=== PATIENT | female | born 1965 | race Caucasian/White ===

== ENCOUNTER → 2016-08-19 | Outpatient (CLI) | payer OTHER ==
[~2016-08-19] MED LIST: /CARB20TAB OR; /CARBXR20T OR; /RANI15TA PO; ALDA25TA2 OR; CALC500T49 OR; CALCITROL OR; CARI350T; CARV6.25 OR; CELE40TA PO; CLON-412 PO; COL; COLA100C2 OR; CRES5TAB; CYCL10TA PO; DYAZ37.5; FURO80TA2 OR; GABA600T3; LEVO200T OR; LEVO200T4 PO; LISI10TA4 OR; MERIDIA; MIRA3350 PO; MIRALEX PO; MORP15TA PO; MORP30TASA PO; NUCY100T15 PO; NUCYNTA PO; OMEP20TA7 OR; OXYC10TA12 OR; OXYC15TA76 PO; OXYC1TAB16 PO; OXYC5CAP2 PO; PERC5TAB8 OR; PERC7.5T8 OR; PRAV10TA2 OR; PRAV10TA4 OR; SKEL-29 PO; SKEL800T5; SKEL800T5 OR; SOMA350T; SPIR25TA2 OR; SPIR25TA2 PO; TIZA4TAB OR; TUMS500C OR; VICODINES TAB; ZOLO50TA PO; [UNRECOGNIZED DRUG - OTHER] PO; nucynta PO
--- NOTE | 2016-09-09 23:38 | ECWPNPC ---
PATIENT NAME: JUNIOR CURTIS : 1965 GENDER: FEMALE VISIT DATE: 08/19/2016 DISCHARGE DATE: 08/19/16 1221 VISIT LOCKED DATE TIME: PHYSICIAN: SHANNAN LOPEZ RESOURCE: SHANNAN LOPEZ REASON FOR APPOINTMENT 1. ARM HISTORY OF PRESENT ILLNESS HISTORY OF PRESENT ILLNESS: PAIN THE PATIENT DESCRIBES THE PAIN... FALL RISK SCREENING: SCREENING :NO FALLS IN THE PAST YEAR TODAY'S VISIT: NOTES: RETURNS TODAY FOR FIRST VISIT SINCE WINTERING IN [place]. WC FOLLOWUP FOR RIGHT ARM PAIN/RIGHT HAND/ELBOW. RATES PAIN TODAY 7/10. HAS IMPROVED MOTION IN THUMB, BUT CAN BARELY MOVE FINGERS. [place] MOVEMENT OF LEFT HAND CAUSES SHARP SHOOTING PAIN UP LEFT HAND AND ARM. . CURRENT MEDICATIONS TAKING KEFLEX 500 MG CAPSULE 1 CAPSULE ORALLY FOUR TIMES DAILY TAKING DIFLUCAN 150 MG TABLET 1 TABLET DIRECTED 1 TODAY AND REPEAT X 1 IN 10 DAYS TAKING CELEXA 40 MG TABLET 1 TABLET ORALLY ONCE A DAY TAKING OMEPRAZOLE 20 MG CAPSULE DELAYED RELEASE 1 CAPSULE ORALLY ONES A DAY TAKING LEVOTHROID 112 MCG TABLET 2 TABLET ORALLY DAILY, NOTES: DR. JIM PONCE TAKING CARVEDILOL 6.25MG - DR DAVIDSON TABLET 1 TABLET WITH FOOD ORALLY TWICE A DAY (DR. DAVIDSON) TAKING FUROSEMIDE 80MG - DR DAVIDSON TABLET 2 TABLETS P.O. TWICE A DAY (DR. DAVIDSON) TAKING VITAMIN D3 4000 CAPSULE 1 CAPSULE ORALLY ONCE A DAY TAKING RANITIDINE HCL 150 MG CAPSULE 1 CAPSULE ORALLY ONCE A DAY, NOTES: ZANTAC TAKING SPIRONOLACTONE 25 MG TABLET 1 TABLET TWICE A DAY (DR. DAVIDSON) ORALLY 30 DAYS TAKING LISINOPRIL 10 MG TABLET 1 TABLET ORALLY ONCE A DAY (DR. DAVIDSON) TAKING PRAVASTATIN SODIUM 40 MG TABLET 1 TABLET ORALLY DAILY TAKING MIRALAX . POWDER DIRECTED ORALLY DAILY -17 GRAMS IN 8 OZ FLUID PRN CONSTIPATION - LARGE JAR TAKING METAXALONE 800 MG TABLET 1 TABLET ORALLY THREE TIMES A DAY (PAIN CLINIC), NOTES: SKELAXIN TAKING CARBAMAZEPINE ER 200 MG CAPSULE EXTENDED RELEASE 12 HOUR 2 CAPSULE ORALLY TWICE A DAY, NOTES: TEGRETOL TAKING MORPHINE SULFATE 30 MG TABLET 1 TABLET NEEDED ORALLY EVERY 4 -6 HRS PRN PAIN MDD=4 CHRONIC PAIN TAKING NUCYNTA ER 100 MG TABLET EXTENDED RELEASE 12 HOUR 1 TABLET ORALLY Q 6 HRS MDD=4 DISCONTINUED CARBAMAZEPINE ER 400 MG TABLET EXTENDED RELEASE 12 HOUR 2 CAPSULE ORALLY TWICE A DAY, NOTES: TEGRETOL DISCONTINUED RANITIDINE HCL 150 MG TABLET TAKE 1 TABLET BY MOUTH ONCE DAILY MEDICATION LIST REVIEWED AND RECONCILED WITH THE PATIENT PAST MEDICAL HISTORY DIASTOLIC CHF, ECHOCARDIOGRAM 6-14. LVEF 75%. [facility] WITH [facility]HD PAPILLARY THYROID CANCER FOLLICULAR VARIANT S/P THYROIDECTOMY AND RADIATION WITH RECURRENT LARYNGEAL NERVE INJURY- DR PONCE 10/30/10 FELI, REFUSES CPAP. TOBACCO ABUSE MORBID OBESITY REFLEX SYMPATHETIC DYSTROPHY OF LEFT ARM, 1988, ARM CAUGHT IN A MIXER WHILE AT WORK, OVER THE YEARS PAIN THE PERSISTEDLY GOT WORSE SCOLIOSIS HERNIATED DISC GERD BONE DENSITY 2013 =NORMAL=5 YEAR FOLLOW UP ALLERGIES NSAIDS: ALLERGY REVIEW OF SYSTEMS CONSTITUTIONAL: ANY CHANGE IN YOUR MEDICAL CONDITION? NO . CHILLS NO . FEVER NO . INFECTION: DO YOU HAVE NEW INFECTIONS? NO . DO YOU HAVE HISTORY OF MRSA? NO . MUSCULOSKELETAL: ANY NEW PATTERNS OF PAIN OR NUMBNESS? NO . GASTROENTEROLOGY: ANY NEW CHANGE IN BOWEL CONTROL? NO . GENITOURINARY: ANY NEW CHANGE IN BLADDER CONTROL? NO . IS THERE A CHANCE YOU COULD BE ? NO . HEMATOLOGY/LYMPH: DO YOU TAKE ANY BLOOD THINNERS? (FOR EXAMPLE- COUMADIN, PLAVIX, AGGRENOX, PLATEL, PRADAXA, OR XARELTO) NO . WHEN WAS YOUR LAST DOSE? DATE: TIME: . NEUROLOGY: HAVE YOU FALLEN IN THE PAST 6 MONTHS? NO . ANY NEW EXTREMITY NUMBNESS OR WEAKNESS? NO . CARDIOLOGY: DO YOU HAVE A PACEMAKER OR DEFIBRILLATOR? NO . CHEST PAIN PATIENT DENIES . LEG EDEMA DENIES . RESPIRATORY: HAVE YOU BEEN SICK IN THE PAST WEEK? NO . FEVER NO . FLU LIKE SYMPTOMS? NO . COUGH NO . INTEGUMENTARY: DO YOU HAVE ANY RASHES OR OPEN SORES? NO . ALLERGIC/IMMUNO: ARE YOU ALLERGIC TO SHELLFISH OR IV DYE? NO . ANY NEW ALLERGIES? NO . PSYCHIATRIC: DO YOU HAVE THOUGHTS OF HURTING YOURSELF OR SOMEONE ELSE? NO . ARE YOU ABUSED, NEGLECTED, OR IN AN UNSAFE ENVIRONMENT? NO . ENDOCRINOLOGY: THYROID DISEASE HX OF THYROID CANCER, FOLLOWED CLOSELY BY JMI PONCE MD . ARE YOU DIABETIC? NO . OTHER: DO YOU NEED ANY PRESCRIPTIONS? NO . IF YES, PLEASE LIST: ____ . ANY NEW PROBLEMS WITH YOUR MEDICATIONS? NO . WHEN DID YOU LAST EAT? ____ . WHEN DID YOU LAST DRINK? ____ . WHAT DID YOU LAST DRINK? ____ . NAME OF PERSON DRIVING YOU HOME? ____ . DO YOU HAVE ANY OTHER QUESTIONS OR CONCERNS NO . HEENT: GENERAL SEEING ENT SPECIALIST FOR POSSIBLE SALIVARY/PAROTID STONES AND IS TO HAVE SCAN OF FACE DONE. . REVIEWED BY: PROVIDER: SHANNAN MEDRANO . VITAL SIGNS WT 296.8 LBS, HT 65 IN, BMI 49.38 INDEX, BP 146/83 MM HG, HR 84 /MIN, RR 20 /MIN, TEMP 99.0 F, OXYGEN SAT % 94%, NA INITIALS SC 11:28, REVIEWED BY: CM. EXAMINATION GENERAL EXAMINATION: GENERAL APPEARANCE:OBESE. HEENT:OICE BREATHY, RASPY. TENDER OVER LEFT ANTERIOR CERVICAL LYMPH CHAIN.. FACE:EDEMA AND TENDERNESS OVER LEFT CHEEK, JAW AND SOFT TISSUES OF THROAT.. LUNGS:CLEAR TO AUSCULTATION BILATERALLY, NO WHEEZES, RALES. OR RHONCHI. HEART:HEART RATE REGULAR, NORMAL S1S2, NO MURMURS, CLICK OR RUBS. MUSCULOSKELETAL:ALLODYNIA TO ANY TOUCH OVER LEFT HAND, FORARM, ELBOW, DETOID. VERY POOR FLEXION/EXTENSION OF FINGERS LEFT HAND. NO OBSERVED SPONTANEOUS MOVEMENT OF LEFT FINGERS OR HAND. TRIGGER POINTS AND TIGHT FIBROUS BANDS NOTED OVER LEFT DELTOID, ANTERIOR CHEST WALL AND OVER LEFT SCAPULA. ASSESSMENTS NEURALGIA - M79.2 (PRIMARY) MYALGIA - M79.1 CHRONIC PRESCRIPTION OPIATE USE - Z79.891 TREATMENT NEURALGIA REFILL CARBAMAZEPINE ER CAPSULE EXTENDED RELEASE 12 HOUR, 200 MG, 2 CAPSULE, ORALLY, TWICE A DAY, 30 DAY(S), 120, REFILLS 3 LAB: CARBAMAZEPINE (TEGRETOL) LEVEL CARBAMAZEPINE 9.3 (4.0-10.0 - UG/ML) NOTES: UTOX TODAY. CLINICAL NOTES: ISTOP REGISTRY REVIEWED AND DEMNOSTRATES COMPLLIANCE. BRINGS IN MEDICATIONS WHICH IS APPROPRIATE FOR WHAT WAS DISPENSED. RECENT URINE TOXICOLOGY REVIEWED. NO UNAUTHORIZED MEDICATIONS. NO ILLICIT SUBSTANCES AND PRESCRIBED MEDICATIONS WERE PRESENT. PROCEDURES PN WORKMANS' COMP OPINION IN YOUR OPINION, WAS THE INCIDENT THAT THE PATIENT DESCRIBED THE COMPETENT MEDICAL CAUSE OF THIS INJURY/ILLNESS? YES ARE THE PATIENT'S COMPLAINTS CONSISTENT WITH HIS/HER HISTORY OF THE INJURY/ILLNESS? YES IS THE PATIENT'S HISTORY OF THE INJURY/ILLNESS CONSISTENT WITH YOUR OBJECTIVE FINDING? YES WHAT IS THE PERCENTAGE OF TEMPORARY IMPAIRMENT? TOTAL = 100% IS THE PATIENT WORKING? NO DOCTOR ON SITE: EVERTON SAPP MD PROCEDURE CODES FA211 ESTABILISHED PATIENT [facility] CHARGE DISPOSITION & COMMUNICATION FOLLOW UP [address] SNOW - (REASON: WC LEFT ARM PAIN) ELECTRONICALLY SIGNED BY GONZALO REID ON 09/09/2016 AT 05:23 PM EDT DISCLAIMER : THIS IS A VISIT SUMMARY EXTRACTED FROM THE [employer] CHART. IT IS NOT A COPY OF THE [employer] PROGRESS NOTE. JUAN PABLO
== END ==
LOC: M PAIN 11:00
PROVIDERS: ATTEND Nurse Practitioner Family
DX: G89.29 Other chronic pain (principal); M79.2 Neuralgia and neuritis, unspecified; M79.1 Myalgia; I10 Essential (primary) hypertension; K21.9 Gastro-esophageal reflux disease without esophagitis; G47.33 Obstructive sleep apnea (adult) (pediatric); C73 Malignant neoplasm of thyroid gland; E55.9 Vitamin D deficiency, unspecified; Z72.0 Tobacco use; E66.9 Obesity, unspecified; Z68.42 Body mass index [BMI] 45.0-49.9, adult; Z88.6 Allergy status to analgesic agent; Z79.891 Long term (current) use of opiate analgesic; Z79.899 Other long term (current) drug therapy

== ENCOUNTER → 2016-08-23 | Outpatient (REF) | payer MEDICARE, OTHER ==
[~2016-08-23] MED LIST changes: +NUCY100T11 PO; -NUCY100T15 PO; -SKEL-29 PO; +SKEL800T97 PO
[2016-08-23 13:28] LABS: FREE T4 1.24 NG/DL (0.76-1.46)
== END ==
LOC: M LABDRAW1 12:36
PROVIDERS: ATTEND Internal Medicine Endocrinology, Diabetes & Metabolism
DX: C73 Malignant neoplasm of thyroid gland (principal)

== ENCOUNTER → 2016-08-23 | Outpatient (REF) | payer MEDICARE, OTHER ==
[2016-08-23 13:24] LABS: ALBUMIN 3.9 GM/DL (3.2-5.2); ANION GAP 10 MEQ/L (8-16); BLOOD UREA NITROGEN 17 MG/DL (7-18); CALCIUM LEVEL 8.6 MG/DL (8.5-10.1); CARBON DIOXIDE LEVEL 28 MEQ/L (21-32); CHLORIDE LEVEL 102 MEQ/L (98-107); CHOLESTEROL LEVEL 224 MG/DL (<200); CREATININE FOR GFR 0.89 MG/DL (0.55-1.02); GLOMERULAR FILTRATION RATE > 60.0 (>51); GLUCOSE, FASTING 104 MG/DL (70-105); PHOSPHORUS LEVEL 3.7 MG/DL (2.5-4.9); POTASSIUM SERUM 4.3 MEQ/L (3.5-5.1); SODIUM LEVEL 140 MEQ/L (136-145); TRIGLYCERIDES LEVEL 204 MG/DL (<150)
== END ==
LOC: M LABDRAW1 12:37
PROVIDERS: ATTEND Nurse Practitioner Family
DX: I11.0 Hypertensive heart disease with heart failure (principal); E78.5 Hyperlipidemia, unspecified

== ENCOUNTER → 2016-08-23 | Outpatient (REF) | payer OTHER ==
[~2016-08-23] MED LIST changes: -LEVO200T4 PO; -MIRA3350 PO; +MIRALEX OR; -MIRALEX PO; -MORP30TASA PO; -NUCY100T11 PO; -SKEL800T97 PO; -SPIR25TA2 PO
== END ==
LOC: M LABDRAW1 12:38
PROVIDERS: ATTEND Nurse Practitioner Family
DX: M79.2 Neuralgia and neuritis, unspecified (principal)

== ENCOUNTER → 2016-08-29 | Outpatient (REF) | payer MEDICARE ==
[~2016-08-29] MED LIST changes: +LEVO200T4 PO; +MIRA3350 PO; -MIRALEX OR; +MIRALEX PO; +MORP30TASA PO; +NUCY100T15 PO; +SKEL-29 PO; +SPIR25TA2 PO
[2016-08-29 16:11] LABS: BASO # 0.1 K/mm3 (0.0-0.2); BASO % 0.6 % (0.0-1.0); EOS # 0.3 K/mm3 (0.0-0.50); EOS % 2.2 % (0.0-3.0); LARGE UNSTAINED CELL # 0.3 K/mm3 (0.0-0.4); LYMPH # 2.6 K/mm3 (1.5-4.5); LYMPH % 18.1 % (24.0-44.0); MEAN CORPUSCULAR HEMOGLOBIN 29.7 pg (27.0-33.0); MEAN CORPUSCULAR HGB CONC 33.1 g/dl (32.0-36.5); MEAN CORPUSCULAR VOLUME 89.7 fl (80.0-96.0); MONO # 0.8 K/mm3 (0.0-0.8); MONO % 6.6 % (0.0-5.0); NEUTROPHILS # 8.9 K/mm3 (1.8-7.7); NEUTROPHILS % 70.4 % (36.0-66.0); PLATELET COUNT, AUTOMATED 301 k/mm3 (150-450); RED CELL DISTRIBUTION WIDTH 14.1 % (11.5-14.5); WHITE BLOOD COUNT 12.7 K/mm3 (4.0-10.0)
[2016-08-29 16:43] LABS: ALBUMIN 3.9 GM/DL (3.2-5.2); ALBUMIN/GLOBULIN RATIO 1.03 (1.00-1.93); ALKALINE PHOSPHATASE 83 U/L (45-117); ALT/SGPT 24 U/L (12-78); ANION GAP 7 MEQ/L (8-16); AST/SGOT 13 U/L (15-37); BILIRUBIN,TOTAL 0.3 MG/DL (0.2-1.0); BLOOD UREA NITROGEN 15 MG/DL (7-18); CALCIUM LEVEL 8.3 MG/DL (8.5-10.1); CARBON DIOXIDE LEVEL 33 MEQ/L (21-32); CHLORIDE LEVEL 100 MEQ/L (98-107); CREATININE FOR GFR 0.88 MG/DL (0.55-1.02); GLOMERULAR FILTRATION RATE > 60.0 (>51); GLUCOSE, FASTING 66 MG/DL (70-105); POTASSIUM SERUM 3.9 MEQ/L (3.5-5.1); SODIUM LEVEL 140 MEQ/L (136-145); TOTAL PROTEIN 7.7 GM/DL (6.4-8.2)
== END ==
LOC: M SFHCPLAZ 14:05
PROVIDERS: ATTEND Physician Assistant
DX: Z01.818 Encounter for other preprocedural examination (principal); C73 Malignant neoplasm of thyroid gland; M25.774 Osteophyte, right foot; G47.33 Obstructive sleep apnea (adult) (pediatric); I11.0 Hypertensive heart disease with heart failure; I50.30 Unspecified diastolic (congestive) heart failure; K21.9 Gastro-esophageal reflux disease without esophagitis; G90.519 Complex regional pain syndrome I of unspecified upper limb; Z72.0 Tobacco use
CPT/HCPCS: 36415; 80053; 85025; G0463

== ENCOUNTER → 2016-09-04 | Day surgery (SDC) | payer MEDICARE ==
[~2016-09-04] VITALS: Ht 165.1 cm; Wt 133.8 kg
[~2016-09-04] MED LIST changes: +BACITRACIN PWD 50,000 UNITS VIAL As Ordered ONE; +BUPIVACAINE HCL 0.5% 30 ML VIAL As Ordered ONE; +KETAMINE HCL 200 MG/20 ML VIAL As Ordered ONE; +LIDOCAINE 2% INJ 100 MG/5 ML SDV (FOR ANES.) As Ordered ONE; +LIDOCAINE 2% MDV 20 ML VIAL As Ordered ONE; +LR 1,000 ML IV ONE; +MIDAZOLAM INJ 2 MG/2 ML VIAL (J2250) As Ordered ONE; +NEOSPORIN GU IRRIG 20 ML VIAL As Ordered ONE; +PROPOFOL 200 MG/20 ML VIAL As Ordered ONE; +dexameTHASONE 4 MG/ML 1ML VIAL (J1100) As Ordered ONE; +fentaNYL 100 MCG/2 ML INJECTION (J3010) As Ordered ONE
[2016-09-04 15:45] VITALS: BP 132/74
--- NOTE | 2016-09-05 09:37 | RO ---
DATE OF PROCEDURE: 09/04/2016 PREPROCEDURE DIAGNOSIS: Subungual exostosis right foot. POSTPROCEDURE DIAGNOSIS: Subungual exostosis right foot. PROCEDURE: Excision of subungual exostosis right foot. Total nail plate avulsion right hallux. SURGEON: Roberto Mcdonough DPM SHORER: None. ANESTHESIA: Local, monitored anesthesia care (MAC). IRRIGATION: Dilute bacitracin, neomycin and polymyxin B solution. DESCRIPTION OF PROCEDURE: On 09/04/2016, this 51-year-old white female was taken from her hospital room to the operating room and placed on the operating room table in a supine position. Following the induction of IV sedation, local and regional anesthesia, the right lower extremity was prepped and draped in the usual aseptic manner. Attention was directed to the patient' s right foot and the following procedure was performed. NAIL PLATE AVULSION RIGHT HALLUX: Attention was directed to the patient's right foot and the hallux nail plate was avulsed utilizing a periosteal elevator and hemostat. The following procedure was then performed: EXCISION OF SUBUNGUAL EXOSTOSIS RIGHT DISTAL PHALANX OF THE HALLUX: Attention was directed to the patient's right hallux where an incision was made along the space between the nail bed and the skin on the hallux making a crescent shaped incision. Dissection was then carried down to the distal phalanx. Utilizing a periosteal elevator, a flap was created dorsally exposing the subungual exostosis. Utilizing a [place] bone splitting forceps, the exostosis was osteotomized. Any remaining spicules were then rongeured, followed by utilizing a hand held rasp. Intraoperative C-arm image revealed resection of the exostosis. The wound was flushed with copious amounts of dilute bacitracin, neomycin and polymyxin B solution. Bone wax was then placed over the distal phalanx, followed by Gelfoam. The incision was closed with #4-0 Prolene in a simple interrupted fashion. A dressing was applied consisting of Adaptic, 4 x 4's, Marky and Kerlix. The ankle tourniquet was rapidly deflated and instantaneous capillary filling time was noted in the patients right foot. The patient having apparently tolerated the surgical procedure well was taken from the operating room (OR) to the recovery room with vital signs stable and the patient afebrile for further monitoring by the anesthesia department. All surgical specimens removed during the operative procedure were sent to pathology for gross and microscopic examination. Postoperative instructions will be given upon discharge. edited: 09/12/2016 1525 tkf JUAN PABLO
== END | disposition home or self-care (01) ==
LOC: M SDC 11:20
PROVIDERS: ATTEND Podiatrist
DX: M25.774 Osteophyte, right foot (principal); I50.9 Heart failure, unspecified; I10 Essential (primary) hypertension; K21.9 Gastro-esophageal reflux disease without esophagitis; E78.5 Hyperlipidemia, unspecified; E04.1 Nontoxic single thyroid nodule; Z79.899 Other long term (current) drug therapy; Z88.8 Allergy status to other drugs, medicaments and biological substances; F17.210 Nicotine dependence, cigarettes, uncomplicated; Z92.3 Personal history of irradiation; Z85.850 Personal history of malignant neoplasm of thyroid; F32.9 Major depressive disorder, single episode, unspecified
CPT/HCPCS: 28124; 88300; J0690; J2250; J3010

== ENCOUNTER → 2016-10-17 | Outpatient (CLI) | payer OTHER, MEDICARE ==
[~2016-10-17] MED LIST changes: -BACITRACIN PWD 50,000 UNITS VIAL As Ordered ONE; -BUPIVACAINE HCL 0.5% 30 ML VIAL As Ordered ONE; -KETAMINE HCL 200 MG/20 ML VIAL As Ordered ONE; -LIDOCAINE 2% INJ 100 MG/5 ML SDV (FOR ANES.) As Ordered ONE; -LIDOCAINE 2% MDV 20 ML VIAL As Ordered ONE; -LR 1,000 ML IV ONE; -MIDAZOLAM INJ 2 MG/2 ML VIAL (J2250) As Ordered ONE; -NEOSPORIN GU IRRIG 20 ML VIAL As Ordered ONE; +NUCY100T11 PO; -NUCY100T15 PO; -PROPOFOL 200 MG/20 ML VIAL As Ordered ONE; -SKEL-29 PO; +SKEL800T97 PO; -dexameTHASONE 4 MG/ML 1ML VIAL (J1100) As Ordered ONE; -fentaNYL 100 MCG/2 ML INJECTION (J3010) As Ordered ONE
--- NOTE | 2016-10-29 01:32 | ECWPNPC ---
PATIENT NAME: JUNIOR CURTIS : 1965 GENDER: FEMALE VISIT DATE: 10/17/2016 DISCHARGE DATE: 10/17/16 1500 VISIT LOCKED DATE TIME: PHYSICIAN: EVERTON SNOW RESOURCE: EVERTON SNOW REASON FOR APPOINTMENT 1. WC RIGHT ARM HISTORY OF PRESENT ILLNESS HISTORY OF PRESENT ILLNESS: PAIN THE PATIENT DESCRIBES THE PAIN... 51 YEAR OLD FEMALE PATIENT WITH HISTORY OF CHRONIC RIGHT ARM PAIN. PATIENT DESCRIBES THE PAIN BURNING, SORE, AND SHOOTING WITH THE PAIN COMING AND GOING WITH A CURRENT PAIN SCORE OF 7/10. PATIENT WAS HURT WHILE WORKING AT [employer] IN 1988 A [place]. PATIENT STATES THAT SHE HAS NOT RECEIVED ANY SURGERY ON THE ARM AND THAT PHYSICAL THERAPY DID NOT AID IN PAIN RELIEF. PATIENT IS CURRENTLY USING SKELAXIN, NUCYNTA, MORPHINE, AND CARBAMAZEPINE ER AND REPORTS THAT THE MEDICATION KEEPS HER MOBILE AND FUNCTIONAL. PATIENT DENIES UNEXPLAINABLE WEIGHT LOSS, FEVER, CHILLS, NEW CHANGES ON HER URINARY OR BOWEL CONTROL. FALL RISK SCREENING: SCREENING :NO FALLS IN THE PAST YEAR CURRENT MEDICATIONS TAKING CELEXA 40 MG TABLET 1 TABLET ORALLY ONCE A DAY TAKING OMEPRAZOLE 20 MG CAPSULE DELAYED RELEASE 1 CAPSULE ORALLY ONES A DAY TAKING CARVEDILOL 6.25MG - DR DAVIDSON TABLET 1 TABLET WITH FOOD ORALLY TWICE A DAY (DR. DAVIDSON) TAKING FUROSEMIDE 80MG - DR DAVIDSON TABLET 2 TABLETS P.O. TWICE A DAY (DR. DAVIDSON) TAKING VITAMIN D3 4000 CAPSULE 1 CAPSULE ORALLY ONCE A DAY TAKING RANITIDINE HCL 150 MG CAPSULE 1 CAPSULE ORALLY ONCE A DAY, NOTES: ZANTAC TAKING SPIRONOLACTONE 25 MG TABLET 1 TABLET TWICE A DAY (DR. DAVIDSON) ORALLY 30 DAYS TAKING LISINOPRIL 10 MG TABLET 1 TABLET ORALLY ONCE A DAY (DR. DAVIDSON) TAKING PRAVASTATIN SODIUM 40 MG TABLET 1 TABLET ORALLY DAILY TAKING MIRALAX . POWDER DIRECTED ORALLY DAILY -17 GRAMS IN 8 OZ FLUID PRN CONSTIPATION - LARGE JAR TAKING METAXALONE 800 MG TABLET 1 TABLET ORALLY THREE TIMES A DAY (PAIN CLINIC), NOTES: SKELAXIN TAKING CARBAMAZEPINE ER 200 MG CAPSULE EXTENDED RELEASE 12 HOUR 2 CAPSULE ORALLY TWICE A DAY TAKING SYNTHROID 200 MCG TABLET 1 TABLET ON AN EMPTY STOMACH IN THE MORNING ORALLY ONCE A DAY TAKING NUCYNTA ER 100 MG TABLET EXTENDED RELEASE 12 HOUR 1 TABLET ORALLY Q 6 HRS MDD=4 TAKING MORPHINE SULFATE 15 MG TABLET 1 TABLET NEEDED ORALLY EVERY 6 HRS PRN PAIN MDD=4 NOT-TAKING KEFLEX 500 MG CAPSULE 1 CAPSULE ORALLY FOUR TIMES DAILY NOT-TAKING DIFLUCAN 150 MG TABLET 1 TABLET DIRECTED 1 TODAY AND REPEAT X 1 IN 10 DAYS NOT-TAKING LEVOTHROID 112 MCG TABLET 2 TABLET ORALLY DAILY, NOTES: DR. JIM PONCE MEDICATION LIST REVIEWED AND RECONCILED WITH THE PATIENT PAST MEDICAL HISTORY DIASTOLIC CHF, ECHOCARDIOGRAM 6-14. LVEF 75%. [facility] HTN WITH HHD PAPILLARY THYROID CANCER FOLLICULAR VARIANT S/P THYROIDECTOMY AND RADIATION WITH RECURRENT LARYNGEAL NERVE INJURY- DR PONCE 10/30/10 FELI, REFUSES CPAP. TOBACCO ABUSE MORBID OBESITY REFLEX SYMPATHETIC DYSTROPHY OF LEFT ARM, 1988, ARM CAUGHT IN A MIXER WHILE AT WORK, OVER THE YEARS PAIN THE PERSISTEDLY GOT WORSE SCOLIOSIS HERNIATED DISC GERD BONE DENSITY 2013 =NORMAL=5 YEAR FOLLOW UP ALLERGIES NSAIDS: ALLERGY REVIEW OF SYSTEMS REVIEWED BY: PROVIDER: EVERTON SNOW MD . CONSTITUTIONAL: ANY CHANGE IN YOUR MEDICAL CONDITION? NO . CHILLS NO . FEVER NO . INFECTION: DO YOU HAVE NEW INFECTIONS? NO . DO YOU HAVE HISTORY OF MRSA? NO . MUSCULOSKELETAL: ANY NEW PATTERNS OF PAIN OR NUMBNESS? NO . GASTROENTEROLOGY: ANY NEW CHANGE IN BOWEL CONTROL? NO . GENITOURINARY: ANY NEW CHANGE IN BLADDER CONTROL? NO . IS THERE A CHANCE YOU COULD BE ? NO . HEMATOLOGY/LYMPH: DO YOU TAKE ANY BLOOD THINNERS? (FOR EXAMPLE- COUMADIN, PLAVIX, AGGRENOX, PLATEL, PRADAXA, OR XARELTO) NO . WHEN WAS YOUR LAST DOSE? DATE: TIME: . NEUROLOGY: HAVE YOU FALLEN IN THE PAST 6 MONTHS? NO . ANY NEW EXTREMITY NUMBNESS OR WEAKNESS? NO . CARDIOLOGY: DO YOU HAVE A PACEMAKER OR DEFIBRILLATOR? NO . RESPIRATORY: HAVE YOU BEEN SICK IN THE PAST WEEK? NO . FEVER NO . FLU LIKE SYMPTOMS? NO . COUGH NO . INTEGUMENTARY: DO YOU HAVE ANY RASHES OR OPEN SORES? NO . ALLERGIC/IMMUNO: ARE YOU ALLERGIC TO SHELLFISH OR IV DYE? NO . ANY NEW ALLERGIES? NO . PSYCHIATRIC: DO YOU HAVE THOUGHTS OF HURTING YOURSELF OR SOMEONE ELSE? NO . ARE YOU ABUSED, NEGLECTED, OR IN AN UNSAFE ENVIRONMENT? NO . ENDOCRINOLOGY: ARE YOU DIABETIC? NO . OTHER: DO YOU NEED ANY PRESCRIPTIONS? NO . IF YES, PLEASE LIST: ____ . ANY NEW PROBLEMS WITH YOUR MEDICATIONS? NO . WHEN DID YOU LAST EAT? ____ . WHEN DID YOU LAST DRINK? ____ . WHAT DID YOU LAST DRINK? ____ . NAME OF PERSON DRIVING YOU HOME? ____ . DO YOU HAVE ANY OTHER QUESTIONS OR CONCERNS NO . VITAL SIGNS WT 294.4 LBS, HT 65 IN, BMI 48.99 INDEX, BP 127/73 MM HG, HR 89 /MIN, RR 18 /MIN, TEMP 96.0 F, OXYGEN SAT % 96%, NA INITIALS TL 1352, REVIEWED BY: CM. EXAMINATION : PATIENT IS ALERT O X 3 AND COOPERATIVE. HYPERPATHIA OVER RIGHT SHOULDER AREA. ALLODYNIA OVER ARM, AND UNABLE TO TOUCH THE HAND. PATIENT REPORTS COLOR AND TEMPERATURE CHANGES OF THE HAND WELL SWELLING. ASSESSMENTS NEURALGIA - M79.2 (PRIMARY) NEURALGIA RIGHT UPPER EXTREMITY. TREATMENT NEURALGIA REFILL CARBAMAZEPINE ER CAPSULE EXTENDED RELEASE 12 HOUR, 200 MG, 2 CAPSULE, ORALLY, TWICE A DAY, 30 DAY(S), 120, REFILLS 3 NOTES: WE DISCUSSED SEVERAL ISSUES WITH MR. HUNTER' PAIN MANAGEMENT CASE. AT THIS TIME THE PATIENT WILL CONTINUE WITH THE SAME MEDICATION REGIME BEFORE. PATIENT IS USING THE SKELAXIN FOR MUSCLE SPASMS, NUCYNTA AND MORPHINE FOR THE SOMATIC PAIN, AND CARBAMAZEPINE FOR THE NEUROPATHIC PAIN. PATIENT REPORTS TRYING TO DECREASE HER MORPHINE AND THE PAIN INCREASED SO SEVERELY SHE WAS NOT ABLE TO FUNCTION. URINE TOXICOLOGY REPORT DONE ON 08/19/16 SHOWS CONSISTENT RESULTS WITH THE PATIENT'S MEDICATION LIST. PATIENT WAS REMINDED TO BRING MEDS TO EACH VISIT. AT THIS TIME THE PATIENT DOES NOT WANT TO MOVE FORWARD WITH INJECTIONS. PATIENT WILL RETURN TO THE CLINIC IN 3 WEEKS TO FURTHER DISCUSS HER CASE. INSTRUCTIONS WERE GIVEN, QUESTIONS WERE ANSWERED, PATIENT REPORTS UNDERSTANDING AND AGREES WITH THE PLAN. I, VIET DEWEY, DOCUMENTED THE ABOVE INFORMATION ACTING A SCRIBE FOR DR. SNOW. I HAVE REVIEWED THE ABOVE DOCUMENT, WRITTEN BY VIET NASCIMENTO AND I VERIFY THAT IT IS ACCURATE. OTHERS REFILL NUCYNTA ER TABLET EXTENDED RELEASE 12 HOUR, 100 MG, 1 TABLET, ORALLY, Q 6 HRS MDD=4, 30 DAY(S), 120, REFILLS 0 REFILL METAXALONE TABLET, 800 MG, 1 TABLET, ORALLY, THREE TIMES A DAY NEEDED FOR SPASMS AND PAIN MDD3, 30 DAY(S), 90, REFILLS 0, NOTES: SKELAXIN REFILL MORPHINE SULFATE TABLET, 15 MG, 1 TABLET NEEDED, ORALLY, EVERY 6 HRS PRN PAIN MDD=4, 30 DAY(S), 120, REFILLS 0 PROCEDURES PN WORKMANS' COMP OPINION IN YOUR OPINION, WAS THE INCIDENT THAT THE PATIENT DESCRIBED THE COMPETENT MEDICAL CAUSE OF THIS INJURY/ILLNESS? YES ARE THE PATIENT'S COMPLAINTS CONSISTENT WITH HIS/HER HISTORY OF THE INJURY/ILLNESS? YES IS THE PATIENT'S HISTORY OF THE INJURY/ILLNESS CONSISTENT WITH YOUR OBJECTIVE FINDING? YES WHAT IS THE PERCENTAGE OF TEMPORARY IMPAIRMENT? TOTAL = 100% IS THE PATIENT WORKING? NO DOCTOR ON SITE: EVERTON SAPP MD PROCEDURE CODES FA211 ESTABILISHED PATIENT [facility] CHARGE G8427 DOC MEDS VERIFIED W/PT OR RE G8730 PAIN ASSESS POS TOOL F/U PLAN DOC DISPOSITION & COMMUNICATION FOLLOW UP 3 WEEKS ELECTRONICALLY SIGNED BY EVERTON SNOW MD ON 10/28/2016 AT 08:51 PM EDT DISCLAIMER : THIS IS A VISIT SUMMARY EXTRACTED FROM THE [employer] CHART. IT IS NOT A COPY OF THE [employer] PROGRESS NOTE. JUAN PABLO
== END ==
LOC: M PAIN 13:00
PROVIDERS: ATTEND Anesthesiology
DX: G89.29 Other chronic pain (principal); M79.601 Pain in right arm; M79.2 Neuralgia and neuritis, unspecified; I11.0 Hypertensive heart disease with heart failure; K21.9 Gastro-esophageal reflux disease without esophagitis; G47.33 Obstructive sleep apnea (adult) (pediatric); I50.30 Unspecified diastolic (congestive) heart failure; E55.9 Vitamin D deficiency, unspecified; Z72.0 Tobacco use; Z88.6 Allergy status to analgesic agent; Z79.899 Other long term (current) drug therapy

== ENCOUNTER → 2016-11-07 | Outpatient (CLI) | payer OTHER, MEDICARE ==
--- NOTE | 2016-11-26 01:18 | ECWPNPC ---
PATIENT NAME: JUNIOR CURTIS : 1965 GENDER: FEMALE VISIT DATE: 11/07/2016 DISCHARGE DATE: 11/07/16 1445 VISIT LOCKED DATE TIME: PHYSICIAN: EVERTON SNOW RESOURCE: EVERTON SNOW REASON FOR APPOINTMENT 1. LEFT ARM PAIN W/C HISTORY OF PRESENT ILLNESS HISTORY OF PRESENT ILLNESS: PAIN THE PATIENT DESCRIBES THE PAIN... 51 YEAR OLD FEMALE PATIENT WITH HISTORY OF CHRONIC LEFT ARM PAIN. PATIENT DESCRIBES THE PAIN BURNING, SORE, AND SHOOTING WITH THE PAIN COMING AND GOING WITH A CURRENT PAIN SCORE OF 7/10. PATIENT WAS HURT WHILE WORKING AT [employer] IN 1988 A [place]. PATIENT STATES THAT SHE HAS NOT RECEIVED ANY SURGERY ON THE ARM AND THAT PHYSICAL THERAPY DID NOT AID IN PAIN RELIEF. PATIENT IS CURRENTLY USING SKELAXIN, NUCYNTA, MORPHINE, AND CARBAMAZEPINE ER AND REPORTS THAT THE MEDICATION KEEPS HER MOBILE AND FUNCTIONAL .MRS. CURTIS STATES THAT SHE HAS INTENSE PAIN IF SOMETHING TOUCHES HER ARM. PATIENT DENIES UNEXPLAINABLE WEIGHT LOSS, FEVER, CHILLS, NEW CHANGES ON HER URINARY OR BOWEL CONTROL. FALL RISK SCREENING: SCREENING :NO FALLS IN THE PAST YEAR CURRENT MEDICATIONS TAKING CELEXA 40 MG TABLET 1 TABLET ORALLY ONCE A DAY TAKING OMEPRAZOLE 20 MG CAPSULE DELAYED RELEASE 1 CAPSULE ORALLY ONES A DAY TAKING CARVEDILOL 6.25MG - DR DAVIDSON TABLET 1 TABLET WITH FOOD ORALLY TWICE A DAY (DR. DAVIDSON) TAKING FUROSEMIDE 80MG - DR DAVIDSON TABLET 2 TABLETS P.O. TWICE A DAY (DR. DAVIDSON) TAKING VITAMIN D3 4000 CAPSULE 1 CAPSULE ORALLY ONCE A DAY TAKING RANITIDINE HCL 150 MG CAPSULE 1 CAPSULE ORALLY ONCE A DAY, NOTES: ZANTAC TAKING SPIRONOLACTONE 25 MG TABLET 1 TABLET TWICE A DAY (DR. DAVIDSON) ORALLY 30 DAYS TAKING LISINOPRIL 10 MG TABLET 1 TABLET ORALLY ONCE A DAY (DR. DAVIDSON) TAKING PRAVASTATIN SODIUM 40 MG TABLET 1 TABLET ORALLY DAILY TAKING MIRALAX . POWDER DIRECTED ORALLY DAILY -17 GRAMS IN 8 OZ FLUID PRN CONSTIPATION - LARGE JAR TAKING SYNTHROID 200 MCG TABLET 1 TABLET ON AN EMPTY STOMACH IN THE MORNING ORALLY ONCE A DAY TAKING CARBAMAZEPINE ER 200 MG CAPSULE EXTENDED RELEASE 12 HOUR 2 CAPSULE ORALLY TWICE A DAY TAKING NUCYNTA ER 100 MG TABLET EXTENDED RELEASE 12 HOUR 1 TABLET ORALLY Q 6 HRS MDD=4 TAKING METAXALONE 800 MG TABLET 1 TABLET ORALLY THREE TIMES A DAY NEEDED FOR SPASMS AND PAIN MDD3, NOTES: SKELAXIN TAKING MORPHINE SULFATE 30 MG TABLET 1 TABLET NEEDED ORALLY EVERY 6 HRS PRN PAIN MDD=4 NOT-TAKING KEFLEX 500 MG CAPSULE 1 CAPSULE ORALLY FOUR TIMES DAILY NOT-TAKING DIFLUCAN 150 MG TABLET 1 TABLET DIRECTED 1 TODAY AND REPEAT X 1 IN 10 DAYS NOT-TAKING LEVOTHROID 112 MCG TABLET 2 TABLET ORALLY DAILY, NOTES: DR. JIM PONCE MEDICATION LIST REVIEWED AND RECONCILED WITH THE PATIENT PAST MEDICAL HISTORY DIASTOLIC CHF, ECHOCARDIOGRAM 6-. LVEF 75%. [facility] HTN WITH HHD PAPILLARY THYROID CANCER FOLLICULAR VARIANT S/P THYROIDECTOMY AND RADIATION WITH RECURRENT LARYNGEAL NERVE INJURY- DR OPNCE 10/30/10 FELI, REFUSES CPAP. TOBACCO ABUSE MORBID OBESITY REFLEX SYMPATHETIC DYSTROPHY OF LEFT ARM, 1988, ARM CAUGHT IN A MIXER WHILE AT WORK, OVER THE YEARS PAIN THE PERSISTEDLY GOT WORSE SCOLIOSIS HERNIATED DISC GERD BONE DENSITY 2013 =NORMAL=5 YEAR FOLLOW UP ALLERGIES NSAIDS: ALLERGY REVIEW OF SYSTEMS REVIEWED BY: PROVIDER: EVERTON SNOW MD . CONSTITUTIONAL: ANY CHANGE IN YOUR MEDICAL CONDITION? NO . CHILLS NO . FEVER NO . INFECTION: DO YOU HAVE NEW INFECTIONS? NO . DO YOU HAVE HISTORY OF MRSA? NO . MUSCULOSKELETAL: ANY NEW PATTERNS OF PAIN OR NUMBNESS? NO . GASTROENTEROLOGY: ANY NEW CHANGE IN BOWEL CONTROL? NO . GENITOURINARY: ANY NEW CHANGE IN BLADDER CONTROL? NO . IS THERE A CHANCE YOU COULD BE ? NO . HEMATOLOGY/LYMPH: DO YOU TAKE ANY BLOOD THINNERS? (FOR EXAMPLE- COUMADIN, PLAVIX, AGGRENOX, PLATEL, PRADAXA, OR XARELTO) NO . WHEN WAS YOUR LAST DOSE? DATE: TIME: . NEUROLOGY: HAVE YOU FALLEN IN THE PAST 6 MONTHS? NO . ANY NEW EXTREMITY NUMBNESS OR WEAKNESS? NO . CARDIOLOGY: DO YOU HAVE A PACEMAKER OR DEFIBRILLATOR? NO . RESPIRATORY: HAVE YOU BEEN SICK IN THE PAST WEEK? NO . FEVER NO . FLU LIKE SYMPTOMS? NO . COUGH NO . INTEGUMENTARY: DO YOU HAVE ANY RASHES OR OPEN SORES? YES, 2 &QUOT;BOILS&QUOT; ON LEFT UPPER THIGH, PT PLANS TO SEE HER PRIMARY ABOUT THIS . ALLERGIC/IMMUNO: ARE YOU ALLERGIC TO SHELLFISH OR IV DYE? NO . ANY NEW ALLERGIES? NO . PSYCHIATRIC: DO YOU HAVE THOUGHTS OF HURTING YOURSELF OR SOMEONE ELSE? NO . ARE YOU ABUSED, NEGLECTED, OR IN AN UNSAFE ENVIRONMENT? NO . ENDOCRINOLOGY: ARE YOU DIABETIC? NO . OTHER: DO YOU NEED ANY PRESCRIPTIONS? NO . IF YES, PLEASE LIST: ____ . ANY NEW PROBLEMS WITH YOUR MEDICATIONS? NO . WHEN DID YOU LAST EAT? ____ . WHEN DID YOU LAST DRINK? ____ . WHAT DID YOU LAST DRINK? ____ . NAME OF PERSON DRIVING YOU HOME? ____ . DO YOU HAVE ANY OTHER QUESTIONS OR CONCERNS NO . VITAL SIGNS WT 292.8 LBS, HT 65 IN, BMI 48.72 INDEX, BP 123/95 MM HG, HR 92 /MIN, RR 18 /MIN, TEMP 96.7 F, OXYGEN SAT % 97%, SAFE IN ENV? (Y/N) YES, NA INITIALS SC13:51, REVIEWED BY: DAREN. EXAMINATION : PATIENT IS ALERT O X 3 AND COOPERATIVE. HYPERPATHIA OVER LEFT SHOULDER AREA. ALLODYNIA OVER ARM, AND UNABLE TO TOUCH THE HAND. PATIENT REPORTS COLOR AND TEMPERATURE CHANGES OF THE HAND WELL SWELLING. BLUE COLOR OVER PALM. DIFFICULTIES OPENING AND CLOSING HAND. UNABLE TO FOREST EXAMINER WITH LEFT HAND. ASSESSMENTS NEURALGIA - M79.2 (PRIMARY) NEURALGIA UPPER LEFT EXTREMITY. TREATMENT NEURALGIA REFILL CARBAMAZEPINE ER CAPSULE EXTENDED RELEASE 12 HOUR, 200 MG, 2 CAPSULE, ORALLY, TWICE A DAY, 30 DAY(S), 120, REFILLS 2 NOTES: WE DISCUSSED SEVERAL ISSUES WITH MR. HUNTER' PAIN MANAGEMENT CASE. AT THIS TIME THE PATIENT WILL CONTINUE WITH THE SAME MEDICATION REGIME BEFORE. PATIENT IS USING THE SKELAXIN FOR MUSCLE SPASMS, NUCYNTA AND MORPHINE FOR THE SOMATIC PAIN, AND CARBAMAZEPINE FOR THE NEUROPATHIC PAIN. PATIENT REPORTS TRYING TO DECREASE HER MORPHINE AND THE PAIN INCREASED SO SEVERELY SHE WAS NOT ABLE TO FUNCTION. PATIENT REPORTS METAXALONE KEEPS HER MOBILE, PATIENT IS ABLE TO SHOWER AND WASH HER HANDS WHILE USING THIS MEDICATION. URINE TOXICOLOGY REPORT DONE ON 08/19/16 SHOWS CONSISTENT RESULTS WITH THE PATIENT'S MEDICATION LIST. PATIENT BROUGHT HER MEDICATION TO TODAY'S VISIT IN THEIR ORIGINAL BOTTLES. PATIENT ALSO REPORTS SHE WILL BE USING HER CPAP EVERY NIGHT DUE TO SLEEP APNEA. AT THIS TIME THE PATIENT DOES NOT WANT TO MOVE FORWARD WITH INJECTIONS. PATIENT WILL RETURN TO THE CLINIC IN 3 WEEKS TO FURTHER DISCUSS HER CASE. INSTRUCTIONS WERE GIVEN, QUESTIONS WERE ANSWERED, PATIENT REPORTS UNDERSTANDING AND AGREES WITH THE PLAN. I, VIET DEWEY, DOCUMENTED THE ABOVE INFORMATION ACTING A SCRIBE FOR DR. SNOW. I HAVE REVIEWED THE ABOVE DOCUMENT, WRITTEN BY VIET NASCIMENTO AND I VERIFY THAT IT IS ACCURATE. OTHERS REFILL NUCYNTA ER TABLET EXTENDED RELEASE 12 HOUR, 100 MG, 1 TABLET, ORALLY, Q 6 HRS MDD=4, 30 DAY(S), 120, REFILLS 0 REFILL MORPHINE SULFATE TABLET, 30 MG, 1 TABLET NEEDED, ORALLY, EVERY 6 HRS PRN PAIN MDD=4, 30 DAY(S), 115, REFILLS 0 REFILL METAXALONE TABLET, 800 MG, 1 TABLET, ORALLY, THREE TIMES A DAY NEEDED FOR SPASMS AND PAIN MDD3, 30 DAY(S), 90, REFILLS 2, NOTES: SKELAXIN PROCEDURES PN WORKMANS' COMP OPINION IN YOUR OPINION, WAS THE INCIDENT THAT THE PATIENT DESCRIBED THE COMPETENT MEDICAL CAUSE OF THIS INJURY/ILLNESS? YES ARE THE PATIENT'S COMPLAINTS CONSISTENT WITH HIS/HER HISTORY OF THE INJURY/ILLNESS? YES IS THE PATIENT'S HISTORY OF THE INJURY/ILLNESS CONSISTENT WITH YOUR OBJECTIVE FINDING? YES WHAT IS THE PERCENTAGE OF TEMPORARY IMPAIRMENT? TOTAL = 100% IS THE PATIENT WORKING? NO DOCTOR ON SITE: EVERTON SAPP MD PROCEDURE CODES FA211 ESTABILISHED PATIENT [facility] FACILITY CHARGE G8427 DOC MEDS VERIFIED W/PT OR RE G8730 PAIN ASSESS POS TOOL F/U PLAN DOC DISPOSITION & COMMUNICATION FOLLOW UP 3 WEEKS ELECTRONICALLY SIGNED BY EVERTON SNOW MD ON 11/25/2016 AT 08:11 PM EDT DISCLAIMER : THIS IS A VISIT SUMMARY EXTRACTED FROM THE [employer] CHART. IT IS NOT A COPY OF THE [employer] PROGRESS NOTE. JUAN PABLO
== END ==
LOC: M PAIN 13:40
PROVIDERS: ATTEND Anesthesiology
DX: G89.29 Other chronic pain (principal); M79.602 Pain in left arm; M79.2 Neuralgia and neuritis, unspecified; I10 Essential (primary) hypertension; G47.33 Obstructive sleep apnea (adult) (pediatric); Z72.0 Tobacco use; E66.9 Obesity, unspecified; Z68.42 Body mass index [BMI] 45.0-49.9, adult; K21.9 Gastro-esophageal reflux disease without esophagitis; Z88.6 Allergy status to analgesic agent; Z79.899 Other long term (current) drug therapy

== ENCOUNTER → 2016-12-12 | Outpatient (REF) | payer MEDICARE, OTHER ==
[2016-12-12 18:29] LABS: ALBUMIN/GLOBULIN RATIO 0.98 (1.00-1.93); ALKALINE PHOSPHATASE 95 U/L (45-117); ALT/SGPT 30 U/L (12-78); ANION GAP 6 MEQ/L (8-16); AST/SGOT 14 U/L (15-37); BILIRUBIN,TOTAL 0.2 MG/DL (0.2-1.0); BLOOD UREA NITROGEN 13 MG/DL (7-18); CALCIUM LEVEL 8.4 MG/DL (8.5-10.1); CARBON DIOXIDE LEVEL 34 MEQ/L (21-32); CHLORIDE LEVEL 100 MEQ/L (98-107); CHOLESTEROL LEVEL 246 MG/DL (<200); CREATININE FOR GFR 0.85 MG/DL (0.55-1.02); GLOMERULAR FILTRATION RATE > 60.0 (>51); GLUCOSE, FASTING 74 MG/DL (70-105); POTASSIUM SERUM 4.3 MEQ/L (3.5-5.1); SODIUM LEVEL 140 MEQ/L (136-145); TOTAL PROTEIN 8.1 GM/DL (6.4-8.2); TRIGLYCERIDES LEVEL 213 MG/DL (<150)
[2016-12-12 19:01] LABS: MEAN CORPUSCULAR HEMOGLOBIN 30.2 pg (27.0-33.0); MEAN CORPUSCULAR HGB CONC 33.4 g/dl (32.0-36.5); MEAN CORPUSCULAR VOLUME 90.3 fl (80.0-96.0); RED CELL DISTRIBUTION WIDTH 13.7 % (11.5-14.5)
== END ==
LOC: M SFHCPLAZ 14:23
PROVIDERS: ATTEND Nurse Practitioner Adult Health
DX: Z00.00 Encounter for general adult medical examination without abnormal findings (principal); E78.2 Mixed hyperlipidemia
CPT/HCPCS: 36415; 80053; 80061; 85027; 90732; G0009

== ENCOUNTER → 2016-12-27 | Outpatient (CLI) | payer OTHER, MEDICARE ==
--- NOTE | 2017-01-25 01:31 | ECWPNPC ---
PATIENT NAME: JUNIOR CURTIS : 1965 GENDER: FEMALE VISIT DATE: 12/27/2016 DISCHARGE DATE: 12/27/16 1432 VISIT LOCKED DATE TIME: PHYSICIAN: SHANNAN LOPEZ RESOURCE: SHANNAN LOPEZ REASON FOR APPOINTMENT 1. W/C LEFT ARM HISTORY OF PRESENT ILLNESS FALL RISK SCREENING: SCREENING :NO FALLS IN THE PAST YEAR PAIN SCREENING: PATIENT HAS A COMPLAINT OF ACUTE OR CHRONIC PAIN :YES TODAY'S VISIT: NOTES: WC FOLLOWUP FOR LEFT ARM PAIN. RATES PAIN LEVEL TODAY 7/10. DESCRIBES THE PAIN CONSTANT, ACHING, BURNING, TENDER AND SORE WITH INTERMITTANT INCREASES WHEN SHE ATTEMPTS TO MOVE OR USE THE LEFT ARM. ARM. REPORTS THAT THE PAIN MEDS, PARTICULARLY THE MORPHINE ALLOWS HER TO FUNCTION ABOUT HER HOME. . CURRENT MEDICATIONS TAKING CARBAMAZEPINE ER 200 MG CAPSULE EXTENDED RELEASE 12 HOUR 2 CAPSULE ORALLY TWICE A DAY TAKING METAXALONE 800 MG TABLET 1 TABLET ORALLY THREE TIMES A DAY NEEDED FOR SPASMS AND PAIN MDD3, NOTES: SKELAXIN TAKING CARVEDILOL 6.25MG - DR DAVIDSON TABLET 1 TABLET WITH FOOD ORALLY TWICE A DAY (DR. DAVIDSON) TAKING FUROSEMIDE 80MG - DR DAVIDSON TABLET 2 TABLETS P.O. TWICE A DAY (DR. DAVIDSON) TAKING VITAMIN D3 4000 CAPSULE 1 CAPSULE ORALLY ONCE A DAY TAKING SPIRONOLACTONE 25 MG TABLET 1 TABLET TWICE A DAY (DR. DAVIDSON) ORALLY 30 DAYS TAKING LISINOPRIL 10 MG TABLET 1 TABLET ORALLY ONCE A DAY (DR. DAVIDSON) TAKING MIRALAX . POWDER DIRECTED ORALLY DAILY -17 GRAMS IN 8 OZ FLUID PRN CONSTIPATION - LARGE JAR TAKING SYNTHROID 200 MCG TABLET 1 TABLET ON AN EMPTY STOMACH IN THE MORNING ORALLY ONCE A DAY TAKING CELEXA 40 MG TAB 1 TABLET ONCE A DAY ORALLY 30 TAKING PRAVASTATIN SODIUM 40 MG TABLET 1 TABLET DAILY ORALLY 90 DAY(S) TAKING OMEPRAZOLE 40 MG CAPSULE DELAYED RELEASE 1 CAPSULE ORALLY ONCE A DAY TAKING NUCYNTA ER 100 MG TABLET EXTENDED RELEASE 12 HOUR 1 TABLET ORALLY Q 6 HRS MDD=4 TAKING MORPHINE SULFATE 30 MG TABLET 1 TABLET NEEDED ORALLY EVERY 6 HRS PRN PAIN MDD=4 MEDICATION LIST REVIEWED AND RECONCILED WITH THE PATIENT PAST MEDICAL HISTORY DIASTOLIC CHF, ECHOCARDIOGRAM 6-14. LVEF 75%. [facility] NUCLEAR STRESS TEST 2008 STOPPED WITH SHORTNESS OF BREATH AND FATIGUE. NO CHEST PAIN AND NO EKG CHANGE. NORMAL LV SIZE, MOTION, AND MYOCARDIAL PERFUSION. 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 TOBACCO ABUSE MORBID OBESITY REFLEX SYMPATHETIC DYSTROPHY OF LEFT ARM, 1988, ARM CAUGHT IN A MIXER WHILE AT WORK, AT [employer] OVER THE YEARS PAIN THE PERSISTEDLY GOT WORSE SCOLIOSIS HERNIATED DISC GERD BONE DENSITY 2013 =NORMAL=5 YEAR FOLLOW UP FAMILY HISTORY OF AIRCRA[employer] CANCER UTERINE, MOTHER AND SISTER ALLERGIES NSAIDS: ALLERGY SOCIAL HISTORY GENERAL: TOBACCO USE ARE YOU A:CURRENT SMOKER HOW MANY CIGARETTES A DAY DO YOU SMOKE?6-10 HOW SOON AFTER YOU WAKE UP DO YOU SMOKE YOUR FIRST CIGARETTE?WITHIN 5 MIN HOW OFTEN DO YOU SMOKE CIGARETTES?EVERY DAY PATIENT COUNSELED ON THE DANGERS OF TOBACCO USE AND URGED TO QUIT:12/12/2016 ARE YOU INTERESTED IN QUITTING?NOT READY TO QUIT COUNSELED THE PATIENT ON SMOKING EFFECTS, EDUCATION [id number]/31/2017 LUNG CANCER SCREENING SMOKING STATUS:CURRENT SMOKER BMI CARE GOAL FOLLOW-UP ABOVE NORMAL BMI FOLLOW-UPLIFESTYLE EDUCATION REGARDING DIET ALCOHOL SCREENING DID YOU HAVE A DRINK CONTAINING ALCOHOL IN THE PAST YEAR?NO POINTS0 INTERPRETATIONNEGATIVE RECREATIONAL DRUG USE DENIES. CAFFEINE 1-2/DAY. SEXUAL HX HAD SEX IN THE LAST 12 MONTHS (VAGINAL, ORAL, OR ANAL)?: YES, WITH: MEN ONLY, USE PROTECTION?: NO, HAVE YOU EVER HAD AN STD?: NO, LMP:: 02/26/2010. HIV / HEP-C SCREENING HIV TEST OFFERED TO PATIENT:YES DATE OFFERED:12/12/2016 TEST ACCEPTED:NO REASON:PATIENT DECLINED HEP-C TEST OFFERED TO PATIENT:NO OCCUPATION: DISABLED FROM [employer] 1988. DIET: REGULAR. EXERCISE: NONE. MARITAL STATUS: FOR 38 YRS. PETS: 4 CATS, 2 DOGS, 2 TURTLES, FISH. PENTECOSTAL TAOIST. LANGUAGE KAZAKH. EDUCATION LEVEL OF EDUCATION:HIGH SCHOOL LEARNING BARRIERS / SPECIAL NEEDS CHANGE FROM LAST VISIT?NO BARRIERS TO LEARNING?NO HEARING IMPAIRED?NO VISION IMPAIRED?YES :CORRECTIVE LENSES COGNITIVELY IMPAIRED?NO READINESS TO LEARN?YES LEARNING PREFERENCES?NO LEARNING CAPABILITIES PRESENT?YES EMOTIONAL BARRIERS?NO PAIN CLINIC PFS, CLERGY, PUBLIC HEALTH REFERRALS WAS THE PROVIDER NOTIFIED OF ANY PERTINENT INFO?YES HAS THE PATIENT BEEN EDUCATED REGARDING HIS/HER PLAN OF CARE?YES HAS THE PATIENT BEEN EDUCATED REGARDING PAIN, THE RISK FOR PAIN, THE IMPORTANCE OF EFFECTIVE PAIN MANAGEMENT, AND THE PAIN ASSESSMENT PROCESS?YES PLEASE DOCUMENT ANY ADDTIONAL DETAILS. REVIEW OF DCS VIDEO REVIEWED BY: KELLY. TRAVEL OUTSIDE US: NO. HOUSING: OWNS HOME LIVES WITH . DOMESTIC VIOLENCE NONE. REVIEW OF SYSTEMS REVIEWED BY: PROVIDER: SHANNAN MEDRANO . CONSTITUTIONAL: ANY CHANGE IN YOUR MEDICAL CONDITION? NO . CHILLS NO . FEVER NO . INFECTION: DO YOU HAVE NEW INFECTIONS? NO . DO YOU HAVE HISTORY OF MRSA? NO . MUSCULOSKELETAL: ANY NEW PATTERNS OF PAIN OR NUMBNESS? NO . SYTEMIC LUPUS NO . GASTROENTEROLOGY: ANY NEW CHANGE IN BOWEL CONTROL? NO . BARRETTS ESOPHAGUS NO . CIRRHOSIS NO . HEPATITIS NO . LIVER FAILURE NO . ACID REFLUX NO . UNEXPLAINED WEIGHT LOSS NO . GENITOURINARY: ANY NEW CHANGE IN BLADDER CONTROL? NO . IS THERE A CHANCE YOU COULD BE ? NO . HEMATOLOGY/LYMPH: DO YOU TAKE ANY BLOOD THINNERS? (FOR EXAMPLE- COUMADIN, PLAVIX, AGGRENOX, PLATEL, PRADAXA, OR XARELTO) NO . WHEN WAS YOUR LAST DOSE? DATE: TIME: . LOW PLATELET COUNT NO . SICKLE CELL DISEASE NO . VON WILLIEBRANDS NO . FACTOR V LEIDEN NO . THALLASEMIA NO . ANEMIA NO . EASY BRUISING NO . NEUROLOGY: HAVE YOU FALLEN IN THE PAST 6 MONTHS? NO . ANY NEW EXTREMITY NUMBNESS OR WEAKNESS? NO . HEAD INJURY NO . DEMENTIA NO . CEREBRAL PALSY NO . MULTIPLE SCLEROSIS NO . DIZZINESS NO . HEADACHE NO . STROKES NO . VERTIGO NO . CARDIOLOGY: DO YOU HAVE A PACEMAKER OR DEFIBRILLATOR? NO . ANGINA NO . HEART ATTACK NO . HEART SURGERY NO . CONGESTIVE HEART FAILURE/FLUID OVERLOAD NO . CHEST PAIN NO . HIGH BLOOD PRESSURE NO . IRREGULAR HEART BEAT NO . RESPIRATORY: HAVE YOU BEEN SICK IN THE PAST WEEK? NO . FEVER NO . FLU LIKE SYMPTOMS? NO . CPAP NO . BYPAP NO . ASTHMA NO . EMPHYSEMA NO . CHRONIC LUNG DISEASES NO . SHORTNESS OF BREATH ON EXERTION NO . COUGH NO . SNORING NO . INTEGUMENTARY: DO YOU HAVE ANY RASHES OR OPEN SORES? NO . ALLERGIC/IMMUNO: ARE YOU ALLERGIC TO SHELLFISH OR IV DYE? NO . ANY NEW ALLERGIES? NO . PSYCHIATRIC: DO YOU HAVE THOUGHTS OF HURTING YOURSELF OR SOMEONE ELSE? NO . ARE YOU ABUSED, NEGLECTED, OR IN AN UNSAFE ENVIRONMENT? NO . ENDOCRINOLOGY: ARE YOU DIABETIC? NO . THYROID DISORDER NO . OTHER: DO YOU NEED ANY PRESCRIPTIONS? NO . IF YES, PLEASE LIST: ____ . ANY NEW PROBLEMS WITH YOUR MEDICATIONS? NO . WHEN DID YOU LAST EAT? ____ . WHEN DID YOU LAST DRINK? ____ . WHAT DID YOU LAST DRINK? ____ . NAME OF PERSON DRIVING YOU HOME? ____ . DO YOU HAVE ANY OTHER QUESTIONS OR CONCERNS NO . VITAL SIGNS WT 289 LBS, HT 65 IN, BMI 48.09 INDEX, BP 143/93 MM HG, HR 91 /MIN, RR 18 /MIN, TEMP 97.1 F, OXYGEN SAT % 92%, SAFE IN ENV? (Y/N) Y, NA INITIALS MD 13:33, REVIEWED BY: KELLY. EXAMINATION GENERAL EXAMINATION: GENERAL APPEARANCE:OBESE. HEENT:OICE BREATHY, RASPY. TENDER OVER LEFT ANTERIOR CERVICAL LYMPH CHAIN.. FACE:EDEMA AND TENDERNESS OVER LEFT CHEEK, JAW AND SOFT TISSUES OF THROAT.. LUNGS:CLEAR TO AUSCULTATION BILATERALLY, NO WHEEZES, RALES. OR RHONCHI. HEART:HEART RATE REGULAR, NORMAL S1S2, NO MURMURS, CLICK OR RUBS. MUSCULOSKELETAL:ALLODYNIA TO ANY TOUCH OVER LEFT HAND, FORARM, ELBOW, DETOID. VERY POOR FLEXION/EXTENSION OF FINGERS LEFT HAND. NO OBSERVED SPONTANEOUS MOVEMENT OF LEFT FINGERS OR HAND. TRIGGER POINTS AND TIGHT FIBROUS BANDS NOTED OVER LEFT DELTOID, ANTERIOR CHEST WALL AND OVER LEFT SCAPULA. ASSESSMENTS NEURALGIA - M79.2 (PRIMARY) LEFT ARM PAIN - M79.602 CHRONICALLY ON OPIATE THERAPY - Z79.891 TREATMENT NEURALGIA NOTES: CONTINUE CURRENT MEDS. PT STATES THAT THE MORPHINE IS HELPFUL AT CONTROLLING HER PAIN AND IS WILLING TO COVER THIS EXPENSE HERSELFKEEP DOING EXERCISES TO LEFT ARM AND HAND. CLINICAL NOTES: ISTOP REGISTRY REVIEWED AND DEMNOSTRATES COMPLLIANCE. (REF #[id number])BRINGS IN MEDICATIONS WHICH IS APPROPRIATE FOR WHAT WAS DISPENSED. RECENT URINE TOXICOLOGY REVIEWED. NO UNAUTHORIZED MEDICATIONS. NO ILLICIT SUBSTANCES AND PRESCRIBED MEDICATIONS WERE PRESENT. PROCEDURES PN WORKMANS' COMP OPINION IN YOUR OPINION, WAS THE INCIDENT THAT THE PATIENT DESCRIBED THE COMPETENT MEDICAL CAUSE OF THIS INJURY/ILLNESS? YES ARE THE PATIENT'S COMPLAINTS CONSISTENT WITH HIS/HER HISTORY OF THE INJURY/ILLNESS? YES IS THE PATIENT'S HISTORY OF THE INJURY/ILLNESS CONSISTENT WITH YOUR OBJECTIVE FINDING? YES WHAT IS THE PERCENTAGE OF TEMPORARY IMPAIRMENT? TOTAL = 100% IS THE PATIENT WORKING? NO DOCTOR ON SITE: EVERTON SAPP MD PROCEDURE CODES FA211 ESTABILISHED PATIENT [facility] CHARGE DISPOSITION & COMMUNICATION FOLLOW UP 6 WEEKS (REASON: WC LEFT ARM, HAND) ELECTRONICALLY SIGNED BY GONZALO REID ON 01/24/2017 AT 05:29 PM EDT DISCLAIMER : THIS IS A VISIT SUMMARY EXTRACTED FROM THE [employer] CHART. IT IS NOT A COPY OF THE [employer] PROGRESS NOTE. JUAN PABLO
== END ==
LOC: M PAIN 13:00
PROVIDERS: ATTEND Nurse Practitioner Family
DX: M79.2 Neuralgia and neuritis, unspecified (principal); M79.602 Pain in left arm; K21.9 Gastro-esophageal reflux disease without esophagitis; G47.33 Obstructive sleep apnea (adult) (pediatric); G90.519 Complex regional pain syndrome I of unspecified upper limb; F32.9 Major depressive disorder, single episode, unspecified; I11.0 Hypertensive heart disease with heart failure; I50.30 Unspecified diastolic (congestive) heart failure; E55.9 Vitamin D deficiency, unspecified; E89.0 Postprocedural hypothyroidism; C73 Malignant neoplasm of thyroid gland; F17.210 Nicotine dependence, cigarettes, uncomplicated; Z88.6 Allergy status to analgesic agent; Z79.899 Other long term (current) drug therapy

== ENCOUNTER → 2017-02-07 | Outpatient (CLI) | payer OTHER ==
--- NOTE | 2017-03-10 00:59 | ECWPNPC ---
PATIENT NAME: JUNIOR CURTIS : 1965 GENDER: FEMALE VISIT DATE: 02/07/2017 DISCHARGE DATE: 02/07/17 1338 VISIT LOCKED DATE TIME: PHYSICIAN: SHANNAN LOPEZ RESOURCE: SHANNAN LOPEZ REASON FOR APPOINTMENT 1. LEFT ARM HISTORY OF PRESENT ILLNESS HISTORY OF PRESENT ILLNESS: PAIN THE PATIENT DESCRIBES THE PAIN... FALL RISK SCREENING: SCREENING :NO FALLS IN THE PAST YEAR TODAY'S VISIT: NOTES: WC FOLLOWUP FOR LEFT ARM PAIN. RATES PAIN TODAY 6/10. DID HAVE 2 RECENT FALLS WHICH BANGED UP HER LEFT ARM. HAS BRUISE TO LEFT ELBOW FROM THIS. HAS BEEN EXPERIENCING [facility] PAIN IN THE LEFT FINGER TIPS. NOTES PAIN MEDS ARE KEEPINGHER PAIN MANAGENABLE. DENIES ADVERSE EFFECTS FROM PAIN MEDS. CURRENT MEDICATIONS TAKING CARBAMAZEPINE ER 200 MG CAPSULE EXTENDED RELEASE 12 HOUR 2 CAPSULE ORALLY TWICE A DAY TAKING METAXALONE 800 MG TABLET 1 TABLET ORALLY THREE TIMES A DAY NEEDED FOR SPASMS AND PAIN MDD3, NOTES: SKELAXIN TAKING CARVEDILOL 6.25MG - DR DAVIDSON TABLET 1 TABLET WITH FOOD ORALLY TWICE A DAY (DR. DAVIDSON) TAKING FUROSEMIDE 80MG - DR DAVIDSON TABLET 2 TABLETS P.O. TWICE A DAY (DR. DAVIDSON) TAKING VITAMIN D3 4000 CAPSULE 1 CAPSULE ORALLY ONCE A DAY TAKING SPIRONOLACTONE 25 MG TABLET 1 TABLET TWICE A DAY (DR. DAVIDSON) ORALLY 30 DAYS TAKING LISINOPRIL 10 MG TABLET 1 TABLET ORALLY ONCE A DAY (DR. DAVIDSON) TAKING MIRALAX . POWDER DIRECTED ORALLY DAILY -17 GRAMS IN 8 OZ FLUID PRN CONSTIPATION - LARGE JAR TAKING SYNTHROID 200 MCG TABLET 1 TABLET ON AN EMPTY STOMACH IN THE MORNING ORALLY ONCE A DAY TAKING OMEPRAZOLE 40 MG CAPSULE DELAYED RELEASE 1 CAPSULE ORALLY ONCE A DAY TAKING CELEXA 40 MG TAB 1 TABLET ONCE A DAY ORALLY 30 TAKING OMEPRAZOLE 20 MG CAP 1 CAPSULE ONES A DAY ORALLY 30 TAKING MORPHINE SULFATE 30 MG TABLET 1 TABLET NEEDED ORALLY EVERY 6 HRS PRN PAIN MDD=4 TAKING NUCYNTA ER 100 MG TABLET EXTENDED RELEASE 12 HOUR 1 TABLET ORALLY Q 6 HRS MDD=4 TAKING RANITIDINE HCL 150 MG TABLET TAKE 1 TABLET BY MOUTH ONCE DAILY TAKING PRAVASTATIN SODIUM 40 MG TABLET 1 TABLET DAILY ORALLY 90 DAY(S) MEDICATION LIST REVIEWED AND RECONCILED WITH THE PATIENT PAST MEDICAL HISTORY DIASTOLIC CHF, ECHOCARDIOGRAM 6-14. LVEF 75%. [facility] NUCLEAR STRESS TEST 2008 STOPPED WITH SHORTNESS OF BREATH AND FATIGUE. NO CHEST PAIN AND NO EKG CHANGE. NORMAL LV SIZE, MOTION, AND MYOCARDIAL PERFUSION. 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 TOBACCO ABUSE MORBID OBESITY REFLEX SYMPATHETIC DYSTROPHY OF LEFT ARM, 1988, ARM CAUGHT IN A MIXER WHILE AT WORK, AT [employer] OVER THE YEARS PAIN THE PERSISTEDLY GOT WORSE SCOLIOSIS HERNIATED DISC GERD BONE DENSITY 2013 =NORMAL=3 YEAR FOLLOW UP FAMILY HISTORY OF DIRECTOR EDUCATION CANCER UTERINE, MOTHER AND SISTER ALLERGIES NSAIDS: ALLERGY SOCIAL HISTORY GENERAL: TOBACCO USE ARE YOU A:CURRENT SMOKER HOW MANY CIGARETTES A DAY DO YOU SMOKE?6-10 HOW SOON AFTER YOU WAKE UP DO YOU SMOKE YOUR FIRST CIGARETTE?WITHIN 5 MIN HOW OFTEN DO YOU SMOKE CIGARETTES?EVERY DAY PATIENT COUNSELED ON THE DANGERS OF TOBACCO USE AND URGED TO QUIT:12/12/2016 ARE YOU INTERESTED IN QUITTING?NOT READY TO QUIT COUNSELED THE PATIENT ON SMOKING EFFECTS, EDUCATION [id number]/31/2017 LUNG CANCER SCREENING SMOKING STATUS:CURRENT SMOKER BMI CARE GOAL FOLLOW-UP ABOVE NORMAL BMI FOLLOW-UPLIFESTYLE EDUCATION REGARDING DIET ALCOHOL SCREENING DID YOU HAVE A DRINK CONTAINING ALCOHOL IN THE PAST YEAR?NO POINTS0 INTERPRETATIONNEGATIVE RECREATIONAL DRUG USE DENIES. CAFFEINE 1-2/DAY. SEXUAL HX HAD SEX IN THE LAST 12 MONTHS (VAGINAL, ORAL, OR ANAL)?: YES, WITH: MEN ONLY, USE PROTECTION?: NO, HAVE YOU EVER HAD AN STD?: NO, LMP:: 02/26/2010. HIV / HEP-C SCREENING HIV TEST OFFERED TO PATIENT:YES DATE OFFERED:12/12/2016 TEST ACCEPTED:NO REASON:PATIENT DECLINED HEP-C TEST OFFERED TO PATIENT:NO OCCUPATION: DISABLED FROM [employer] 1988. DIET: REGULAR. EXERCISE: NONE. MARITAL STATUS: FOR 38 YRS. PETS: 4 CATS, 2 DOGS, 2 TURTLES, FISH. JEWISH YARSANISM. LANGUAGE CROATIAN. EDUCATION LEVEL OF EDUCATION:HIGH SCHOOL LEARNING BARRIERS / SPECIAL NEEDS CHANGE FROM LAST VISIT?NO BARRIERS TO LEARNING?NO HEARING IMPAIRED?NO VISION IMPAIRED?YES :CORRECTIVE LENSES COGNITIVELY IMPAIRED?NO READINESS TO LEARN?YES LEARNING PREFERENCES?NO LEARNING CAPABILITIES PRESENT?YES EMOTIONAL BARRIERS?NO PAIN CLINIC PFS, CLERGY, PUBLIC HEALTH REFERRALS WAS THE PROVIDER NOTIFIED OF ANY PERTINENT INFO?YES HAS THE PATIENT BEEN EDUCATED REGARDING HIS/HER PLAN OF CARE?YES HAS THE PATIENT BEEN EDUCATED REGARDING PAIN, THE RISK FOR PAIN, THE IMPORTANCE OF EFFECTIVE PAIN MANAGEMENT, AND THE PAIN ASSESSMENT PROCESS?YES PLEASE DOCUMENT ANY ADDTIONAL DETAILS. REVIEW OF DCS VIDEO REVIEWED BY: KELLY. TRAVEL OUTSIDE US: NO. HOUSING: OWNS HOME LIVES WITH . DOMESTIC VIOLENCE NONE. REVIEW OF SYSTEMS REVIEWED BY: PROVIDER: SHANNAN MEDRANO . CONSTITUTIONAL: ANY CHANGE IN YOUR MEDICAL CONDITION? NO . CHILLS NO . FEVER NO . INFECTION: DO YOU HAVE NEW INFECTIONS? NO . DO YOU HAVE HISTORY OF MRSA? NO . MUSCULOSKELETAL: ANY NEW PATTERNS OF PAIN OR NUMBNESS? NO . GASTROENTEROLOGY: ANY NEW CHANGE IN BOWEL CONTROL? NO . GENITOURINARY: ANY NEW CHANGE IN BLADDER CONTROL? NO . IS THERE A CHANCE YOU COULD BE ? NO . HEMATOLOGY/LYMPH: DO YOU TAKE ANY BLOOD THINNERS? (FOR EXAMPLE- COUMADIN, PLAVIX, AGGRENOX, PLATEL, PRADAXA, OR XARELTO) NO . WHEN WAS YOUR LAST DOSE? DATE: TIME: . NEUROLOGY: HAVE YOU FALLEN IN THE PAST 6 MONTHS? YES, HAS FALLEN TWICE FRIDAY- ROLLED OFF PICNIC TABLE SEAT, THEN FRIDAY FELL AT STORAGE UNIT- WAS UNEVEN WALKING AND FELL ON LEFT SIDE. . ANY NEW EXTREMITY NUMBNESS OR WEAKNESS? NO . CARDIOLOGY: DO YOU HAVE A PACEMAKER OR DEFIBRILLATOR? NO . RESPIRATORY: HAVE YOU BEEN SICK IN THE PAST WEEK? NO . FEVER NO . FLU LIKE SYMPTOMS? NO . COUGH NO . INTEGUMENTARY: DO YOU HAVE ANY RASHES OR OPEN SORES? NO . ALLERGIC/IMMUNO: ARE YOU ALLERGIC TO SHELLFISH OR IV DYE? NO . ANY NEW ALLERGIES? NO . PSYCHIATRIC: DO YOU HAVE THOUGHTS OF HURTING YOURSELF OR SOMEONE ELSE? NO . ARE YOU ABUSED, NEGLECTED, OR IN AN UNSAFE ENVIRONMENT? NO . ENDOCRINOLOGY: ARE YOU DIABETIC? NO . OTHER: DO YOU NEED ANY PRESCRIPTIONS? NO . IF YES, PLEASE LIST: ____ . ANY NEW PROBLEMS WITH YOUR MEDICATIONS? NO . WHEN DID YOU LAST EAT? ____ . WHEN DID YOU LAST DRINK? ____ . WHAT DID YOU LAST DRINK? ____ . NAME OF PERSON DRIVING YOU HOME? ____ . DO YOU HAVE ANY OTHER QUESTIONS OR CONCERNS NO . VITAL SIGNS WT 288.4 LBS, HT 65 IN, BMI 47.99 INDEX, BP 132/84 MM HG, HR 87 /MIN, RR 18 /MIN, TEMP 98.7 F, OXYGEN SAT % 96%, NA INITIALS TL 1302, REVIEWED BY: CM. EXAMINATION GENERAL EXAMINATION: GENERAL APPEARANCE:OBESE. HEENT:OICE BREATHY, RASPY. TENDER OVER LEFT ANTERIOR CERVICAL LYMPH CHAIN.. FACE:EDEMA AND TENDERNESS OVER LEFT CHEEK, JAW AND SOFT TISSUES OF THROAT.. LUNGS:CLEAR TO AUSCULTATION BILATERALLY, NO WHEEZES, RALES. OR RHONCHI. HEART:HEART RATE REGULAR, NORMAL S1S2, NO MURMURS, CLICK OR RUBS. MUSCULOSKELETAL:ALLODYNIA TO ANY TOUCH OVER LEFT HAND, FORARM, ELBOW, DETOID. VERY POOR FLEXION/EXTENSION OF FINGERS LEFT HAND. NO OBSERVED SPONTANEOUS MOVEMENT OF LEFT FINGERS OR HAND. TRIGGER POINTS AND TIGHT FIBROUS BANDS NOTED OVER LEFT DELTOID, ANTERIOR CHEST WALL AND OVER LEFT SCAPULA. ASSESSMENTS NEURALGIA - M79.2 (PRIMARY) LEFT ARM PAIN - M79.602 CHRONICALLY ON OPIATE THERAPY - Z79.891 TREATMENT NEURALGIA REFILL CARBAMAZEPINE ER CAPSULE EXTENDED RELEASE 12 HOUR, 200 MG, 2 CAPSULE, ORALLY, TWICE A DAY, 30 DAY(S), 120, REFILLS 2 REFILL METAXALONE TABLET, 800 MG, 1 TABLET, ORALLY, THREE TIMES A DAY NEEDED FOR SPASMS AND PAIN MDD3, 30 DAY(S), 90, REFILLS 2 REFILL MORPHINE SULFATE TABLET, 30 MG, 1 TABLET NEEDED, ORALLY, EVERY 6 HRS PRN PAIN MDD=4, 30 DAY(S), 115, REFILLS 0 REFILL NUCYNTA ER TABLET EXTENDED RELEASE 12 HOUR, 100 MG, 1 TABLET, ORALLY, Q 6 HRS MDD=4, 30 DAY(S), 120, REFILLS 0 LAB: LIVER PROFILE AST/SGOT 11 (7-37 - U/L) ALT/SGPT 23 (12-78 - U/L) ALK PHOS 83 (45-117 - U/L) BILIRUBIN,TOTAL 0.3 (0.2-1.0 - MG/DL) BILIRUBIN,DIRECT < 0.1 (0.0-0.2 - MG/DL) TOTAL PROTEIN 7.8 (6.4-8.2 - GM/DL) ALBUMIN 3.7 (3.2-5.2 - GM/DL) ALB/GLOB RATIO 0.90 (1.00-1.93 - ) LAB: CARBAMAZEPINE (TEGRETOL) LEVEL CARBAMAZEPINE 8.7 (4.0-10.0 - UG/ML) NOTES: MOIST HEAT, TO SOULDERS, UPPER ARM DO STRETCHES TO UPPER ARM. CONTINUE CURRENT MEDS. CLINICAL NOTES: ISTOP REGISTRY REVIEWED AND DEMNOSTRATES COMPLLIANCE. (REF # [id number]) BRINGS IN MEDICATIONS WHICH IS APPROPRIATE FOR WHAT WAS DISPENSED. RECENT URINE TOXICOLOGY REVIEWED. NO UNAUTHORIZED MEDICATIONS. NO ILLICIT SUBSTANCES AND PRESCRIBED MEDICATIONS WERE PRESENT. , RISKS AND BENEFITS OF NARCOTIC/OPIOD MEDICATIONS WERE REVIEWED WITH PATIENT - THIS INCLUDES BUT IS NOT LIMITED TO RISK OF DEPENDANCE/DEVELOPMENT OF ADDICTION, MOOD DISTURBANCE AND DEPRESSION, OSTEOPOROSIS, HORMONAL AND LABIDAL CHANGES, RESPIRATORY DEPRESSION AND . PATIENT IS ADVISED NOT TO DRIVE WHILE ON THESE MEDICATIONS. PROCEDURES PN WORKMANS' COMP OPINION IN YOUR OPINION, WAS THE INCIDENT THAT THE PATIENT DESCRIBED THE COMPETENT MEDICAL CAUSE OF THIS INJURY/ILLNESS? YES ARE THE PATIENT'S COMPLAINTS CONSISTENT WITH HIS/HER HISTORY OF THE INJURY/ILLNESS? YES IS THE PATIENT'S HISTORY OF THE INJURY/ILLNESS CONSISTENT WITH YOUR OBJECTIVE FINDING? YES WHAT IS THE PERCENTAGE OF TEMPORARY IMPAIRMENT? TOTAL = 100% IS THE PATIENT WORKING? NO DOCTOR ON SITE: [facility] SAPP MD PROCEDURE CODES FA211 ESTABILISHED PATIENT [facility] FACILITY CHARGE DISPOSITION & COMMUNICATION FOLLOW UP BEFORE THANKSGIVING (REASON: WC LEFT ARM PAIN) ELECTRONICALLY SIGNED BY GONZALO REID ON 03/09/2017 AT 09:03 PM EST DISCLAIMER : THIS IS A VISIT SUMMARY EXTRACTED FROM THE [employer] CHART. IT IS NOT A COPY OF THE [employer] PROGRESS NOTE. JUAN PABLO
== END ==
LOC: M PAIN 13:00
PROVIDERS: ATTEND Nurse Practitioner Family
DX: M79.2 Neuralgia and neuritis, unspecified (principal); M79.602 Pain in left arm; I50.30 Unspecified diastolic (congestive) heart failure; I11.0 Hypertensive heart disease with heart failure; K21.9 Gastro-esophageal reflux disease without esophagitis; F17.210 Nicotine dependence, cigarettes, uncomplicated; E89.0 Postprocedural hypothyroidism; Z85.850 Personal history of malignant neoplasm of thyroid; E66.01 Morbid (severe) obesity due to excess calories; Z79.891 Long term (current) use of opiate analgesic; Z79.899 Other long term (current) drug therapy; Z88.8 Allergy status to other drugs, medicaments and biological substances; Z91.81 History of falling

== ENCOUNTER → 2017-02-10 | Outpatient (REF) | payer MEDICARE ==
[2017-02-10 13:37] LABS: FREE T4 0.85 NG/DL (0.76-1.46)
== END ==
LOC: M LABDRAW1 09:40
PROVIDERS: ATTEND Internal Medicine Endocrinology, Diabetes & Metabolism
DX: E89.0 Postprocedural hypothyroidism (principal)

== ENCOUNTER → 2017-02-11 | Outpatient (REF) | payer MEDICARE | LOC: M SFHCWAGY 14:31 | PROVIDERS: ATTEND Nurse Practitioner Women's Health | DX: Z12.4 Encounter for screening for malignant neoplasm of cervix (principal) | CPT/HCPCS: 87624; G0123 ==

== ENCOUNTER → 2017-02-11 | Outpatient (CLI) | payer MEDICARE ==
--- NOTE | 2017-02-11 16:50 | REPMRS ---
Patient History The patient states she had a clinical breast exam in 01/2017. Patient is postmenopausal and has history of thyroid cancer at age 44. Family history of unknown cancer in sister under age 50. Digital Woman Screen Mammo: February 11, 2017 - Exam #: [id number] Bilateral CC and MLO view(s) were taken. Technologist: Laura Tinajero, Technologist Prior study comparison: September 08, 2015, digital woman screen mammo performed at [facility] to [facility]. November 03, 2012, digital woman screen mammo performed at [facility]. FINDINGS: There are scattered fibroglandular densities. There has been no change in the appearance of the mammogram from the prior studies. There is a mild amount of residual fibroglandular tissue which is fairly symmetric. There is no interval development of dominant mass, architectural distortion, or clustered microcalcification suggestive of malignancy. ASSESSMENT: BI-RADS/ACR category 1 mammogram. Negative. Recommendation Routine screening mammogram in 1 year (for women over age 40). This mammogram was interpreted with the aid of an FDA-approved computer-aided dectection system. Electronically Signed By: Leonidas Keene MD 02/11/17 1686
== END ==
LOC: M WHC 14:29
PROVIDERS: ATTEND Nurse Practitioner Adult Health
DX: Z12.31 Encounter for screening mammogram for malignant neoplasm of breast (principal); Z78.0 Asymptomatic menopausal state; Z12.4 Encounter for screening for malignant neoplasm of cervix
CPT/HCPCS: 87624; G0123; G0202; G0463

== ENCOUNTER → 2017-02-18 | Outpatient (REF) | payer MEDICARE ==
[2017-02-18 16:54] LABS: MEAN CORPUSCULAR VOLUME 90.7 fl (80.0-96.0); PLATELET COUNT, AUTOMATED 313 10^3/uL (150-450); RED CELL DISTRIBUTION WIDTH 14.3 % (11.5-14.5); WHITE BLOOD COUNT 13.8 10^3/uL (4.0-10.0)
[2017-02-18 17:18] LABS: ALBUMIN 3.8 GM/DL (3.2-5.2); ALKALINE PHOSPHATASE 81 U/L (45-117); ALT/SGPT 25 U/L (12-78); AMYLASE 38 U/L (25-115); ANION GAP 9 MEQ/L (8-16); AST/SGOT 13 U/L (7-37); BILIRUBIN,TOTAL 0.2 MG/DL (0.2-1.0); BLOOD UREA NITROGEN 16 MG/DL (7-18); CALCIUM LEVEL 8.7 MG/DL (8.5-10.1); CARBON DIOXIDE LEVEL 30 MEQ/L (21-32); CHLORIDE LEVEL 100 MEQ/L (98-107); CREATININE FOR GFR 0.81 MG/DL (0.55-1.02); GLOMERULAR FILTRATION RATE > 60.0 (>51); GLUCOSE, FASTING 78 MG/DL (70-105); POTASSIUM SERUM 4.2 MEQ/L (3.5-5.1); SODIUM LEVEL 139 MEQ/L (136-145); TOTAL PROTEIN 7.6 GM/DL (6.4-8.2)
== END ==
LOC: M SFHCPLAZ 12:48
PROVIDERS: ATTEND Nurse Practitioner Adult Health
DX: R11.0 Nausea (principal); Z23 Encounter for immunization
CPT/HCPCS: 36415; 80053; 82150; 83690; 85027; 90686; G0008; G0463

== ENCOUNTER → 2017-03-05 | Outpatient (CLI) | payer OTHER ==
--- NOTE | 2017-03-17 00:41 | ECWPNPC ---
PATIENT NAME: JUNIOR CURTIS : 1965 GENDER: FEMALE VISIT DATE: 03/05/2017 DISCHARGE DATE: 03/05/17 1334 VISIT LOCKED DATE TIME: PHYSICIAN: SHANNAN LOPEZ RESOURCE: SHANNAN LOPEZ REASON FOR APPOINTMENT 1. W/C ARM HISTORY OF PRESENT ILLNESS TODAY'S VISIT: NOTES: WC FOLLOWUP FOR LEFT ARM PAIN.REPORTS HER PAIN MEDICATIONS KEEP THE PAIN INCERCONTROL BUT CONTINUES TO HAVE LIMITED FUNCTION OF THE LEFT ARM. RATES PAIN TODAY 6-7/10. . CURRENT MEDICATIONS TAKING CARVEDILOL 6.25MG - DR DAVIDSON TABLET 1 TABLET WITH FOOD ORALLY TWICE A DAY (DR. DAVIDSON) TAKING FUROSEMIDE 80MG - DR DAVIDSON TABLET 2 TABLETS P.O. TWICE A DAY (DR. DAVIDSON) TAKING VITAMIN D3 4000 CAPSULE 1 CAPSULE ORALLY ONCE A DAY TAKING SPIRONOLACTONE 25 MG TABLET 1 TABLET TWICE A DAY (DR. DAVIDSON) ORALLY 30 DAYS TAKING LISINOPRIL 10 MG TABLET 1 TABLET ORALLY ONCE A DAY (DR. DAVIDSON) TAKING MIRALAX . POWDER DIRECTED ORALLY DAILY -17 GRAMS IN 8 OZ FLUID PRN CONSTIPATION - LARGE JAR TAKING SYNTHROID 200 MCG TABLET 1 TABLET ON AN EMPTY STOMACH IN THE MORNING ORALLY ONCE A DAY TAKING OMEPRAZOLE 40 MG CAPSULE DELAYED RELEASE 1 CAPSULE ORALLY ONCE A DAY TAKING CELEXA 40 MG TAB 1 TABLET ONCE A DAY ORALLY 30 TAKING OMEPRAZOLE 20 MG CAP 1 CAPSULE ONES A DAY ORALLY 30 TAKING RANITIDINE HCL 150 MG TABLET TAKE 1 TABLET BY MOUTH ONCE DAILY TAKING PRAVASTATIN SODIUM 40 MG TABLET 1 TABLET DAILY ORALLY 90 DAY(S) TAKING CARBAMAZEPINE ER 200 MG CAPSULE EXTENDED RELEASE 12 HOUR 2 CAPSULE ORALLY TWICE A DAY TAKING METAXALONE 800 MG TABLET 1 TABLET ORALLY THREE TIMES A DAY NEEDED FOR SPASMS AND PAIN MDD3 TAKING MORPHINE SULFATE 30 MG TABLET 1 TABLET NEEDED ORALLY EVERY 6 HRS PRN PAIN MDD=4 TAKING NUCYNTA ER 100 MG TABLET EXTENDED RELEASE 12 HOUR 1 TABLET ORALLY Q 6 HRS MDD=4 TAKING ZOFRAN 4 MG TABLET 1 TAB ORALLY TID PRN NAUSEA MEDICATION LIST REVIEWED AND RECONCILED WITH THE PATIENT PAST MEDICAL HISTORY DIASTOLIC CHF, ECHOCARDIOGRAM 6-14. LVEF 75%. [facility] NUCLEAR STRESS TEST 2008 STOPPED WITH SHORTNESS OF BREATH AND FATIGUE. NO CHEST PAIN AND NO EKG CHANGE. NORMAL LV SIZE, MOTION, AND MYOCARDIAL PERFUSION. 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 TOBACCO ABUSE MORBID OBESITY REFLEX SYMPATHETIC DYSTROPHY OF LEFT ARM, 1988, ARM CAUGHT IN A MIXER WHILE AT WORK, AT [employer] COMP CASE OVER THE YEARS PAIN THE PERSISTEDLY GOT WORSE SCOLIOSIS HERNIATED DISC GERD BONE DENSITY 2014 =NORMAL=3 YEAR FOLLOW UP FAMILY HISTORY OF MAIL HANDLER ASSISTANT CANCER UTERINE, MOTHER AND SISTER ALLERGIES NSAIDS: ALLERGY SOCIAL HISTORY GENERAL: TOBACCO USE ARE YOU A:CURRENT SMOKER HOW OFTEN DO YOU SMOKE CIGARETTES?EVERY DAY HOW SOON AFTER YOU WAKE UP DO YOU SMOKE YOUR FIRST CIGARETTE?WITHIN 5 MIN HOW MANY CIGARETTES A DAY DO YOU SMOKE?6-10 ARE YOU INTERESTED IN QUITTING?NOT READY TO QUIT PATIENT COUNSELED ON THE DANGERS OF TOBACCO USE AND URGED TO QUIT:12/12/2016 COUNSELED THE PATIENT ON SMOKING EFFECTS, EDUCATION [id number]/31/2017 LUNG CANCER SCREENING SMOKING STATUS:CURRENT SMOKER BMI CARE GOAL FOLLOW-UP ABOVE NORMAL BMI FOLLOW-UPLIFEYLE EDUCATION REGARDING DIET ALCOHOL SCREENING DID YOU HAVE A DRINK CONTAINING ALCOHOL IN THE PAST YEAR?NO POINTS0 INTERPRETATIONNEGATIVE RECREATIONAL DRUG USE DENIES. CAFFEINE 1-2/DAY. SEXUAL HX HAD SEX IN THE LAST 12 MONTHS (VAGINAL, ORAL, OR ANAL)?YES WITHMEN ONLY LMP:01/2010 HAVE YOU EVER HAD AN STD?NO HIV / HEP-C SCREENING HIV TEST OFFERED TO PATIENT:YES DATE OFFERED:12/12/2016 TEST ACCEPTED:NO HEP-C TEST OFFERED TO PATIENT:NO REASON:PATIENT DECLINED OCCUPATION: DISABLED FROM [employer] 1988. DIET: REGULAR. EXERCISE: NONE. MARITAL STATUS: FOR 38 YRS. OTHERS AT HOME: SPOUSE. PETS: 4 CATS, 2 DOGS, 2 TURTLES, FISH. ORIENTAL ORTHODOX SABIANIST. LANGUAGE MOHAWK. EDUCATION LEVEL OF EDUCATION:HIGH SCHOOL LEARNING BARRIERS / SPECIAL NEEDS CHANGE FROM LAST VISIT?NO BARRIERS TO LEARNING?NO HEARING IMPAIRED?NO VISION IMPAIRED?YES COGNITIVELY IMPAIRED?NO :CORRECTIVE LENSES READINESS TO LEARN?YES LEARNING PREFERENCES?NO LEARNING CAPABILITIES PRESENT?YES EMOTIONAL BARRIERS?NO PAIN CLINIC PFS, CLERGY, PUBLIC HEALTH REFERRALS WAS THE PROVIDER NOTIFIED OF ANY PERTINENT INFO?YES HAS THE PATIENT BEEN EDUCATED REGARDING HIS/HER PLAN OF CARE?YES HAS THE PATIENT BEEN EDUCATED REGARDING PAIN, THE RISK FOR PAIN, THE IMPORTANCE OF EFFECTIVE PAIN MANAGEMENT, AND THE PAIN ASSESSMENT PROCESS?YES PLEASE DOCUMENT ANY ADDTIONAL DETAILS. REVIEW OF DCS VIDEO REVIEWED BY: KELLY. ADVANCE DIRECTIVES HEALTH CARE PROXY?NO WOULD YOU LIKE MORE INFORMATION?YES GAVE HCP INFO TO PT TRAVEL OUTSIDE US: NO. HOUSING: OWNS HOME LIVES WITH . DOMESTIC VIOLENCE NONE. REVIEW OF SYSTEMS FOLLOW-UP ROS: CARDIOLOGY: POSITIVE FOR - TO SAW DR DAVIDSON FOR FOLLOWUP . ENDOCRINOLOGY: THYROID UNDER CONTROL - MEDS TO BE DONE BY PCP . VITAL SIGNS WT 292 LBS, HT 65 IN, BMI 48.59 INDEX, BP 132/71 MM HG, HR 91 /MIN, RR 20 /MIN, TEMP 97.9 F, OXYGEN SAT % 100%, NA INITIALS AW 1254, REVIEWED BY: NL. EXAMINATION GENERAL EXAMINATION: GENERAL APPEARANCE:OBESE. HEENT:VOICE BREATHY, RASPY. . FACE:EDEMA AND TENDERNESS OVER LEFT CHEEK, JAW AND SOFT TISSUES OF THROAT.. LUNGS:CLEAR TO AUSCULTATION BILATERALLY, NO WHEEZES, RALES. OR RHONCHI. HEART:HEART RATE REGULAR, NORMAL S1S2, NO MURMURS, CLICK OR RUBS. MUSCULOSKELETAL:ALLODYNIA TO ANY TOUCH OVER LEFT HAND, FORARM, ELBOW, DELTOID. VERY POOR FLEXION/EXTENSION OF FINGERS LEFT HAND. NO OBSERVED SPONTANEOUS MOVEMENT OF LEFT FINGERS OR HAND. TRIGGER POINTS AND TIGHT FIBROUS BANDS NOTED OVER LEFT DELTOID, ANTERIOR CHEST WALL AND OVER LEFT SCAPULA. ASSESSMENTS NEURALGIA - M79.2 CHRONIC PRESCRIPTION OPIATE USE - Z79.891 LEFT ARM PAIN - M79.602 TREATMENT NEURALGIA REFILL MORPHINE SULFATE TABLET, 30 MG, 1 TABLET NEEDED, ORALLY, EVERY 6 HRS PRN PAIN MDD=4, 30 DAY(S), 115, REFILLS 0 REFILL NUCYNTA ER TABLET EXTENDED RELEASE 12 HOUR, 100 MG, 1 TABLET, ORALLY, Q 6 HRS MDD=4, 30 DAY(S), 120, REFILLS 0 START VALIUM TABLET, 5 MG, 1 TABLET, ORALLY, Q 8 HRS PRN SEVERE SPASM MDD=3, 30 DAY(S), 6, REFILLS 0 CLINICAL NOTES: ISTOP REGISTRY REVIEWED AND DEMNOSTRATES COMPLLIANCE. (REF # [id number]) BRINGS IN MEDICATIONS WHICH IS APPROPRIATE FOR WHAT WAS DISPENSED. RECENT URINE TOXICOLOGY REVIEWED. NO UNAUTHORIZED MEDICATIONS. NO ILLICIT SUBSTANCES AND PRESCRIBED MEDICATIONS WERE PRESENT. , RISKS AND BENEFITS OF NARCOTIC/OPIOD MEDICATIONS WERE REVIEWED WITH PATIENT - THIS INCLUDES BUT IS NOT LIMITED TO RISK OF DEPENDANCE/DEVELOPMENT OF ADDICTION, MOOD DISTURBANCE AND DEPRESSION, OSTEOPOROSIS, HORMONAL AND LABIDAL CHANGES, RESPIRATORY DEPRESSION AND . PATIENT IS ADVISED NOT TO DRIVE WHILE ON THESE MEDICATIONS. OTHERS NOTES: DO LEFT HAND AND ARMS STRETCHES. CONTINUE CURRENT MEDS. PROCEDURE CODES FA211 ESTABILISHED PATIENT [facility] CHARGE DISPOSITION & COMMUNICATION FOLLOW UP 2ND WEEK IN AUGUST (REASON: WC LEFT ARM PAIN) ELECTRONICALLY SIGNED BY GONZALO REID ON 03/15/2017 AT 01:24 PM EST DISCLAIMER : THIS IS A VISIT SUMMARY EXTRACTED FROM THE [employer] CHART. IT IS NOT A COPY OF THE [employer] PROGRESS NOTE. JUAN PABLO
== END ==
LOC: M PAIN 13:00
PROVIDERS: ATTEND Nurse Practitioner Family
DX: G89.29 Other chronic pain (principal); M79.2 Neuralgia and neuritis, unspecified; M79.602 Pain in left arm; K21.9 Gastro-esophageal reflux disease without esophagitis; G47.33 Obstructive sleep apnea (adult) (pediatric); F32.9 Major depressive disorder, single episode, unspecified; I11.9 Hypertensive heart disease without heart failure; I50.30 Unspecified diastolic (congestive) heart failure; E55.9 Vitamin D deficiency, unspecified; E89.0 Postprocedural hypothyroidism; E66.01 Morbid (severe) obesity due to excess calories; Z68.42 Body mass index [BMI] 45.0-49.9, adult; F17.210 Nicotine dependence, cigarettes, uncomplicated; Z88.6 Allergy status to analgesic agent; Z79.891 Long term (current) use of opiate analgesic; Z79.899 Other long term (current) drug therapy

== ENCOUNTER → 2017-07-21 | Outpatient (CLI) | payer OTHER | LOC: M PAIN 13:00 | DX: G90.512 Complex regional pain syndrome I of left upper limb (principal); M79.2 Neuralgia and neuritis, unspecified; I11.9 Hypertensive heart disease without heart failure; E03.9 Hypothyroidism, unspecified; G47.33 Obstructive sleep apnea (adult) (pediatric); F17.210 Nicotine dependence, cigarettes, uncomplicated; M41.9 Scoliosis, unspecified; K21.9 Gastro-esophageal reflux disease without esophagitis; E66.01 Morbid (severe) obesity due to excess calories; Z68.41 Body mass index [BMI] 40.0-44.9, adult; Z79.891 Long term (current) use of opiate analgesic; Z79.899 Other long term (current) drug therapy; Z88.6 Allergy status to analgesic agent; Z85.850 Personal history of malignant neoplasm of thyroid; Z90.89 Acquired absence of other organs; Z92.3 Personal history of irradiation | CPT/HCPCS: G0463 ==

== ENCOUNTER → 2017-08-27 | Outpatient (CLI) | payer MEDICARE ==
[~2017-08-27] MED LIST changes: -/CARB20TAB OR; -/CARBXR20T OR; -/RANI15TA PO; -ALDA25TA2 OR; -CALC500T49 OR; -CALCITROL OR; -CARI350T; -CARV6.25 OR; -CELE40TA PO; -CLON-412 PO; -COL; -COLA100C2 OR; -CRES5TAB; -CYCL10TA PO; -DYAZ37.5; -FURO80TA2 OR; -GABA600T3; -LEVO200T OR; -LEVO200T4 PO; -LISI10TA4 OR; -MERIDIA; +METHACHOLINE KIT (J7674) INH; -MIRA3350 PO; -MIRALEX PO; -MORP15TA PO; -MORP30TASA PO; -NUCY100T11 PO; -NUCYNTA PO; -OMEP20TA7 OR; -OXYC10TA12 OR; -OXYC15TA76 PO; -OXYC1TAB16 PO; -OXYC5CAP2 PO; -PERC5TAB8 OR; -PERC7.5T8 OR; -PRAV10TA2 OR; -PRAV10TA4 OR; -SKEL800T5; -SKEL800T5 OR; -SKEL800T97 PO; -SOMA350T; -SPIR25TA2 OR; -SPIR25TA2 PO; -TIZA4TAB OR; -TUMS500C OR; -VICODINES TAB; -ZOLO50TA PO; -[UNRECOGNIZED DRUG - OTHER] PO; -nucynta PO
== END ==
LOC: M CARPUL 11:10
DX: R05 Cough (principal)
CPT/HCPCS: 94010

== ENCOUNTER → 2017-09-04 | Outpatient (CLI) | payer MEDICARE | LOC: M CARPUL 07:35 | DX: R05 Cough (principal) | CPT/HCPCS: J7674 ==

== ENCOUNTER → 2017-09-17 | Outpatient (CLI) | payer OTHER | LOC: M PAIN 13:00 | DX: G90.512 Complex regional pain syndrome I of left upper limb (principal); M79.2 Neuralgia and neuritis, unspecified; I10 Essential (primary) hypertension; E03.9 Hypothyroidism, unspecified; G47.33 Obstructive sleep apnea (adult) (pediatric); F17.210 Nicotine dependence, cigarettes, uncomplicated; E66.01 Morbid (severe) obesity due to excess calories; K21.9 Gastro-esophageal reflux disease without esophagitis; Z79.891 Long term (current) use of opiate analgesic; Z79.899 Other long term (current) drug therapy | CPT/HCPCS: G0463 ==

== ENCOUNTER → 2017-10-03 | Outpatient (CLI) | payer OTHER | LOC: M PAIN 09:45 | DX: G90.512 Complex regional pain syndrome I of left upper limb (principal); M79.2 Neuralgia and neuritis, unspecified; I11.0 Hypertensive heart disease with heart failure; I50.9 Heart failure, unspecified; F32.9 Major depressive disorder, single episode, unspecified; K21.9 Gastro-esophageal reflux disease without esophagitis; E89.0 Postprocedural hypothyroidism; F17.210 Nicotine dependence, cigarettes, uncomplicated; Z79.891 Long term (current) use of opiate analgesic; Z79.899 Other long term (current) drug therapy; Z88.8 Allergy status to other drugs, medicaments and biological substances | CPT/HCPCS: G0463 ==

== ENCOUNTER → 2017-10-06 | Outpatient (REF) | payer MEDICARE ==
[2017-10-06 16:32] LABS: THYROID STIMULATING HORMONE 0.054 uIU/ML (0.358-3.740)
== END ==
LOC: M LABDRAW1 13:01
DX: C73 Malignant neoplasm of thyroid gland (principal)
CPT/HCPCS: 84443

== ENCOUNTER → 2017-10-28 | Outpatient (REF) | payer MEDICARE ==
[2017-10-28 11:58] LABS: BASO # 0.1 10^3/uL (0.0-0.2); BASO % 0.5 % (0.0-1.0); EOS # 0.3 10^3/uL (0.0-0.50); EOS % 3.4 % (0.0-3.0); HEMATOCRIT 45.8 % (36.0-47.0); IMMATURE GRANULOCYTE % 0.8 % (0-3.0); LYMPH # 2.4 10^3/uL (1.5-4.5); LYMPH % 25.6 % (24.0-44.0); MEAN CORPUSCULAR HEMOGLOBIN 29.4 pg (27.0-33.0); MEAN CORPUSCULAR HGB CONC 32.8 g/dl (32.0-36.5); MEAN CORPUSCULAR VOLUME 89.8 fl (80.0-96.0); MONO # 0.7 10^3/uL (0.0-0.8); MONO % 7.5 % (0.0-5.0); NEUTROPHILS # 5.8 10^3/uL (1.8-7.7); NEUTROPHILS % 62.2 % (36.0-66.0); PLATELET COUNT, AUTOMATED 355 10^3/uL (150-450); RED CELL DISTRIBUTION WIDTH 14.4 % (11.5-14.5); WHITE BLOOD COUNT 9.3 10^3/uL (4.0-10.0)
[2017-10-28 12:16] LABS: ERYTHROCYTE SEDIMENTATION RATE 5 mm/hr (0-30)
[2017-10-28 12:46] LABS: ALBUMIN 3.8 GM/DL (3.2-5.2); ALKALINE PHOSPHATASE 89 U/L (45-117); ALT/SGPT 28 U/L (12-78); ANION GAP 6 MEQ/L (8-16); AST/SGOT 11 U/L (7-37); BILIRUBIN,TOTAL 0.2 MG/DL (0.2-1.0); BLOOD UREA NITROGEN 20 MG/DL (7-18); CALCIUM LEVEL 8.3 MG/DL (8.5-10.1); CARBON DIOXIDE LEVEL 33 MEQ/L (21-32); CHLORIDE LEVEL 101 MEQ/L (98-107); CREATININE FOR GFR 0.83 MG/DL (0.55-1.30); GLOMERULAR FILTRATION RATE > 60.0 (>51); GLUCOSE, FASTING 86 MG/DL (70-100); POTASSIUM SERUM 4.1 MEQ/L (3.5-5.1); RHEUMATOID FACTOR QUANT < 10.0 IU/ML (<15.0); SODIUM LEVEL 140 MEQ/L (136-145); THYROID STIMULATING HORMONE 0.078 uIU/ML (0.358-3.740)
[2017-10-28 12:59] LABS: TOTAL 25(OH) VITAMIN D 24.6 NG/ML (30.0-100.0)
[2017-10-29 17:28] LABS: ANTINUCLEAR ANTIBODIES DIRECT Negative (Negative)
== END ==
LOC: M LAB REF 11:48
DX: R55 Syncope and collapse (principal)
CPT/HCPCS: 84443

== ENCOUNTER → 2017-12-09 | Outpatient (CLI) | payer OTHER | LOC: M PAIN 09:45 | DX: G90.512 Complex regional pain syndrome I of left upper limb (principal); M79.2 Neuralgia and neuritis, unspecified; I50.30 Unspecified diastolic (congestive) heart failure; I11.0 Hypertensive heart disease with heart failure; C73 Malignant neoplasm of thyroid gland; G47.33 Obstructive sleep apnea (adult) (pediatric); E89.0 Postprocedural hypothyroidism; K21.9 Gastro-esophageal reflux disease without esophagitis; F17.210 Nicotine dependence, cigarettes, uncomplicated; Z79.891 Long term (current) use of opiate analgesic; Z79.899 Other long term (current) drug therapy; Z88.6 Allergy status to analgesic agent | CPT/HCPCS: G0463 ==

== ENCOUNTER → 2017-12-17 | Outpatient (REF) | payer MEDICARE, OTHER ==
[2017-12-17 16:05] LABS: ALBUMIN 4.2 GM/DL (3.2-5.2); ALKALINE PHOSPHATASE 82 U/L (45-117); ALT/SGPT 27 U/L (12-78); ANION GAP 10 MEQ/L (8-16); AST/SGOT 13 U/L (7-37); BILIRUBIN,TOTAL 0.3 MG/DL (0.2-1.0); BLOOD UREA NITROGEN 11 MG/DL (7-18); CALCIUM LEVEL 9.1 MG/DL (8.5-10.1); CARBON DIOXIDE LEVEL 29 MEQ/L (21-32); CHLORIDE LEVEL 103 MEQ/L (98-107); CHOLESTEROL LEVEL 253 MG/DL (<200); CREATININE FOR GFR 0.78 MG/DL (0.55-1.30); GLOMERULAR FILTRATION RATE > 60.0 (>51); GLUCOSE, FASTING 93 MG/DL (70-100); HDL CHOLESTEROL 51 MG/DL (>40); LDL CHOLESTEROL 149.2 MG/DL (<100); NON-HDL-C 202 MG/DL; SODIUM LEVEL 142 MEQ/L (136-145); THYROID STIMULATING HORMONE 0.027 uIU/ML (0.358-3.740); TOTAL 25(OH) VITAMIN D 27.4 NG/ML (30.0-100.0); TOTAL PROTEIN 8.4 GM/DL (6.4-8.2); TRIGLYCERIDES LEVEL 264 MG/DL (<150)
== END ==
LOC: M SFHCPLAZ 14:25
DX: G90.512 Complex regional pain syndrome I of left upper limb (principal); E78.2 Mixed hyperlipidemia; Z68.42 Body mass index [BMI] 45.0-49.9, adult; F17.210 Nicotine dependence, cigarettes, uncomplicated
CPT/HCPCS: 84443

== ENCOUNTER → 2018-01-23 | Outpatient (CLI) | payer OTHER | LOC: M PAIN 09:30 | DX: G90.512 Complex regional pain syndrome I of left upper limb (principal); M79.2 Neuralgia and neuritis, unspecified; I11.0 Hypertensive heart disease with heart failure; I50.9 Heart failure, unspecified; E89.0 Postprocedural hypothyroidism; G47.33 Obstructive sleep apnea (adult) (pediatric); K21.9 Gastro-esophageal reflux disease without esophagitis; F17.210 Nicotine dependence, cigarettes, uncomplicated; E66.01 Morbid (severe) obesity due to excess calories; Z68.42 Body mass index [BMI] 45.0-49.9, adult; Z79.891 Long term (current) use of opiate analgesic; Z79.899 Other long term (current) drug therapy; Z88.6 Allergy status to analgesic agent | CPT/HCPCS: G0463 ==

== ENCOUNTER → 2018-01-30 | Outpatient (CLI) | payer MEDICARE | LOC: M PLARAD 08:11 | DX: R55 Syncope and collapse (principal); R42 Dizziness and giddiness; Z53.9 Procedure and treatment not carried out, unspecified reason ==

== ENCOUNTER → 2018-03-20 | Outpatient (CLI) | payer MEDICARE | LOC: M WHC 09:22 | DX: Z12.31 Encounter for screening mammogram for malignant neoplasm of breast (principal); Z78.0 Asymptomatic menopausal state; Z85.850 Personal history of malignant neoplasm of thyroid | CPT/HCPCS: 77067 ==

== ENCOUNTER → 2018-04-24 | Outpatient (CLI) | payer OTHER ==
[~2018-04-24] MED LIST changes: +/CARB20TAB OR; +/CARBXR20T OR; +/RANI15TA PO; +ALDA25TA2 OR; +CALC500T49 OR; +CALCITROL OR; +CARI350T; +CARV6.25 OR; +CELE40TA PO; +CLON-412 PO; +COL; +COLA100C2 OR; +CRES5TAB; +CYCL10TA PO; +DYAZ37.5; +FURO80TA2 OR; +GABA600T3; +LEVO200T OR; +LEVO200T4 PO; +LISI10TA4 OR; +MERIDIA; -METHACHOLINE KIT (J7674) INH; +MIRA3350 PO; +MIRALEX PO; +MORP15TA PO; +MORP30TASA PO; +NUCY100T11 PO; +NUCYNTA PO; +OMEP20TA7 OR; +OXYC10TA12 OR; +OXYC10TA3 PO; +OXYC15TA76 PO; +OXYC5CAP2 PO; +PERC5TAB8 OR; +PERC7.5T8 OR; +PRAV10TA2 OR; +PRAV10TA4 OR; +SKEL800T5; +SKEL800T5 OR; +SKEL800T97 PO; +SOMA350T; +SPIR-10 PO; +SPIR25TA2 OR; +TIZA4TAB OR; +TUMS500C OR; +VICODINES TAB; +ZOLO50TA PO; +[UNRECOGNIZED DRUG - OTHER] PO; +nucynta PO
--- NOTE | 2018-05-13 01:13 | ECWPNPC ---
PATIENT NAME: JUNIOR CURTIS : 1965 GENDER: FEMALE VISIT DATE: 04/24/2018 DISCHARGE DATE: 04/24/18 1134 VISIT LOCKED DATE TIME: PHYSICIAN: EVERTON SNOW MD RESOURCE: EVERTON SNOW MD REASON FOR APPOINTMENT 1. WC LEFT ARM HISTORY OF PRESENT ILLNESS HISTORY OF PRESENT ILLNESS: PAIN THE PATIENT DESCRIBES THE PAIN... 52 YEAR OLD FEMALE PATIENT WITH A HISTORY OF CHRONIC LEFT ARM PAIN. THE PATIENT DESCRIBES THE PAIN ACHING, SORE, TENDER, SHOOTING, AND CONTINUOUS WITH A PAIN SCORE OF 3-8/10 DEPENDING ON PHYSICAL ACTIVITY. THE PATIENT WAS HURT IN A WORK RELATED INJURY IN 1988 WHILE WORKING FOR [employer]. THE PATIENT IS CURRENTLY USING NUCYNTA, METAXALONE, AND CARBAMAZEPINE TO AID IN PAIN RELIEF. THE PATIENT REPORTS THAT THE USE OF THESE MEDICATIONS HELP HER REMAIN MOBILE AND FUNCTIONAL. PATIENT DENIES UNEXPLAINABLE WEIGHT LOSS, FEVER, CHILLS, NEW CHANGES ON HER URINARY OR BOWEL CONTROL. FALL RISK SCREENING: SCREENING :NO FALLS IN THE PAST YEAR CURRENT MEDICATIONS TAKING SYNTHROID 150 MCG TABLET 1 TABLET ON AN EMPTY STOMACH IN THE MORNING ORALLY ONCE A DAY TAKING CARVEDILOL 6.25 MG TABLET 1 TABLET WITH FOOD ORALLY TWICE A DAY TAKING FUROSEMIDE 80 MG TABLET 2 TABLETS ORALLY TWICE A DAY TAKING SPIRONOLACTONE 25 MG TABLET 1 TAB ORALLY TWICE A DAY TAKING MAY USE CBD OILS SUBLINGUALLY BID PRN TAKING ALBUTEROL SULFATE 1.25 MG/3ML NEBULIZATION SOLUTION 3 ML NEEDED INHALATION Q 8 HR PRN COUGH, NOTES: HASN'T STARTED YET TAKING CHANTIX 1 TAB ORAL TAKING MIRALAX . POWDER DIRECTED ORALLY DAILY -17 GRAMS IN 8 OZ FLUID PRN CONSTIPATION - LARGE JAR, NOTES: PAIN CLINIC TAKING FLONASE 50 MCG/ACT SUSPENSION 1 SPRAY IN EACH NOSTRIL NASALLY ONCE A DAY TAKING PANTOPRAZOLE SODIUM 40 MG TABLET DELAYED RELEASE 1 TABLET ORALLY ONCE A DAY TAKING CELEXA 40 MG TAB 1 TABLET ONCE A DAY ORALLY 30 ORALLY ONCE DAILY TAKING LISINOPRIL 10 MG TABLET 1 TABLET ORALLY ONCE A DAY TAKING PRAVASTATIN SODIUM 40 MG TABLET TAKE 1 TABLET BY MOUTH ONCE DAILY ORALLY ONCE DAILY TAKING CARBAMAZEPINE ER 200 MG CAPSULE EXTENDED RELEASE 12 HOUR 2 CAPSULE ORALLY TWICE A DAY, NOTES: WORKERS COMP TAKING METAXALONE 800 MG TABLET 1 TABLET ORALLY TWICE DAILY, NOTES: WORKERS COMP TAKING NUCYNTA 75 MG TABLET 1 TABLET ORALLY Q8H PRN MDD3, NOTES: WORKERS COMP TAKING VITAMIN D3 ADULT GUMMIES 1000 UNIT TABLET CHEWABLE 1 TABLET ORALLY ONCE A DAY NOT-TAKING DRISDOL 60039 UNIT CAPSULE 1 CAPSULE ORALLY ONCE WEEKLY NOT-TAKING SYMBICORT 160-4.5 MCG/ACT AEROSOL 2 PUFFS INHALATION TWICE A DAY, NOTES: HASN'T STARTED NOT-TAKING NUCYNTA ER 100 MG TABLET EXTENDED RELEASE 12 HOUR 1 TABLET ORALLY Q 8 HRS MDD==3, NOTES: DUPLICATE MEDICATION LIST REVIEWED AND RECONCILED WITH THE PATIENT PAST MEDICAL HISTORY 09/13/13 ECHOCARDIOGRAM DIASTOLIC CHF, LVEF 75%. [facility] 2009 NUCLEAR STRESS TEST STOPPED WITH SHORTNESS OF BREATH AND FATIGUE. NO CHEST PAIN AND NO EKG CHANGE. NORMAL LV SIZE, MOTION, AND MYOCARDIAL PERFUSION. 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 TOBACCO ABUSE MORBID OBESITY REFLEX SYMPATHETIC DYSTROPHY OF LEFT ARM, 1988, ARM CAUGHT IN A MIXER WHILE AT WORK, AT [employer] COMP CASE OVER THE YEARS PAIN THE PERSISTEDLY GOT WORSE SCOLIOSIS HERNIATED DISC GERD BONE DENSITY 2013 =NORMAL=5 YEAR FOLLOW UP FAMILY HISTORY OF TAB CARD PRESS OPERATOR CANCER UTERINE, MOTHER AND SISTER POSTPROCEDURAL HYPOTHYROIDISM, DISMISSED BY DR. PONCE 02/12/2017 TO FOLLOW WITH PRIMARY CARE PROVIDER 08/26/17 REFUSED COLONOSCOPY12/17/17 AGREES TO COLONOSCOPY 09/04/2017, PULMONARY FUNCTION TESTS, POSITIVE METHACHOLINE CHALLENGE 10/06/2017 HOLTER MONITOR 48 HOURS WITHIN NORMAL LIMITS 12/17/2017, FAMILY HISTORY OF PRECANCEROUS COLON POLYPS, YOUNGER BROTHER ASTHMA ALLERGIES NSAIDS: ALLERGY SURGICAL HISTORY X3 RT KNEE REPAIR 1999 CARPAL TUNNEL REPAIR ON LEFT [address] MARCELINO HOARSENESS DUE TO LARYNGEAL INJURY 01/24/[address] HOFFMAN IN [place] AT [facility] 08/26/10 SUBUNGUAL EXOSTOSIS RIGHT FOOT, TOTAL NAIL AVULSION RIGHT HALLUX 09/04/16 FAMILY HISTORY FATHER: , ALCHOLIC AND DIABETEC MOTHER: , AGE 34 YRS PT WAS AGE 2 CANCER FOUND WITH HYSTERECTOMY, UTERINE PATERNAL UNCLE: , DIAGNOSED WITH CANCER 1 BROTHER PASSED [employer], CHF, DM23 OTHER BROTHERS, 2 HAVE SLEEP APNEA (BROTHER FARZANA DOES NOT GO TO [employer]CTORS 57) 1 SISTER ALIVE SLEEP APNEA DM2, GALLBLADDER JUST REMOVED, [place] AGE 20 POSSIBLE GYN1 DAUGHTER IN [place] 2 SONS IN [place]. SOCIAL HISTORY GENERAL: TOBACCO USE ARE YOU A:CURRENT SMOKER ARE YOU INTERESTED IN QUITTING?THINKING ABOUT QUITTING COUNSELED THE PATIENT ON SMOKING CESSATION, EDUCATION [id number]/11/2019 HOW MANY CIGARETTES A DAY DO YOU SMOKE?6-10 HOW SOON AFTER YOU WAKE UP DO YOU SMOKE YOUR FIRST CIGARETTE?WITHIN 5 MIN HOW OFTEN DO YOU SMOKE CIGARETTES?EVERY DAY PATIENT COUNSELED ON THE DANGERS OF TOBACCO USE AND URGED TO QUIT:04/24/2018 SMOKING CESSATION INFORMATION GIVEN12/09/2017 LUNG CANCER SCREENING SMOKING STATUS:CURRENT SMOKER BMI CARE GOAL FOLLOW-UP ABOVE NORMAL BMI FOLLOW-UPLIFESTYLE EDUCATION REGARDING DIET ALCOHOL SCREENING DID YOU HAVE A DRINK CONTAINING ALCOHOL IN THE PAST YEAR?NO POINTS0 INTERPRETATIONNEGATIVE RECREATIONAL DRUG USE DENIES. CAFFEINE 1-2/DAY. SEXUAL HX HAD SEX IN THE LAST 12 MONTHS (VAGINAL, ORAL, OR ANAL)?YES WITHMEN ONLY LMP:01/2010 HAVE YOU EVER HAD AN STD?NO HIV / HEP-C SCREENING HIV TEST OFFERED TO PATIENT:YES DATE OFFERED:12/12/2016 TEST ACCEPTED:NO HEP-C TEST OFFERED TO PATIENT:NO REASON:PATIENT DECLINED TAOIST CAODAISM. LANGUAGE SYRIAC. EDUCATION LEVEL OF EDUCATION:HIGH SCHOOL LEARNING BARRIERS / SPECIAL NEEDS CHANGE FROM LAST VISIT?NO BARRIERS TO LEARNING?NO HEARING IMPAIRED?NO VISION IMPAIRED?YES COGNITIVELY IMPAIRED?NO :CORRECTIVE LENSES READINESS TO LEARN?YES LEARNING PREFERENCES?NO LEARNING CAPABILITIES PRESENT?YES EMOTIONAL BARRIERS?NO DOMESTIC VIOLENCE NONE. OCCUPATION: DISABLED FROM [employer] 1988. DIET: REGULAR. EXERCISE: NONE. MARITAL STATUS: 1981 . OTHERS AT HOME: SPOUSE. PAIN CLINIC PFS, CLERGY, PUBLIC HEALTH REFERRALS WAS THE PROVIDER NOTIFIED OF ANY PERTINENT INFO?YES HAS THE PATIENT BEEN EDUCATED REGARDING HIS/HER PLAN OF CARE?YES HAS THE PATIENT BEEN EDUCATED REGARDING PAIN, THE RISK FOR PAIN, THE IMPORTANCE OF EFFECTIVE PAIN MANAGEMENT, AND THE PAIN ASSESSMENT PROCESS?YES PLEASE DOCUMENT ANY ADDTIONAL DETAILS. REVIEW OF [employer] VIDEO HOUSING: OWNS HOME LIVES WITH . ADVANCE DIRECTIVE ADVANCE DIRECTIVE DISCUSSED WITH PATIENT:YES HCP INFORMATION GIVEN TO PATIENT, REFUSED ASSISTANCE WITH FILLINT IT OUT. REVIEWED WITH PATIENT 01/23/18 [id number] JSREVEIWED WITH PATIENT 04/24/18 1004 JS. HOSPITALIZATION/MAJOR DIAGNOSTIC PROCEDURE C SECTION X 3 KNEE SURGERY 2000 THYROID SURGERY REVIEW OF SYSTEMS REVIEWED BY: PROVIDER: EVERTON SNOW MD . CONSTITUTIONAL: ANY CHANGE IN YOUR MEDICAL CONDITION? NO . CHILLS NO . FEVER NO . INFECTION: DO YOU HAVE NEW INFECTIONS? NO . DO YOU HAVE HISTORY OF MRSA? NO . MUSCULOSKELETAL: ANY NEW PATTERNS OF PAIN OR NUMBNESS? NO . GASTROENTEROLOGY: ANY NEW CHANGE IN BOWEL CONTROL? NO . GENITOURINARY: ANY NEW CHANGE IN BLADDER CONTROL? NO . IS THERE A CHANCE YOU COULD BE ? NO . HEMATOLOGY/LYMPH: DO YOU TAKE ANY BLOOD THINNERS? (FOR EXAMPLE- COUMADIN, PLAVIX, AGGRENOX, PLATEL, PRADAXA, OR XARELTO) NO . WHEN WAS YOUR LAST DOSE? DATE: TIME: . NEUROLOGY: HAVE YOU FALLEN IN THE PAST 12 MONTHS? NO . ANY NEW EXTREMITY NUMBNESS OR WEAKNESS? NO . CARDIOLOGY: DO YOU HAVE A PACEMAKER OR DEFIBRILLATOR? NO . RESPIRATORY: HAVE YOU BEEN SICK IN THE PAST WEEK? NO . FEVER NO . FLU LIKE SYMPTOMS? NO . COUGH NO . INTEGUMENTARY: DO YOU HAVE ANY RASHES OR OPEN SORES? NO . ALLERGIC/IMMUNO: ARE YOU ALLERGIC TO IV DYE? NO . ANY NEW ALLERGIES? NO . PSYCHIATRIC: DO YOU HAVE THOUGHTS OF HURTING YOURSELF OR SOMEONE ELSE? NO . ARE YOU ABUSED, NEGLECTED, OR IN AN UNSAFE ENVIRONMENT? NO . ENDOCRINOLOGY: ARE YOU DIABETIC? NO . OTHER: DO YOU NEED ANY PRESCRIPTIONS? NO . IF YES, PLEASE LIST: ____ . ANY NEW PROBLEMS WITH YOUR MEDICATIONS? NO . WHEN DID YOU LAST EAT? ____ . WHEN DID YOU LAST DRINK? ____ . WHAT DID YOU LAST DRINK? ____ . NAME OF PERSON DRIVING YOU HOME? ____ . DO YOU HAVE ANY OTHER QUESTIONS OR CONCERNS NO . VITAL SIGNS WT 306.4 LBS, HT 65 IN, BMI 50.98 INDEX, BP 159/90 MM HG, HR 89 /MIN, RR 18 /MIN, TEMP 95.6 F, OXYGEN SAT % 92%, SAFE IN ENV? (Y/N) YES, NA INITIALS SC 10:02, REVIEWED BY: PRAVIN. EXAMINATION GENERAL EXAMINATION: PATIENT IS ALERT O X 3 AND COOPERATIVE. TENDERNESS OVER THE LEFT ARM. ASSESSMENTS NEURALGIA OF LEFT UPPER EXTREMITY - M79.2 (PRIMARY) LEFT ARM PAIN - M79.602 TREATMENT NEURALGIA OF LEFT UPPER EXTREMITY CLINICAL NOTES: WE DISCUSSED SEVERAL ISSUES WITH MRS. CURTIS''S PAIN MANAGEMENT CASE. THE PATIENT WILL CONTINUE WITH THE SAME MEDICATION REGIMENT. ISTOP _[id number] WAS REVIEWED. URINE TOXICOLOGY DONE ON 10/03/2017 SHOWS CONCURRENT RESULTS AND WE WILL REPEAT THE URINE TOXICOLOGY TODAY. THE PATIENT BROUGHT HER MEDICATION WITH HER TO TODAY''S VISIT IN THEIR ORIGINAL BOTTLES. WE WILL PERFORM A PILL COUNTING TODAY. THE PATIENT WILL FOLLOW UP IN 3 MONTHS. INSTRUCTIONS WERE GIVEN, QUESTIONS WERE ANSWERED, PATIENT REPORTS UNDERSTANDING AND AGREES WITH THE PLAN. I, YOU LEROY, DOCUMENTED THE ABOVE INFORMATION ACTING A SCRIBE FOR DR. SNOW. I HAVE REVIEWED THE ABOVE DOCUMENT, WRITTEN BY YOU NOVOAIBNegra AND I VERIFY THAT IT IS ACCURATE. OTHERS CONTINUE METAXALONE TABLET, 800 MG, 1 TABLET, ORALLY FOR SPASMS, TWICE DAILY, 30 DAY(S), 60, REFILLS 1, NOTES: WORKERS COMP PROCEDURES PN WORKMANS' COMP OPINION IN YOUR OPINION, WAS THE INCIDENT THAT THE PATIENT DESCRIBED THE COMPETENT MEDICAL CAUSE OF THIS INJURY/ILLNESS? YES ARE THE PATIENT'S COMPLAINTS CONSISTENT WITH HIS/HER HISTORY OF THE INJURY/ILLNESS? YES IS THE PATIENT'S HISTORY OF THE INJURY/ILLNESS CONSISTENT WITH YOUR OBJECTIVE FINDING? YES WHAT IS THE PERCENTAGE OF TEMPORARY IMPAIRMENT? TOTAL = 100% IS THE PATIENT WORKING? NO DOCTOR ON SITE: EVERTON SAPP MD PROCEDURE CODES FA211 ESTABILISHED PATIENT [facility] FACILITY CHARGE G8427 CURRENT MEDS W/DOSAGES DOCUMENTED G8730 PAIN ASSESS POS TOOL F/U PLAN DOC DISPOSITION & COMMUNICATION FOLLOW UP 3 MONTHS (REASON: W/C LEFT ARM) ELECTRONICALLY SIGNED BY EVERTON SNOW MD, MD ON 05/12/2018 AT 12:27 PM EST DISCLAIMER : THIS IS A VISIT SUMMARY EXTRACTED FROM THE [employer] CHART. IT IS NOT A COPY OF THE [employer] PROGRESS NOTE. MTDD
== END ==
LOC: M PAIN 09:45
PROVIDERS: ATTEND Anesthesiology
DX: M79.2 Neuralgia and neuritis, unspecified (principal); M79.602 Pain in left arm; G89.29 Other chronic pain; I50.9 Heart failure, unspecified; I11.0 Hypertensive heart disease with heart failure; E89.0 Postprocedural hypothyroidism; G47.33 Obstructive sleep apnea (adult) (pediatric); K21.9 Gastro-esophageal reflux disease without esophagitis; F17.210 Nicotine dependence, cigarettes, uncomplicated; E66.01 Morbid (severe) obesity due to excess calories; Z68.43 Body mass index [BMI] 50.0-59.9, adult; Z79.899 Other long term (current) drug therapy; Z88.6 Allergy status to analgesic agent

== ENCOUNTER → 2018-06-08 | Outpatient (REF) | payer MEDICARE ==
[2018-06-08 16:33] LABS: MEAN CORPUSCULAR HEMOGLOBIN 30.1 pg (27.0-33.0); MEAN CORPUSCULAR HGB CONC 33.3 g/dl (32.0-36.5); MEAN CORPUSCULAR VOLUME 90.2 fl (80.0-96.0); PLATELET COUNT, AUTOMATED 372 10^3/uL (150-450); RED BLOOD COUNT 4.99 10^6/uL (4.00-5.40); WHITE BLOOD COUNT 14.8 10^3/uL (4.0-10.0)
[2018-06-08 16:57] LABS: ALBUMIN 4.1 GM/DL (3.2-5.2); ALT/SGPT 30 U/L (12-78); BILIRUBIN,TOTAL 0.3 MG/DL (0.2-1.0); BLOOD UREA NITROGEN 13 MG/DL (7-18); CALCIUM LEVEL 8.4 MG/DL (8.5-10.1); CARBON DIOXIDE LEVEL 32 MEQ/L (21-32); CHLORIDE LEVEL 98 MEQ/L (98-107); CREATININE FOR GFR 0.95 MG/DL (0.55-1.30); GLOMERULAR FILTRATION RATE > 60.0 (>51); GLUCOSE, FASTING 94 MG/DL (70-100); NT-PRO BNP 62 PG/ML (<125); POTASSIUM SERUM 3.7 MEQ/L (3.5-5.1); SODIUM LEVEL 138 MEQ/L (136-145); THYROID STIMULATING HORMONE 0.274 uIU/ML (0.358-3.740); TOTAL PROTEIN 8.3 GM/DL (6.4-8.2)
== END ==
LOC: M LABDRAW1 15:58
PROVIDERS: ATTEND Internal Medicine Cardiovascular Disease
DX: I50.32 Chronic diastolic (congestive) heart failure (principal); I11.0 Hypertensive heart disease with heart failure

== ENCOUNTER → 2018-06-22 | Outpatient (CLI) | payer OTHER, MEDICARE ==
--- NOTE | 2018-07-08 01:11 | ECWPNPC ---
PATIENT NAME: JUNIOR CURTIS : 1965 GENDER: FEMALE VISIT DATE: 06/22/2018 DISCHARGE DATE: 06/22/18 1040 VISIT LOCKED DATE TIME: PHYSICIAN: EVERTON SNOW MD RESOURCE: EVERTON SNOW MD REASON FOR APPOINTMENT 1. W/C LEFT ARM HISTORY OF PRESENT ILLNESS HISTORY OF PRESENT ILLNESS: PAIN THE PATIENT DESCRIBES THE PAIN... PATIENT IS A 52 YEAR OLD FEMALE WITH A HISTORY OF CHRONIC LEFT ARM PAIN. THE PATIENT DESCRIBES THE PAIN ACHING, SORE, TENDER, STABBING AND CONTINUOUS WITH A PAIN SCALE OF 7-10/10 DEPENDING ON PHYSICAL ACTIVITY. THE PATIENT WAS HURT IN A WORK RELATED INJURY IN 1988 WHILE WORKING FOR [employer]. THE PATIENT IS CURRENTLY USING NUCYNTA, METAXALONE AND CARBAMAZEPINE TO AID IN PAIN RELIEF. PATIENT STATES SHE HAS DIFFICULTY DOING ACTIVITIES SUCH COOKING AND CLEANING DUE TO THIS PAIN. THE PATIENT STATES SHE HAS DIFFICULTY USING HER ARM DUE TO IT BEING PAINFUL TO THE TOUCH. PATIENT DENIES UNEXPLAINABLE WEIGHT LOSS, FEVER, CHILLS, NEW CHANGES ON HER URINARY OR BOWEL CONTROL. FALL RISK SCREENING: SCREENING : NO FALLS IN THE PAST YEAR. CURRENT MEDICATIONS TAKING ADVAIR DISKUS 250-50 MCG/DOSE AEROSOL POWDER BREATH ACTIVATED 1 PUFF INHALATION TWICE A DAY TAKING SYNTHROID 125 MCG TABLET 1 TABLET ON AN EMPTY STOMACH IN THE MORNING ORALLY ONCE A DAY TAKING SPIRONOLACTONE 25 MG TABLET 1 TAB ORALLY TWICE A DAY TAKING FUROSEMIDE 80 MG TABLET 1 TABLET ORALLY TWICE A DAY TAKING CARVEDILOL 6.25 MG TABLET 1 TABLET WITH FOOD ORALLY TWICE A DAY TAKING CELEXA 40 MG TABLET 1 TABLET ONCE A DAY ORALLY 30 ORALLY ONCE DAILY TAKING PANTOPRAZOLE SODIUM 40 MG ENTERIC COATED TABLET 1 TABLET ORALLY ONCE A DAY TAKING MAY USE CBD OILS SUBLINGUALLY BID PRN TAKING FLONASE 50 MCG/ACT SUSPENSION 1 SPRAY IN EACH NOSTRIL NASALLY ONCE A DAY TAKING VITAMIN D3 ADULT GUMMIES 1000 UNIT TABLET CHEWABLE 1 TABLET ORALLY ONCE A DAY TAKING MIRALAX . POWDER DIRECTED ORALLY DAILY -17 GRAMS IN 8 OZ FLUID PRN CONSTIPATION - LARGE JAR, NOTES: PAIN CLINIC TAKING NUCYNTA 75 MG TABLET 1 TABLET ORALLY Q8H PRN MDD3, NOTES: WORKERS COMP TAKING CARBAMAZEPINE ER 200 MG CAPSULE EXTENDED RELEASE 12 HOUR 2 CAPSULE ORALLY TWICE A DAY, NOTES: WORKERS COMP TAKING METAXALONE 800 MG TABLET 1 TABLET PRN ORALLY FOR SPASMS TWICE DAILY, NOTES: WORKERS COMP TAKING PRAVASTATIN SODIUM 40 MG TABLET TAKE 1 TABLET BY MOUTH ONCE DAILY TAKING LISINOPRIL 10 MG TABLET 1 TABLET ORALLY ONCE A DAY MEDICATION LIST REVIEWED AND RECONCILED WITH THE PATIENT PAST MEDICAL HISTORY 09/13/13 ECHOCARDIOGRAM DIASTOLIC CHF, LVEF 75%. [facility] MARCH 2009 NUCLEAR STRESS TEST STOPPED WITH SHORTNESS OF BREATH AND FATIGUE. NO CHEST PAIN AND NO EKG CHANGE. NORMAL LV SIZE, MOTION, AND MYOCARDIAL PERFUSION. 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 TOBACCO ABUSE MORBID OBESITY REFLEX SYMPATHETIC DYSTROPHY OF LEFT ARM, 1988, ARM CAUGHT IN A MIXER WHILE AT WORK, AT [employer] COMP CASE OVER THE YEARS PAIN THE PERSISTEDLY GOT WORSE SCOLIOSIS HERNIATED DISC GERD BONE DENSITY 2013 =NORMAL=5 YEAR FOLLOW UP FAMILY HISTORY OF POWDER SHOVELER CANCER UTERINE, MOTHER AND SISTER POSTPROCEDURAL HYPOTHYROIDISM, DISMISSED BY DR. PONCE 02/12/2017 TO FOLLOW WITH PRIMARY CARE PROVIDER 08/26/17 REFUSED COLONOSCOPY12/17/17 AGREES TO COLONOSCOPY 09/04/2017, PULMONARY FUNCTION TESTS, POSITIVE METHACHOLINE CHALLENGE 10/06/2017 HOLTER MONITOR 48 HOURS WITHIN NORMAL LIMITS 12/17/2017, FAMILY HISTORY OF PRECANCEROUS COLON POLYPS, YOUNGER BROTHER ASTHMA ALLERGIES NSAIDS: ALLERGY SURGICAL HISTORY X3 RT KNEE REPAIR 1999 CARPAL TUNNEL REPAIR ON LEFT [address] MARCELINO HOARSENESS DUE TO LARYNGEAL INJURY 01/24/[address] HOFFMAN IN S[place] AT [facility] 08/26/10 SUBUNGUAL EXOSTOSIS RIGHT FOOT, TOTAL NAIL AVULSION RIGHT HALLUX 09/04/16 FAMILY HISTORY FATHER: , ALCHOLIC AND DIABETEC MOTHER: , AGE 34 YRS PT WAS AGE 4 CANCER FOUND WITH HYSTERECTOMY, UTERINE PATERNAL UNCLE: , DIAGNOSED WITH CANCER 1 BROTHER PASSED MARNIE BEASLEY, CHF, DM2\N3 OTHER BROTHERS, 2 HAVE SLEEP APNEA (BROTHER FARZANA DOES NOT GO TO DOCTORS 57) \N1 SISTER ALIVE SLEEP APNEA DM2, GALLBLADDER JUST REMOVED, [place] AGE 20 POSSIBLE POWDER SHOVELER\N1 DAUGHTER IN [place] 2 SONS IN [place]. SOCIAL HISTORY GENERAL: TOBACCO USE ARE YOU A:CURRENT SMOKER ARE YOU INTERESTED IN QUITTING?THINKING ABOUT QUITTING COUNSELED THE PATIENT ON SMOKING CESSATION, EDUCATION [id number]/11/2019 HOW MANY CIGARETTES A DAY DO YOU SMOKE?6-10 HOW SOON AFTER YOU WAKE UP DO YOU SMOKE YOUR FIRST CIGARETTE?WITHIN 5 MIN HOW OFTEN DO YOU SMOKE CIGARETTES?EVERY DAY PATIENT COUNSELED ON THE DANGERS OF TOBACCO USE AND URGED TO QUIT:04/24/2018 SMOKING CESSATION INFORMATION GIVEN12/09/2017 LUNG CANCER SCREENING SMOKING STATUS:CURRENT SMOKER BMI CARE GOAL FOLLOW-UP ABOVE NORMAL BMI FOLLOW-UPLIFESTYLE EDUCATION REGARDING DIET ALCOHOL SCREENING DID YOU HAVE A DRINK CONTAINING ALCOHOL IN THE PAST YEAR?NO POINTS0 INTERPRETATIONNEGATIVE RECREATIONAL DRUG USE DENIES. CAFFEINE 1-2/DAY. SEXUAL HX HAD SEX IN THE LAST 12 MONTHS (VAGINAL, ORAL, OR ANAL)?YES WITHMEN ONLY LMP:01/2010 HAVE YOU EVER HAD AN STD?NO HIV / HEP-C SCREENING HIV TEST OFFERED TO PATIENT:YES DATE OFFERED:12/12/2016 TEST ACCEPTED:NO HEP-C TEST OFFERED TO PATIENT:NO REASON:PATIENT DECLINED RESTORATION ORTHODOX. LANGUAGE GERMAN. EDUCATION LEVEL OF EDUCATION:HIGH SCHOOL LEARNING BARRIERS / SPECIAL NEEDS CHANGE FROM LAST VISIT?NO BARRIERS TO LEARNING?NO HEARING IMPAIRED?NO VISION IMPAIRED?YES COGNITIVELY IMPAIRED?NO :CORRECTIVE LENSES READINESS TO LEARN?YES LEARNING PREFERENCES?NO LEARNING CAPABILITIES PRESENT?YES EMOTIONAL BARRIERS?NO DOMESTIC VIOLENCE NONE. OCCUPATION: DISABLED FROM [employer] 1988. DIET: REGULAR. EXERCISE: NONE. MARITAL STATUS: 1982 . OTHERS AT HOME: SPOUSE. PAIN CLINIC PFS, CLERGY, PUBLIC HEALTH REFERRALS WAS THE PROVIDER NOTIFIED OF ANY PERTINENT INFO?YES HAS THE PATIENT BEEN EDUCATED REGARDING HIS/HER PLAN OF CARE?YES HAS THE PATIENT BEEN EDUCATED REGARDING PAIN, THE RISK FOR PAIN, THE IMPORTANCE OF EFFECTIVE PAIN MANAGEMENT, AND THE PAIN ASSESSMENT PROCESS?YES PLEASE DOCUMENT ANY ADDTIONAL DETAILS. REVIEW OF [employer] VIDEO HOUSING: OWNS HOME LIVES WITH . ADVANCE DIRECTIVE ADVANCE DIRECTIVE DISCUSSED WITH PATIENT:YES HCP INFORMATION GIVEN TO PATIENT, REFUSED ASSISTANCE WITH FILLINT IT OUT. REVIEWED WITH PATIENT 01/23/18 0982 JSREVEIWED WITH PATIENT 04/24/18 1004 JS. HOSPITALIZATION/MAJOR DIAGNOSTIC PROCEDURE C SECTION X 3 KNEE SURGERY 2000 THYROID SURGERY REVIEW OF SYSTEMS REVIEWED BY: PROVIDER: EVERTON SNOW MD . CONSTITUTIONAL: ANY CHANGE IN YOUR MEDICAL CONDITION? NO . CHILLS NO . FEVER NO . INFECTION: DO YOU HAVE NEW INFECTIONS? NO . DO YOU HAVE HISTORY OF MRSA? NO . MUSCULOSKELETAL: ANY NEW PATTERNS OF PAIN OR NUMBNESS? NO . GASTROENTEROLOGY: ANY NEW CHANGE IN BOWEL CONTROL? NO . GENITOURINARY: ANY NEW CHANGE IN BLADDER CONTROL? NO . IS THERE A CHANCE YOU COULD BE ? NO . HEMATOLOGY/LYMPH: DO YOU TAKE ANY BLOOD THINNERS? (FOR EXAMPLE- COUMADIN, PLAVIX, AGGRENOX, PLATEL, PRADAXA, OR XARELTO) NO . WHEN WAS YOUR LAST DOSE? DATE: TIME: . NEUROLOGY: HAVE YOU FALLEN IN THE PAST 12 MONTHS? NO . ANY NEW EXTREMITY NUMBNESS OR WEAKNESS? NO . CARDIOLOGY: DO YOU HAVE A PACEMAKER OR DEFIBRILLATOR? NO . RESPIRATORY: HAVE YOU BEEN SICK IN THE PAST WEEK? NO . FEVER NO . FLU LIKE SYMPTOMS? NO . COUGH NO . INTEGUMENTARY: DO YOU HAVE ANY RASHES OR OPEN SORES? NO . ALLERGIC/IMMUNO: ARE YOU ALLERGIC TO IV DYE? NO . ANY NEW ALLERGIES? NO . PSYCHIATRIC: DO YOU HAVE THOUGHTS OF HURTING YOURSELF OR SOMEONE ELSE? NO . ARE YOU ABUSED, NEGLECTED, OR IN AN UNSAFE ENVIRONMENT? NO . ENDOCRINOLOGY: ARE YOU DIABETIC? NO . OTHER: DO YOU NEED ANY PRESCRIPTIONS? NUCYNTA . IF YES, PLEASE LIST: ____ . ANY NEW PROBLEMS WITH YOUR MEDICATIONS? NO . WHEN DID YOU LAST EAT? ____ . WHEN DID YOU LAST DRINK? ____ . WHAT DID YOU LAST DRINK? ____ . NAME OF PERSON DRIVING YOU HOME? ____ . DO YOU HAVE ANY OTHER QUESTIONS OR CONCERNS NO . VITAL SIGNS WT 304.8 LBS, HT 65 IN, BMI 50.72 INDEX, BP 151/84 MM HG, HR 108 /MIN, RR 18 /MIN, TEMP 96.9 F, OXYGEN SAT % 93%, NA INITIALS SC 09:34. EXAMINATION GENERAL EXAMINATION: PATIENT IS ALERT O X 3 AND COOPERATIVE. PATIENT HAS DIFFICULTY ABDUCTING THE LEFT ARM. HAND CHILD MONITOR OVER THE LEFT SIDE IS REDUCED. THERE IS HYPERPATHIA OVER THE LEFT FOREARM. ASSESSMENTS NEURALGIA OF LEFT UPPER EXTREMITY - M79.2 (PRIMARY) LEFT ARM PAIN - M79.602 TREATMENT NEURALGIA OF LEFT UPPER EXTREMITY CLINICAL NOTES: WE DISCUSSED SEVERAL ISSUES WITH MRS. CURTIS'S PAIN MANAGEMENT CASE. THE PATIENT WILL TRY TO REDUCE HER METAXALONE. THE PATIENT WAS REMINDED TO BRING IN HER MEDICATION BOTTLES TO ALL APPOINTMENTS. ISTOP _[id number] WAS REVIEWED. URINE TOXICOLOGY DONE ON 04/24/2018 SHOWS CONCURRENT RESULTS. I WILL GET EXISTING IMAGING REPORTS OF ARM AND LEFT SHOULDER. I DISCUSSED WITH PATIENT THE POSSIBLE TRANSFER TO [facility] IN THE FUTURE, BUT FOR NOW THE PATIENT WILL FOLLOW UP WITH ME IN 3 MONTHS. INSTRUCTIONS WERE GIVEN, QUESTIONS WERE ANSWERED, PATIENT REPORTS UNDERSTANDING AND AGREES WITH THE PLAN. I, HALINA FAGAN, DOCUMENTED THE ABOVE INFORMATION ACTING A SCRIBE FOR DR. SNOW. I HAVE REVIEWED THE ABOVE DOCUMENT, WRITTEN BY HALINA NOVOAIBNegra AND I VERIFY THAT IT IS ACCURATE.. PROCEDURES PN WORKMANS' COMP OPINION IN YOUR OPINION, WAS THE INCIDENT THAT THE PATIENT DESCRIBED THE COMPETENT MEDICAL CAUSE OF THIS INJURY/ILLNESS? YES ARE THE PATIENT'S COMPLAINTS CONSISTENT WITH HIS/HER HISTORY OF THE INJURY/ILLNESS? YES IS THE PATIENT'S HISTORY OF THE INJURY/ILLNESS CONSISTENT WITH YOUR OBJECTIVE FINDING? YES WHAT IS THE PERCENTAGE OF TEMPORARY IMPAIRMENT? TOTAL = 100% IS THE PATIENT WORKING? NO DOCTOR ON SITE: EVERTON SAPP MD PROCEDURE CODES FA211 ESTABILISHED PATIENT [facility] FACILITY CHARGE G8427 CURRENT MEDS W/DOSAGES DOCUMENTED G8730 PAIN ASSESS POS TOOL F/U PLAN DOC DISPOSITION & COMMUNICATION FOLLOW UP F/U 3 MOS-WC ELECTRONICALLY SIGNED BY EVERTON SNOW MD, MD ON 07/06/2018 AT 06:17 PM EDT DISCLAIMER : THIS IS A VISIT SUMMARY EXTRACTED FROM THE [employer] CHART. IT IS NOT A COPY OF THE [employer] PROGRESS NOTE. ELBERTD
== END ==
LOC: M PAIN 09:30
PROVIDERS: ATTEND Anesthesiology
DX: M79.2 Neuralgia and neuritis, unspecified (principal); M79.602 Pain in left arm; G89.29 Other chronic pain; I50.30 Unspecified diastolic (congestive) heart failure; I11.0 Hypertensive heart disease with heart failure; E89.0 Postprocedural hypothyroidism; G47.33 Obstructive sleep apnea (adult) (pediatric); K21.9 Gastro-esophageal reflux disease without esophagitis; F17.210 Nicotine dependence, cigarettes, uncomplicated; E66.01 Morbid (severe) obesity due to excess calories; Z68.43 Body mass index [BMI] 50.0-59.9, adult; Z79.899 Other long term (current) drug therapy; Z88.6 Allergy status to analgesic agent

== ENCOUNTER → 2018-07-15 | Outpatient (REF) | payer MEDICARE ==
[~2018-07-15] MED LIST changes: -/CARB20TAB OR; -/CARBXR20T OR; -/RANI15TA PO; +CARB1TAB20 OR; +RANI1TAB17 PO; +TEGR1TAB OR
[2018-07-15 13:59] LABS: BLOOD UREA NITROGEN 12 MG/DL (7-18); CALCIUM LEVEL 8.6 MG/DL (8.5-10.1); CARBON DIOXIDE LEVEL 31 MEQ/L (21-32); CHLORIDE LEVEL 99 MEQ/L (98-107); CREATININE FOR GFR 0.89 MG/DL (0.55-1.30); GLOMERULAR FILTRATION RATE > 60.0 (>51); GLUCOSE, FASTING 120 MG/DL (70-100); MAGNESIUM LEVEL 2.3 MG/DL (1.8-2.4); PHOSPHORUS LEVEL 2.8 MG/DL (2.5-4.9); POTASSIUM SERUM 3.7 MEQ/L (3.5-5.1); SODIUM LEVEL 139 MEQ/L (136-145); THYROID STIMULATING HORMONE 0.341 uIU/ML (0.358-3.740)
== END ==
LOC: M LABDRAW1 11:37
PROVIDERS: ATTEND Internal Medicine Cardiovascular Disease
DX: I11.0 Hypertensive heart disease with heart failure (principal); I50.32 Chronic diastolic (congestive) heart failure; R94.31 Abnormal electrocardiogram [ECG] [EKG]; E03.9 Hypothyroidism, unspecified

== ENCOUNTER → 2018-09-14 | Outpatient (REF) | payer MEDICARE | LOC: M SFHCPLAZ 07:53 | PROVIDERS: ATTEND Nurse Practitioner Adult Health | DX: G90.519 Complex regional pain syndrome I of unspecified upper limb (principal); C73 Malignant neoplasm of thyroid gland | CPT/HCPCS: 36415; 84443; G0463 ==

== ENCOUNTER → 2018-09-21 | Outpatient (CLI) | payer OTHER ==
--- NOTE | 2018-09-28 00:54 | ECWPNPC ---
PATIENT NAME: JUNIOR CURTIS : 1965 GENDER: FEMALE VISIT DATE: 09/21/2018 DISCHARGE DATE: 09/21/18 0958 VISIT LOCKED DATE TIME: PHYSICIAN: EVERTON SNOW MD RESOURCE: EVERTON SNOW MD REASON FOR APPOINTMENT 1. W/C LEFT ARM HISTORY OF PRESENT ILLNESS HISTORY OF PRESENT ILLNESS: PAIN THE PATIENT DESCRIBES THE PAIN... 53 YEAR OLD FEMALE PATIENT WITH A HISTORY OF CHRONIC LEFT ARM PAIN. THE PATIENT DESCRIBES THE PAIN BURNING, SHOOTING, SORE, AND DAILY WITH A PAIN SCORE OF 7-9/10 DEPENDING ON PHYSICAL ACTIVITY. THE PATIENT WAS HURT IN A WORK RELATED INJURY IN 1988 WHILE WORKING A [employer] FOR [employer]. THE PATIENT STATES THE PAIN IS MAINLY IN HER RIGHT UPPER ARM. THE PATIENT SAYS SHE HAS DIFFICULTY PERFORMING HER DAILY ACTIVITIES SUCH COOKING, CLEANING, AND DRIVING DUE TO THE ARM PAIN. THE PATIENT STATES SHE HAS DIFFICULTY USING HER ARM DUE TO IT BEING PAINFUL TO THE TOUCH. THE PATIENT IS CURRENTLY USING NUCYNTA, METAXALONE, AND CARBAMAZEPINE PAIN RELIEVERS. THE PATIENT SAYS THE MEDICATION HELPS HER STAY MOBILE AND FUNCTIONAL THROUGH THE DAY. PATIENT DENIES UNEXPLAINABLE WEIGHT LOSS, FEVER, CHILLS, NEW CHANGES ON HER URINARY OR BOWEL CONTROL. FALL RISK SCREENING: SCREENING :NO FALLS REPORTED IN THE LAST YEAR CURRENT MEDICATIONS TAKING SYNTHROID 125 MCG TABLET 1 TABLET ON AN EMPTY STOMACH IN THE MORNING ORALLY ONCE A DAY TAKING SPIRONOLACTONE 25 MG TABLET 1 TAB ORALLY TWICE A DAY-TAKES NEEDED TAKING FUROSEMIDE 80 MG TABLET 1 TABLET ORALLY TWICE A DAY TAKING CARVEDILOL 6.25 MG TABLET 1 TABLET WITH FOOD ORALLY TWICE A DAY TAKING PANTOPRAZOLE SODIUM 40 MG ENTERIC COATED TABLET 1 TABLET ORALLY ONCE A DAY TAKING MAY USE CBD OILS SUBLINGUALLY BID PRN TAKING FLONASE 50 MCG/ACT SUSPENSION 1 SPRAY IN EACH NOSTRIL NASALLY ONCE A DAY TAKING MIRALAX . POWDER DIRECTED ORALLY DAILY -17 GRAMS IN 8 OZ FLUID PRN CONSTIPATION - LARGE JAR, NOTES: PAIN CLINIC TAKING LISINOPRIL 10 MG TABLET 1 TABLET ORALLY ONCE A DAY TAKING CELEXA 40 MG TABLET TAKE 1 TABLET BY MOUTH ONCE DAILY TAKING PANTOPRAZOLE SODIUM 40 MG TABLET DELAYED RELEASE TAKE 1 TABLET BY MOUTH ONCE A DAY , NOTES: DUPILCATE TAKING PRAVASTATIN SODIUM 40 MG TABLET TAKE 1 TABLET BY MOUTH ONCE DAILY TAKING NUCYNTA 75 MG TABLET 1 TABLET ORALLY Q8H PRN MDD3, NOTES: WORKERS COMP TAKING CARBAMAZEPINE ER 400 MG TABLET EXTENDED RELEASE 12 HOUR 2 CAPSULE ORALLY TWICE A DAY, NOTES: WORKERS COMP TAKING METAXALONE 800 MG TABLET 1 TABLET PRN ORALLY FOR SPASMS TWICE DAILY, NOTES: WORKERS COMP TAKING VITAMIN D3 2000 UNIT CAPSULE 1 CAPSULE ORALLY ONCE A DAY TAKING METAMUCIL FIBER 51.7 % PACKET 1 PACKET ORALLY DAILY FOR STOOLS NOT-TAKING ADVAIR DISKUS 250-50 MCG/DOSE AEROSOL POWDER BREATH ACTIVATED 1 PUFF INHALATION TWICE A DAY MEDICATION LIST REVIEWED AND RECONCILED WITH THE PATIENT PAST MEDICAL HISTORY 09/13/13 ECHOCARDIOGRAM DIASTOLIC CHF, LVEF 75%. [facility] MARCH 2009 NUCLEAR STRESS TEST STOPPED WITH SHORTNESS OF BREATH AND FATIGUE. NO CHEST PAIN AND NO EKG CHANGE. NORMAL LV SIZE, MOTION, AND MYOCARDIAL PERFUSION. 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 TOBACCO ABUSE MORBID OBESITY REFLEX SYMPATHETIC DYSTROPHY OF LEFT ARM, 1988, ARM CAUGHT IN A MIXER WHILE AT WORK, AT [employer] COMP CASE OVER THE YEARS PAIN THE PERSISTEDLY GOT WORSE SCOLIOSIS HERNIATED DISC GERD BONE DENSITY 2013 =NORMAL=5 YEAR FOLLOW UP FAMILY HISTORY OF SHIP PILOT DISPATCHER CANCER UTERINE, MOTHER AND SISTER POSTPROCEDURAL HYPOTHYROIDISM, DISMISSED BY DR. PONCE 02/12/2017 TO FOLLOW WITH PRIMARY CARE PROVIDER 08/26/17 REFUSED COLONOSCOPY12/17/17 AGREES TO COLONOSCOPY 09/04/2017, PULMONARY FUNCTION TESTS, POSITIVE METHACHOLINE CHALLENGE 10/06/2017 HOLTER MONITOR 48 HOURS WITHIN NORMAL LIMITS 12/17/2017, FAMILY HISTORY OF PRECANCEROUS COLON POLYPS, YOUNGER BROTHER ASTHMA MENOPAUSE NEURALGIA MYALGIA PAIN RIGHT GREAT TOE VITAMIN D DIFICENCY CARPAL TUNNEL LEFT ALLERGIES NSAIDS: ELEVATED B/P, GI ISSUES - ALLERGY SURGICAL HISTORY X3 RT KNEE REPAIR 1999 CARPAL TUNNEL REPAIR ON LEFT [address] MARCELINO HOARSENESS DUE TO LARYNGEAL INJURY 01/24/[address] HOFFMAN IN [facility] AT [facility] 08/26/10 SUBUNGUAL EXOSTOSIS RIGHT FOOT, TOTAL NAIL AVULSION RIGHT HALLUX 09/04/16 FAMILY HISTORY FATHER: , ALCHOLIC AND DIABETEC MOTHER: , AGE 34 YRS PT WAS AGE 2 CANCER FOUND WITH HYSTERECTOMY, UTERINE PATERNAL UNCLE: , DIAGNOSED WITH CANCER 1 BROTHER PASSED MARNIE BEASLEY, CHF, DM2\N3 OTHER BROTHERS, 2 HAVE SLEEP APNEA (BROTHER FARZANA DOES NOT GO TO DOCTORS 57) \N1 SISTER ALIVE SLEEP APNEA DM2, GALLBLADDER JUST REMOVED, [place] AGE 20 POSSIBLE SHIP PILOT DISPATCHER\N1 DAUGHTER IN [place] 2 SONS IN [place]\N. SOCIAL HISTORY GENERAL: TOBACCO USE ARE YOU A:CURRENT SMOKER ARE YOU INTERESTED IN QUITTING?THINKING ABOUT QUITTING COUNSELED THE PATIENT ON SMOKING CESSATION, EDUCATION WHYHGCLF20/10/2019 HOW MANY CIGARETTES A DAY DO YOU SMOKE?11-20 HOW SOON AFTER YOU WAKE UP DO YOU SMOKE YOUR FIRST CIGARETTE?WITHIN 5 MIN HOW OFTEN DO YOU SMOKE CIGARETTES?EVERY DAY PATIENT COUNSELED ON THE DANGERS OF TOBACCO USE AND URGED TO QUIT:09/21/2018 SMOKING CESSATION INFORMATION GIVEN12/09/2017 HIV / HEP-C SCREENING HIV TEST OFFERED TO PATIENT:YES DATE OFFERED:12/12/2016 TEST ACCEPTED:NO REASON:PATIENT DECLINED HEP-C TEST OFFERED TO PATIENT:NO OTHERS AT HOME: SPOUSE. HOUSING: OWNS HOME LIVES WITH . EDUCATION LEVEL OF EDUCATION:HIGH SCHOOL DIET: REGULAR. LANGUAGE GREENLANDIC. DOMESTIC VIOLENCE DO YOU FEEL SAFE IN YOUR ENVIRONMENT?YES BMI CARE GOAL FOLLOW-UP ABOVE NORMAL BMI FOLLOW-UPLIFESTYLE EDUCATION REGARDING DIET RECREATIONAL DRUG USE DENIES. EXERCISE: NONE. LEARNING BARRIERS / SPECIAL NEEDS CHANGE FROM LAST VISIT?NO BARRIERS TO LEARNING?NO HEARING IMPAIRED?NO VISION IMPAIRED?YES :CORRECTIVE LENSES COGNITIVELY IMPAIRED?NO READINESS TO LEARN?YES LEARNING PREFERENCES?NO LEARNING CAPABILITIES PRESENT?YES EMOTIONAL BARRIERS?NO SPECIAL DEVICES?NO HEALTH COACH NEEDED?NO LUNG CANCER SCREENING SMOKING STATUS:CURRENT SMOKER PAIN CLINIC PFS, CLERGY, PUBLIC HEALTH REFERRALS WAS THE PROVIDER NOTIFIED OF ANY PERTINENT INFO? N/A HAS THE PATIENT BEEN EDUCATED REGARDING HIS/HER PLAN OF CARE?YES HAS THE PATIENT BEEN EDUCATED REGARDING PAIN, THE RISK FOR PAIN, THE IMPORTANCE OF EFFECTIVE PAIN MANAGEMENT, AND THE PAIN ASSESSMENT PROCESS?YES PLEASE DOCUMENT ANY ADDTIONAL DETAILS. REVIEW OF DCS VIDEO LATEX QUESTIONNAIRE LATEX ALLERGY : HAVE YOU EVER DEVELOPED ANY TYPE OF REACTION AFTER HANDLING LATEX PRODUCTS SUCH RUBBER GLOVES, CONDOMS, DIAPHRAGMS, BALLOONS, SOCKS, OR UNDERWEAR?NO LATEX ALLERGY : HAVE YOU EVER DEVELOPED ANY TYPE OF REACTION DURING OR AFTER DENTAL APPOINTMENT, VAGINAL/RECTAL EXAMINATION, SURGICAL PROCEDURE, OR ANY OTHER EXPOSURE?NO LATEX RISK : HAVE YOU EVER HAD ANY DIFFICULTY BREATHING OR HIVES AFTER EATING OR HANDLING ANY FRUITS, OR VEGETABLES; SUCH KIWI, BANANAS, STONE FRUITS, OR CHESTNUTSNO LATEX RISK : DO YOU HAVE A PREVIOUS PERSONAL HISTORY OF MORE THAN NINE SURGERIES, SPINA BIFIDA, OR REPEATED CATHERTIZATIONS? NO LATEX RISK : ARE YOU FREQUENTLY EXPOSED TO LATEX PRODUCTS IN YOUR OCCUPATION?NO DATE ASKED : 09/14/2018 CAFFEINE 1-2/DAY. ADVANCE DIRECTIVE ADVANCE DIRECTIVE DISCUSSED WITH PATIENT:YES PT DOES NOT HAVE ANY ADVANCED DIRECTIVES . STATES SHE HAS INFORMATION ON HCP BUT HAS NOT COMPLETED IT YET. HELP OFFERED IN COMPLETING IF NEEDED. AD SIKHISM JAIN. MARITAL STATUS: 1981 . ALCOHOL SCREENING DID YOU HAVE A DRINK CONTAINING ALCOHOL IN THE PAST YEAR?NO POINTS0 INTERPRETATIONNEGATIVE OCCUPATION: DISABLED FROM [employer] 1988. SEXUAL HX HAD SEX IN THE LAST 12 MONTHS (VAGINAL, ORAL, OR ANAL)?YES WITHMEN ONLY HAVE YOU EVER HAD AN STD?NO LMP:01/2010 REVIEWED WITH PATIENT 01/23/18 0936 JSREVEIWED WITH PATIENT 04/24/18 1004 JS. HOSPITALIZATION/MAJOR DIAGNOSTIC PROCEDURE C SECTION X 3 KNEE SURGERY 2000 THYROID SURGERY REVIEW OF SYSTEMS REVIEWED BY: PROVIDER: EVERTON SNOW MD . CONSTITUTIONAL: ANY CHANGE IN YOUR MEDICAL CONDITION? NO . CHILLS NO . FEVER NO . INFECTION: DO YOU HAVE NEW INFECTIONS? NO . DO YOU HAVE HISTORY OF MRSA? NO . MUSCULOSKELETAL: ANY NEW PATTERNS OF PAIN OR NUMBNESS? NO . GASTROENTEROLOGY: ANY NEW CHANGE IN BOWEL CONTROL? NO . GENITOURINARY: ANY NEW CHANGE IN BLADDER CONTROL? NO . IS THERE A CHANCE YOU COULD BE ? NO . HEMATOLOGY/LYMPH: DO YOU TAKE ANY BLOOD THINNERS? (FOR EXAMPLE- COUMADIN, PLAVIX, AGGRENOX, PLATEL, PRADAXA, OR XARELTO) NO . WHEN WAS YOUR LAST DOSE? DATE: TIME: . NEUROLOGY: HAVE YOU FALLEN IN THE PAST 12 MONTHS? NO . ANY NEW EXTREMITY NUMBNESS OR WEAKNESS? NO . CARDIOLOGY: DO YOU HAVE A PACEMAKER OR DEFIBRILLATOR? NO . RESPIRATORY: HAVE YOU BEEN SICK IN THE PAST WEEK? NO . FEVER NO . FLU LIKE SYMPTOMS? NO . COUGH NO . INTEGUMENTARY: DO YOU HAVE ANY RASHES OR OPEN SORES? NO . ALLERGIC/IMMUNO: ARE YOU ALLERGIC TO IV DYE? NO . ANY NEW ALLERGIES? NO . PSYCHIATRIC: DO YOU HAVE THOUGHTS OF HURTING YOURSELF OR SOMEONE ELSE? NO . ARE YOU ABUSED, NEGLECTED, OR IN AN UNSAFE ENVIRONMENT? NO . ENDOCRINOLOGY: ARE YOU DIABETIC? NO . OTHER: DO YOU NEED ANY PRESCRIPTIONS? NO . IF YES, PLEASE LIST: ____ . ANY NEW PROBLEMS WITH YOUR MEDICATIONS? NO . WHEN DID YOU LAST EAT? ____ . WHEN DID YOU LAST DRINK? ____ . WHAT DID YOU LAST DRINK? ____ . NAME OF PERSON DRIVING YOU HOME? ____ . DO YOU HAVE ANY OTHER QUESTIONS OR CONCERNS NO . VITAL SIGNS WT 301.6 LBS, HT 65 IN, BMI 50.18 INDEX, BP 124/63 MM HG, HR 77 /MIN, RR 18 /MIN, TEMP 97.9 F, OXYGEN SAT % 95%, SAFE IN ENV? (Y/N) Y, NA INITIALS AW 0856, REVIEWED BY: RADHA. EXAMINATION GENERAL EXAMINATION: PATIENT IS ALERT O X 3 AND COOPERATIVE. PATIENT HAS DIFFICULTY RAISING HER LEFT ARM. HAND RN MOBILE IS REDUCED ON THE LEFT SIDE. ALLODYNIA IN ARM AND SHOULDER ON THE LEFT SIDE. ASSESSMENTS NEURALGIA OF LEFT UPPER EXTREMITY - M79.2 (PRIMARY) PAIN OF LEFT ARM - M79.602 TREATMENT NEURALGIA OF LEFT UPPER EXTREMITY CLINICAL NOTES: WE DISCUSSED SEVERAL ISSUES WITH MS. CURTIS'S PAIN MANAGEMENT CASE. THE PATIENT IS CURRENTLY EXPERIENCING GOOD PAIN RELIEF FROM HER CURRENT MEDICATION REGIMEN. I WILL BE DECREASING AND REFILLING THE PATIENT'S METAXALONE FROM 60 TO 50 TABLETS FOR THE MONTH. I AM REFERRING THE PATIENT TO ANALISA BANGURA, PRIMARY CARE PHYSICIAN AT [facility], FOR MEDICATION MANAGEMENT. I EXPLAINED TO THE PATIENT THAT I AM NOT SURE IF SHE WILL BE ACCEPTED AT THE [facility], SO I AM KEEPING A F/UP APPONTMENT AT OUR FACILITY FOR NOW. UTOX WAS PERFORMED TODAY. ISTOP ____# [id number] WAS REVIEWED. THE PATIENT WILL FOLLOW UP IN 3 MONTHS AND WAS ADVISED TO CALL SOONER IF NEEDED. INSTRUCTIONS WERE GIVEN, QUESTIONS WERE ANSWERED, PATIENT REPORTS UNDERSTANDING AND AGREES WITH THE PLAN. I, RONY LEÓN, DOCUMENTED THE ABOVE INFORMATION ACTING A SCRIBE FOR DR. SNOW. I HAVE REVIEWED THE ABOVE DOCUMENT, WRITTEN BY RONY NASCIMENTO AND I VERIFY THAT IT IS ACCURATE. . OTHERS REFILL METAXALONE TABLET, 800 MG, 1 TABLET PRN, ORALLY FOR SPASMS, EVERY 8 HOURS NEEDED MDD3, 30 DAY(S), 50, REFILLS 0, NOTES: WORKERS COMP REFILL CARBAMAZEPINE ER TABLET EXTENDED RELEASE 12 HOUR, 400 MG, 2 CAPSULE, ORALLY, TWICE A DAY MDD4, 30 DAYS, 120, REFILLS 1, NOTES: WORKERS COMP REFILL NUCYNTA TABLET, 75 MG, 1 TABLET, ORALLY FOR PAIN, Q8H PRN MDD3, 30 DAY(S), 90, REFILLS 0, NOTES: WORKERS COMP PROCEDURES PN WORKMANS' COMP OPINION IN YOUR OPINION, WAS THE INCIDENT THAT THE PATIENT DESCRIBED THE COMPETENT MEDICAL CAUSE OF THIS INJURY/ILLNESS? YES ARE THE PATIENT'S COMPLAINTS CONSISTENT WITH HIS/HER HISTORY OF THE INJURY/ILLNESS? YES IS THE PATIENT'S HISTORY OF THE INJURY/ILLNESS CONSISTENT WITH YOUR OBJECTIVE FINDING? YES WHAT IS THE PERCENTAGE OF TEMPORARY IMPAIRMENT? TOTAL = 100% IS THE PATIENT WORKING? NO DOCTOR ON SITE: EVERTON SAPP MD PROCEDURE CODES FA211 ESTABILISHED PATIENT [facility] FACILITY CHARGE G8427 CURRENT MEDS W/DOSAGES DOCUMENTED G8730 PAIN ASSESS POS TOOL F/U PLAN DOC DISPOSITION & COMMUNICATION FOLLOW UP 3 MONTHS (REASON: MEDS) ELECTRONICALLY SIGNED BY EVERTON SNOW MD, ON 09/27/2018 AT 09:07 PM EDT DISCLAIMER : THIS IS A VISIT SUMMARY EXTRACTED FROM THE [employer] CHART. IT IS NOT A COPY OF THE [employer] FFT PROGRESS NOTE. JUAN PABLO
== END ==
LOC: M PAIN 08:45
PROVIDERS: ATTEND Anesthesiology
DX: M79.2 Neuralgia and neuritis, unspecified (principal); M79.602 Pain in left arm; G89.29 Other chronic pain; Z79.899 Other long term (current) drug therapy; F17.210 Nicotine dependence, cigarettes, uncomplicated; Z88.8 Allergy status to other drugs, medicaments and biological substances

== ENCOUNTER → 2018-10-12 | Outpatient (REF) | payer MEDICARE ==
[2018-10-12 12:45] LABS: BASO # 0.1 10^3/uL (0.0-0.2); BASO % 0.6 % (0.0-1.0); EOS # 0.2 10^3/uL (0.0-0.50); EOS % 1.5 % (0.0-3.0); HEMATOCRIT 47.5 % (36.0-47.0); HEMOGLOBIN 15.6 g/dl (12.0-15.5); LYMPH # 2.4 10^3/uL (1.5-4.5); LYMPH % 18.9 % (24.0-44.0); MEAN CORPUSCULAR HEMOGLOBIN 30.6 pg (27.0-33.0); MEAN CORPUSCULAR HGB CONC 32.8 g/dl (32.0-36.5); MEAN CORPUSCULAR VOLUME 93.3 fl (80.0-96.0); MONO # 0.7 10^3/uL (0.0-0.8); MONO % 5.3 % (0.0-5.0); NEUTROPHILS # 9.3 10^3/uL (1.8-7.7); NEUTROPHILS % 73.3 % (36.0-66.0); PLATELET COUNT, AUTOMATED 374 10^3/uL (150-450); RED BLOOD COUNT 5.09 10^6/uL (4.00-5.40); WHITE BLOOD COUNT 12.7 10^3/uL (4.0-10.0)
[2018-10-12 13:10] LABS: ALBUMIN 4.1 GM/DL (3.2-5.2); BILIRUBIN,TOTAL 0.3 MG/DL (0.2-1.0); CALCIUM LEVEL 8.8 MG/DL (8.5-10.1); CREATININE FOR GFR 1.08 MG/DL (0.55-1.30); GLOMERULAR FILTRATION RATE 56.1 (>51); POTASSIUM SERUM 3.8 MEQ/L (3.5-5.1); TOTAL PROTEIN 8.4 GM/DL (6.4-8.2)
[2018-10-14 00:09] LABS: TISSUE TRANSGLUTAMINASE IgA <2 U/mL (0-3); TISSUE TRANSGLUTAMINASE IgG <2 U/mL (0-5)
== END ==
LOC: M SFHCPLAZ 10:54
PROVIDERS: ATTEND Nurse Practitioner Adult Health
DX: R19.7 Diarrhea, unspecified (principal)

== ENCOUNTER → 2018-10-12 | Outpatient (CLI) | payer MEDICARE ==
--- NOTE | 2018-10-12 12:28 | REP ---
Clinical: Diarrhea. Technique: Two supine views of the abdomen and pelvis. Findings: Bowel gas pattern is nonspecific. No evidence for bowel obstruction or perforation. No organomegaly. Skeletal structures are intact. Small bilateral nephroliths measuring up to approximately 3 mm are suspected. Impression: 1. Nonspecific bowel gas pattern. 2. Suspected nonobstructing nephroliths. Electronically Signed by Isaac Hall MD 10/12/2018 12:19 P
== END ==
LOC: M SMT 11:29
PROVIDERS: ATTEND Nurse Practitioner Adult Health
DX: R19.7 Diarrhea, unspecified (principal)

== ENCOUNTER 2019-02-15 12:27 | Inpatient (IN) | payer MEDICARE ==
[~2019-02-15] VITALS: Ht 165.1 cm; Wt 131.8 kg
[~2019-02-15 12:27] MED LIST changes: -ACET-907 PO; -CARB400T4 PO; -CARV6.25 PO; -CITA40TA4 PO; -FLON1SPR; -FLUTISP INH; -FURO80TA2 PO; -IPRA0.00 NEB; -LEVO125T4 PO; -LISI10TA4 PO; -MELA1TAB9 PO; -META1TAB22 PO; -NUCY75TA11 PO; -PANT-23 PO; -PANT40TA3 PO; -PRAV40TA2 PO; -PROV108A INH
[2019-02-15] MEDS ORDERED: PANT40TA3 PO (12:51)
[2019-02-15] MEDS ORDERED: FLUTISP INH (12:51)
[2019-02-15 13:37] LABS: BASO # 0.1 10^3/uL (0.0-0.2); BASO % 0.5 % (0.0-1.0); EOS # 0.2 10^3/uL (0.0-0.5); EOS % 1.3 % (0.0-3.0); HEMATOCRIT 44.2 % (36.0-47.0); HEMOGLOBIN 14.1 g/dl (12.0-15.5); LYMPH # 1.4 10^3/uL (1.5-5.0); LYMPH % 8.9 % (24.0-44.0); MEAN CORPUSCULAR HEMOGLOBIN 30.3 pg (27.0-33.0); MEAN CORPUSCULAR HGB CONC 31.9 g/dl (32.0-36.5); MEAN CORPUSCULAR VOLUME 95.1 fl (80.0-96.0); MONO % 6.1 % (0.0-5.0); NEUTROPHILS # 13.1 10^3/uL (1.5-8.5); NEUTROPHILS % 82.8 % (36.0-66.0); PLATELET COUNT, AUTOMATED 345 10^3/uL (150-450); RED BLOOD COUNT 4.65 10^6/uL (4.00-5.40); WHITE BLOOD COUNT 15.8 10^3/uL (4.0-10.0)
[2019-02-15 14:04] LABS: ALBUMIN 3.6 GM/DL (3.2-5.2); BILIRUBIN,DIRECT 0.1 MG/DL (0.0-0.2); BILIRUBIN,TOTAL 0.6 MG/DL (0.2-1.0); CALCIUM LEVEL 8.5 MG/DL (8.5-10.1); CREATININE FOR GFR 1.17 MG/DL (0.55-1.30); GLOMERULAR FILTRATION RATE 51.1 (>51); POTASSIUM SERUM 3.4 MEQ/L (3.5-5.1); TOTAL PROTEIN 7.4 GM/DL (6.4-8.2)
[2019-02-15] MEDS ORDERED: cefTRIAXone SOD 2 GM in D5W MINI-BAG PLUS 50 ML IV ONE (14:15)
[2019-02-15] MEDS ORDERED: AZITHROMYCIN INJ 500 MG, VIAL MATE ADAPTER 1 EACH in D5W 250 ML IV ONE (14:15)
[2019-02-15] MEDS ORDERED: SPIR-10 PO (15:04)
[2019-02-15] MEDS ORDERED: LISI10TA4 PO (15:04)
[2019-02-15] MEDS ORDERED: FLON1SPR (15:04)
[2019-02-15] MEDS ORDERED: FURO80TA2 PO (15:04)
[2019-02-15] MEDS ORDERED: LEVO125T4 PO (15:04)
[2019-02-15] MEDS ORDERED: PANT-23 PO (15:04)
[2019-02-15] MEDS ORDERED: MELA1TAB9 PO (15:04)
[2019-02-15] MEDS ORDERED: CITA40TA4 PO (15:04)
[2019-02-15] MEDS ORDERED: ACET-907 PO (15:04)
[2019-02-15] MEDS ORDERED: CARV6.25 PO (15:04)
[2019-02-15] MEDS ORDERED: CARB400T4 PO (15:04)
[2019-02-15] MEDS ORDERED: META1TAB22 PO (15:04)
[2019-02-15] MEDS ORDERED: PRAV40TA2 PO (15:04)
[2019-02-15] MEDS ORDERED: NUCY75TA11 PO (15:04)
[2019-02-15] MEDS ORDERED: ALBUTEROL SULFATE 2.5 MG/0.5 ML INH NEB SOLN INH PRN (16:00)
--- NOTE | 2019-02-15 16:35 | ECGEPIP ---
[facility] - ED Test Date: 2019-02-15 Pat Name: JUNIOR CURTIS Department: Room: - Gender: Female Oncology Consultant: : [id number] Requested By: Olu Marshall Order Number: [id number] Reading MD: Saskia Malin Measurements Intervals [place] Rate: 83 P: 73 NV: 175 QRS: 6 QRSD: 89 T: 34 QT: 322 QTc: 380 Interpretive Statements SINUS RHYTHM NONSPECIFIC T-WAVE ABNORMALITY NO PRIOR Electronically Signed on 02-15-2019 16:35:30 EST by Saskia Malin
[2019-02-15] MEDS: FUROSEMIDE 80 MG TAB PO SCH (17:00)
[2019-02-15] MEDS ORDERED: FLUTICASONE PROP 0.05% NASAL SPRAY 16 GM (FLONASE) PRN (17:30)
[2019-02-15 18:41] VITALS: BP 140/80
--- NOTE | 2019-02-15 19:03 | HPEPDOC ---
General Date of Admission Feb 15, 2019 at 15:56 Date of Service: Feb 15, 2019 Attending Physician: SHERYL DEE MD Chief Complaint The patient is a 53-year-old female admitted with a reason for visit of Rll Pneumonia; Rml Pneumonia. Source: Patient Exam Limitations: No limitations Timing/Duration: Week(s) Severity: Severe Associated Symptoms: Cough, Fever, Chills, Shortness of breath History of Present Illness 53 yo woman with a remote history of papillary thyroid CA s/p resection and radiation, CHF and follows with Dr. Mustafa, hypertension, smoker, FELI non compliant with CPAP who presented to the ED from her PCP's office with concern for pneumonia reporting a history of 3 weeks of a worsening productive cough of green sputum, a history of fevers, chills, initial rhinorrhea and congestion and now profound dyspnea on exertion that prompted her presentation to her PCP. She reports that she initially thought that her symptoms were secondary to a cold but when they did not resolve and she was out profoundly out of breath, she decided to seek medical attention and not continue to take mucinex and over hte counter remedies. In the ED BP was 112/53, P86, was afebrile and she was noted to have a saturation of 86% on room air that improved to 94% on 4L. Initial work up was notable for leukocytosis to 15.8 with neutrophilia, H/H 14.1/44.2, K 3.4, Cr 1.17, lactate of 1.2, CXR that showed RML and RLL opacities and blood and sputum cultures were collected before she was given ceftriaxone 1g and azithromycin IV for community acquired pneumonia. Home Medications Scheduled Carbamazepine (Carbamazepine ER) 400 Mg Tab.er.12h, 800 MG PO BID, (Reported) Carvedilol (Carvedilol) 6.25 Mg Tablet, 6.25 MG PO BID, (Reported) Citalopram Hydrobromide (Citalopram HBr) 40 Mg Tablet, 40 MG PO DAILY, (Reported) Furosemide (Furosemide) 80 Mg Tablet, 160 MG PO BID, (Reported) Levothyroxine Sodium (Levothyroxine Sodium) 125 Mcg Tablet, 125 MCG PO DAILY, (Reported) Lisinopril (Lisinopril) 10 Mg Tablet, 10 MG PO DAILY, (Reported) Melatonin (Melatonin) 5 Mg Tablet, 5 MG PO QHS, (Reported) Metaxalone (Metaxalone) 800 Mg Tablet, 800 MG PO Q8H, (Reported) Pantoprazole Sodium (Pantoprazole Sodium) 40 Mg Tablet.dr, 40 MG PO QHS, (Reported) Pravastatin Sodium (Pravastatin Sodium) 40 Mg Tablet, 40 MG PO QHS, (Reported) Spironolactone (Spironolactone) 25 Mg Tablet, 25 MG PO BID, (Reported) Tapentadol HCl (Nucynta) 75 Mg Tablet, 75 MG PO Q8H, (Reported) Scheduled PRN Acetaminophen (Tylenol) 325 Mg Tablet, 650 MG PO QHS PRN for PAIN, (Reported) Fluticasone Propionate (Flonase Allergy Relief) 9.9 Ml [place].susp, 2 SPRAY NA DAILY PRN for ALLERGIES, (Reported) Allergies Coded Allergies: No Known Allergies (Unverified , 02/15/19) Past Medical History Medical History Reflex sympathetic dystrophy of left arm CHF Hypertension Smoking, 1/2 ppd FELI non compliant with CPAP History of thyroid cancer Surgical History thyroidectomy Family History Significant Family History: No pertinent family hx Social History * Smoker: current smoker Alcohol: Denies Drugs: denies Recent Travel/Sick Contacts: Denies: Recent travel, Recent sick contacts Psychosocial History: No pertinent psych hx Lives at home with her who is not ill at this time She sees her young grandchildren often and none of them are ill at this time A-FIB/CHADSVASC A-FIB History Current/History of A-Fib/PAF?: No Current PO Anticoag Therapy: No Age/Risk Factor Scoring CHADSVASC: CHADSVASC Response (Comments) Value Age Risk Factor Age < 65 years old 0 Gender Risk Factor Female 1 Hx of CHF Yes 1 Hx of HTN Yes 1 Hx of Stroke/TIA/or VTE No 0 Hx of Diabetes No 0 Hx of Vascular Disease No 0 Total 3 Treatment Treatment ordered: NONE Reason Anticoagulant not given: Not indicated/[id number] Review of Systems Constitutional: Reports: Chills, Fever; Denies: Malaise, Night Sweats, Weakness, Weight Loss Eyes: Denies: Pain, Vision change ENT: Denies: Head Aches, Ear Pain, Dysphagia Skin: Denies: Rash, Lesions, Breakdown Pulmonary: Reports: Dyspnea, Cough, Pleuritic Chest Pain Cardiovascular: Denies: Chest Pain, Palpitations, Orthopnea, Paroxysmal Noc. Dyspnea, Edema Gastrointestinal: Denies: Nausea, Vomiting, Abdominal Pain, Diarrhea Genitourinary: Denies: Dysuria, Frequency, Incontinence, Retention Hematologic: Denies: Bruising, Bleeding Excessively Endocrine: Denies: Polydipsia, Polyphagia, Polyuria, Heat Intolerance, Cold Intolerance, Other Endocrine Sx Musculoskeletal: Reports: Back Pain; Denies: Neck Pain, Shoulder Pain, Arm Pain, Hand Pain, Leg Pain, Foot Pain, Joint Pain, Muscle Pain, Spasms, Other Symptoms Neurological: Denies: Weakness, Numbness, Change in speech, Confusion Psych: Reports: Mood Normal; Denies: Depression, Memory Issues Physical Examination General Exam: Positive: Alert, No Acute Distress, Other (Morbidly obese) Eye Exam: Positive: PERRLA, Conjunctiva & lids normal, EOMI; Negative: Sclera icteric ENT Exam: Positive: Atraumatic, Mucous membr. moist/pink, Pharynx Normal, Other ENT (copious hacking green mucus that she expectorates into tissue); Negative: Pharyngeal Edema, Nares Patent Neck Exam: Positive: Supple, Other (thick); Negative: JVD, thyromegaly, +2 carotid pulse wo bruit, Lymphadenopathy Chest Exam: Positive: Rales (bilateral posterior with clear apices), Rhonchi, Wheezing Heart Exam: Positive: Rate Normal, Regular Rhythm, Normal S1, Normal S2; Negative: Murmurs, Rubs Abdomen Exam: Positive: Normal bowel sounds, Soft, Tenderness, Other (morbid biopsy); Negative: Hepatospenomegaly, Mass Extremity Exam: Positive: Normal pulses; Negative: Clubbing, Cyanosis, Edema, Tenderness, Swelling Skin Exam: Positive: Nl turgor and temperature; Negative: Rash, Breakdown, Lesion Neuro Exam: Positive: Normal Speech, Strength at 5/5 X4 ext, Normal Tone, Sensation Intact, Cranial Nerves 3-12 NL Psych Exam: Positive: Mental status NL, Mood NL, Oriented x 3 Vital Signs Vital Signs Date Time Temp Pulse Resp B/P (MAP) Pulse Ox O2 Delivery O2 Flow Rate FiO2 02/15/19 16:25 98.7 80 20 102/61 (75) 93 Nasal Cannula 4.0 Laboratory Data Labs 24H Laboratory Tests 2 02/15/19 13:10: Immature Granulocyte % (Auto) 0.4, Neutrophils (%) (Auto) 82.8H, Lymphocytes (%) (Auto) 8.9L, Monocytes (%) (Auto) 6.1H, Eosinophils (%) (Auto) 1.3, Basophils (%) (Auto) 0.5, Neutrophils # (Auto) 13.1H, Lymphocytes # (Auto) 1.4L, Monocytes # (Auto) 1.0H, Eosinophils # (Auto) 0.2, Basophils # (Auto) 0.1, Nucleated Red Blood Cells % (auto) 0.0, Anion Gap 10, Glomerular Filtration Rate 51.1, Lactic Acid Level 1.2, Calcium Level 8.5, Total Bilirubin 0.6, Direct Bilirubin 0.1, Aspartate Amino Transf (AST/SGOT) 13, Alanine Aminotransferase (ALT/SGPT) 24, Alkaline Phosphatase 93, TD-May-S-Type Natriuretic Peptide 171H, Total Protein 7.4, Albumin 3.6, Albumin/Globulin Ratio 0.95L CBC/BMP Laboratory Tests 02/15/19 13:10 Microbiology Microbiology 02/15/19 Blood Culture, Received Pending 02/15/19 Gram Stain, Received Pending 02/15/19 Sputum Culture, Received Pending 02/15/19 Blood Culture, Received Pending Assessment/Plan 53 yo woman with a history of smoking, COPD, FELI non compliant with CPAP, morbid obesity with a history of 3 weeks of an increasingly productive cough, episodic fever, chills with leukocytosis, hypoxemia and chest xray with RML and RLL opacities c/w community acquired pneumonia now on ceftriaxone/azithromycin with pending blood and sputum cultures, with supporting COPD nebs and oxygen therapy, while continuing all her other medications. Community acquired pneumonia: -CXR with RML and RLL opacities, started on empiric ceftriaxone 2g Q24, and azithromycin IV -leukocytosis with neutrophilia, monitor daily CBCs -hypoxemia, continue oxygen therapy to goal 88-92% in patient with COPD -follow up blood and sputum cultures -procalcitonin -urine legionella and strep antigens -guaifenesin -incentive spirometry COPD: -duonebs Q6H while awake -albuterol nebs Q4H PRN for wheezing FELI: -refusing CPAP -will wear nasal canula Smoking: -discussed quitting at length for 10 min as it is contributing to a poor pulmonary reserve -Will think about quitting, has cut back while she has been ill -nicotine patch at 14mg/24h Morbid obesity: -discussed how it is negative affecting her pulmonary status and her sleep and that the high likelihood that she may have a combination of FELI and obesity hypoventilation syndrome, which negative effect the heart and functional status in general -a1c was 5.5 today -will defer nutrition to liaise with PCP as an outpatient CHF: -coreg 6.25 BID -lasix 160 BID -lisinopril 10 QD -Aldactone 25 QD Hyperlipidemia: -pravastatin 40 QD Chronic pain: -Tramadol 50 Q8H -Metaxolone GERD: -protonix 40 QD Psych: -Citalopram 40 History of papillary thyroid CA s/p thyroidectomy: -continue synthroid DVT prophylaxis: Lovenox Diet: cardiac Plan / VTE VTE Prophylaxis Ordered?: Yes SHERYL DEE MD Feb 15, 2019 19:03
[2019-02-15] MEDS: PANTOPRAZOLE 40MG TAB (PROTONIX) PO SCH (20:45)
[2019-02-15] MEDS: carBAMazepine XR 200 MG TAB PO SCH (20:45)
[2019-02-15] MEDS: PRAVASTATIN 20 MG TAB PO SCH (20:45)
[2019-02-15] MEDS: CARVedilol 6.25 MG TAB PO SCH (20:46)
[2019-02-15] MEDS: SPIRONOLACTONE 25 MG TAB PO SCH (20:46)
[2019-02-15] MEDS: traMADol 50 MG TAB PO SCH (20:48)
[2019-02-15 22:00] VITALS: BP 108/61
[2019-02-15] MEDS: IPRATROPIUM 0.5MG/ALBUTEROL 2.5MG INH SOL UD 3ML (DUONEB)(J7620) NEB SCH (22:02)
[2019-02-15] MEDS: METAXALONE 800 MG TABLET PO SCH (22:28)
[2019-02-16] MEDS: IPRATROPIUM 0.5MG/ALBUTEROL 2.5MG INH SOL UD 3ML (DUONEB)(J7620) NEB SCH ×4 (03:35→20:36)
[2019-02-16 06:00] VITALS: BP 119/67
[2019-02-16] MEDS: METAXALONE 800 MG TABLET PO SCH ×3 (06:15→20:59)
[2019-02-16] MEDS: traMADol 50 MG TAB PO SCH ×3 (06:15→23:12)
[2019-02-16] MEDS: LEVOTHYROXINE 125MCG TABLET (0.125MG) PO SCH (06:15)
[2019-02-16] MEDS: ACETAMINOPHEN TAB 650MG DOSE (2X325MG) PO PRN ×2 (06:22→23:17)
[2019-02-16 07:08] LABS: HEMOGLOBIN 13.6 g/dl (12.0-15.5); MEAN CORPUSCULAR HEMOGLOBIN 29.8 pg (27.0-33.0); MEAN CORPUSCULAR HGB CONC 31.6 g/dl (32.0-36.5); MEAN CORPUSCULAR VOLUME 94.1 fl (80.0-96.0); PLATELET COUNT, AUTOMATED 328 10^3/uL (150-450); RED BLOOD COUNT 4.57 10^6/uL (4.00-5.40); WHITE BLOOD COUNT 12.8 10^3/uL (4.0-10.0)
[2019-02-16 07:45] LABS: BLOOD UREA NITROGEN 14 MG/DL (7-18); CALCIUM LEVEL 8.5 MG/DL (8.5-10.1); CARBON DIOXIDE LEVEL 34 MEQ/L (21-32); CHLORIDE LEVEL 99 MEQ/L (98-107); CREATININE FOR GFR 0.92 MG/DL (0.55-1.30); GLOMERULAR FILTRATION RATE > 60.0 (>51); GLUCOSE, FASTING 95 MG/DL (70-100); POTASSIUM SERUM 2.6 MEQ/L (3.5-5.1); SODIUM LEVEL 138 MEQ/L (136-145)
[2019-02-16] MEDS ORDERED: POTASSIUM CHLORIDE 10 MEQ SR TABLET PO ONE ×3 (08:00→17:00)
[2019-02-16] MEDS: ENOXAPARIN 40 MG/0.4 ML SYRINGE (J1650) SC SCH (08:09)
[2019-02-16] MEDS: carBAMazepine XR 200 MG TAB PO SCH ×2 (08:09→20:59)
[2019-02-16] MEDS: CitaloPRAM (CeleXA) 20 MG TAB PO SCH (08:09)
[2019-02-16] MEDS: FUROSEMIDE 80 MG TAB PO SCH ×2 (08:10→17:02)
[2019-02-16] MEDS: LISINOPRIL 10 MG TAB PO SCH (08:10)
[2019-02-16] MEDS: SPIRONOLACTONE 25 MG TAB PO SCH ×2 (08:10→20:58)
[2019-02-16] MEDS: CARVedilol 6.25 MG TAB PO SCH ×2 (08:10→20:59)
[2019-02-16] MEDS: NICOTINE 14 MG/24 HR TRANSDERMAL TD SCH (08:11)
[2019-02-16] MEDS ORDERED: IPRA0.00 NEB (10:26)
[2019-02-16] MEDS ORDERED: PROV108A INH (10:26)
--- NOTE | 2019-02-16 13:28 | IPNPDOC ---
Subjective Date Seen The patient was seen on 02/16/19. Subjective Chief Complaint/HPI feeling much better this am. SOb much improved. cough better. She says that she does not have any inhaler or nebulizer at home. She uses her grand daughters nebulizer when she needs it. No fever or chills, no chest pain , no abdominal pain , nausea or vomiting. Objective Physical Examination General Exam: Positive: Alert, Cooperative, No Acute Distress, Other (Morbidly obese) Eye Exam: Positive: PERRLA, Conjunctiva & lids normal, EOMI; Negative: Sclera icteric ENT Exam: Positive: Atraumatic, Mucous membr. moist/pink, Pharynx Normal, Other ENT (copious hacking green mucus that she expectorates into tissue); Negative: Pharyngeal Edema, Nares Patent Neck Exam: Positive: Supple, Other (thick); Negative: JVD, thyromegaly, +2 carotid pulse wo bruit, Lymphadenopathy Chest Exam: Positive: Rales (bilateral posterior with clear apices), Rhonchi, Wheezing Heart Exam: Positive: Rate Normal, Regular Rhythm, Normal S1, Normal S2; Negative: Murmurs, Rubs Abdomen Exam: Positive: Normal bowel sounds, Soft, Tenderness, Other (morbid biopsy); Negative: Hepatospenomegaly, Mass Extremity Exam: Positive: Normal pulses; Negative: Clubbing, Cyanosis, Edema, Tenderness, Swelling Skin Exam: Positive: Nl turgor and temperature; Negative: Rash, Breakdown, Lesion Neuro Exam: Positive: Normal Speech, Strength at 5/5 X4 ext, Normal Tone, Sensation Intact, Cranial Nerves 3-12 NL Psych Exam: Positive: Mental status NL, Mood NL, Oriented x 3 Assessment /Plan Assessment 53 yo woman with a history of smoking, COPD, FELI non compliant with CPAP, morbid obesity with a history of 3 weeks of an increasingly productive cough, episodic fever, chills with leukocytosis, hypoxemia and chest xray with RML and RLL opacities c/w community acquired pneumonia now on ceftriaxone/azithromycin with pending blood and sputum cultures, with supporting COPD nebs and oxygen therapy, while continuing all her other medications. Community acquired pneumonia: CXR with RML and RLL opacities, started on empiric ceftriaxone 2g Q24, and azithromycin IV hypoxemia, continue oxygen therapy to goal 88-92% in patient with COPD follow up blood and sputum cultures procalcitonin urine legionella and strep antigens incentive spirometry COPD/asthma duonebs Q6H while awake albuterol nebs Q4H PRN for wheezing FELI: refusing CPAP will wear nasal canula Smoking: discussed quitting at length for 10 min as it is contributing to a poor pulmonary reserve Will think about quitting, has cut back while she has been ill nicotine patch at 14mg/24h Morbid obesity: discussed how it is negative affecting her pulmonary status and her sleep and that the high likelihood that she may have a combination of FELI and obesity hypoventilation syndrome, which negative effect the heart and functional status in general a1c was 5.5 today will defer nutrition to liaise with PCP as an outpatient CHF: coreg 6.25 BID lasix 160 BID lisinopril 10 QD Aldactone 25 QD Hypokalemia replaced will recheck int the pm. Hyperlipidemia: pravastatin 40 QD Chronic pain: Tramadol 50 Q8H Metaxolone GERD: protonix 40 QD Psych: Citalopram 40 History of papillary thyroid CA s/p thyroidectomy: continue synthroid DVT prophylaxis: Lovenox Diet: cardiac VS, I&O, 24H, Fishbone Vital Signs/I&O Vital Signs Date Time Temp Pulse Resp B/P (MAP) Pulse Ox O2 Delivery O2 Flow Rate FiO2 02/16/19 09:00 3.0 02/16/19 08:10 122/70 02/16/19 08:10 82 02/16/19 06:15 18 02/16/19 06:00 97.5 89 Nasal Cannula I&O- Last 24 Hours up to 6 AM 02/16/19 06:00 Intake Total 605 ml Output Total 370 ml Balance 235 ml Laboratory Data 24H LABS Laboratory Tests 2 02/15/19 20:02: 02/15/19 20:03: Methicillin-Resist S.aureus DNA PCR NOT DETECTED 02/16/19 06:15: Nucleated Red Blood Cells % (auto) 0.0, Anion Gap 5L, Glomerular Filtration Rate > 60.0, Calcium Level 8.5 CBC/BMP Laboratory Tests 02/16/19 06:15 Microbiology Microbiology 02/15/19 Blood Culture, Received Pending 02/15/19 Gram Stain - Final, Resulted 02/15/19 Sputum Culture, Resulted Pending 02/15/19 Blood Culture, Received Pending MINNIE STREETER MD Feb 16, 2019 13:28
[2019-02-16 14:00] VITALS: BP 148/60
[2019-02-16] MEDS ORDERED: cefTRIAXone SOD 2 GM in D5W MINI-BAG PLUS 50 ML IV SCH (14:00)
[2019-02-16] MEDS ORDERED: AZITHROMYCIN INJ 500 MG, VIAL MATE ADAPTER 1 EACH in D5W 250 ML IV SCH (16:00)
[2019-02-16] MEDS: POTASSIUM CHLORIDE 10 MEQ SR TABLET PO SCH (20:58)
[2019-02-16] MEDS: PRAVASTATIN 20 MG TAB PO SCH (20:58)
[2019-02-16] MEDS: PANTOPRAZOLE 40MG TAB (PROTONIX) PO SCH (21:00)
[2019-02-17] MEDS: IPRATROPIUM 0.5MG/ALBUTEROL 2.5MG INH SOL UD 3ML (DUONEB)(J7620) NEB SCH ×4 (02:00→19:07)
[2019-02-17] MEDS: METAXALONE 800 MG TABLET PO SCH ×3 (06:32→22:01)
[2019-02-17] MEDS: traMADol 50 MG TAB PO SCH ×3 (06:32→22:02)
[2019-02-17] MEDS: LEVOTHYROXINE 125MCG TABLET (0.125MG) PO SCH (06:32)
[2019-02-17 07:07] LABS: HEMATOCRIT 42.4 % (36.0-47.0); HEMOGLOBIN 13.7 g/dl (12.0-15.5); MEAN CORPUSCULAR HEMOGLOBIN 30.2 pg (27.0-33.0); MEAN CORPUSCULAR HGB CONC 32.3 g/dl (32.0-36.5); MEAN CORPUSCULAR VOLUME 93.6 fl (80.0-96.0); PLATELET COUNT, AUTOMATED 350 10^3/uL (150-450); RED BLOOD COUNT 4.53 10^6/uL (4.00-5.40); WHITE BLOOD COUNT 11.6 10^3/uL (4.0-10.0)
[2019-02-17 07:29] LABS: BLOOD UREA NITROGEN 10 MG/DL (7-18); CALCIUM LEVEL 8.5 MG/DL (8.5-10.1); CARBON DIOXIDE LEVEL 32 MEQ/L (21-32); CHLORIDE LEVEL 101 MEQ/L (98-107); CREATININE FOR GFR 0.89 MG/DL (0.55-1.30); GLOMERULAR FILTRATION RATE > 60.0 (>51); GLUCOSE, FASTING 100 MG/DL (70-100); POTASSIUM SERUM 3.3 MEQ/L (3.5-5.1); SODIUM LEVEL 138 MEQ/L (136-145)
[2019-02-17] MEDS ORDERED: AZIT500T5 PO (07:45)
[2019-02-17] MEDS ORDERED: CEFD300CAP PO (07:45)
[2019-02-17] MEDS ORDERED: KLOR10TA76 PO (07:49)
[2019-02-17] MEDS: ENOXAPARIN 40 MG/0.4 ML SYRINGE (J1650) SC SCH (09:55)
[2019-02-17] MEDS: carBAMazepine XR 200 MG TAB PO SCH ×2 (10:06→20:47)
[2019-02-17] MEDS: SPIRONOLACTONE 25 MG TAB PO SCH ×2 (10:06→20:47)
[2019-02-17] MEDS: FUROSEMIDE 80 MG TAB PO SCH ×2 (10:08→15:59)
[2019-02-17] MEDS: POTASSIUM CHLORIDE 10 MEQ SR TABLET PO SCH ×2 (10:09→20:47)
[2019-02-17] MEDS: LISINOPRIL 10 MG TAB PO SCH (10:10)
[2019-02-17] MEDS: CitaloPRAM (CeleXA) 20 MG TAB PO SCH (10:11)
[2019-02-17] MEDS: NICOTINE 14 MG/24 HR TRANSDERMAL TD SCH (10:12)
[2019-02-17] MEDS: CARVedilol 6.25 MG TAB PO SCH ×2 (10:12→20:46)
[2019-02-17 11:09] VITALS: BP 122/61
[2019-02-17 13:09] VITALS: BP 134/84
--- NOTE | 2019-02-17 13:36 | IPNPDOC ---
Subjective Date Seen The patient was seen on 02/17/19. Subjective Chief Complaint/HPI Feels good this morning and wants to go home. However still very hypoxic at room air though asymptomatic. Objective Physical Examination General Exam: Positive: Alert, Cooperative, No Acute Distress, Other (Morbidly obese) Eye Exam: Positive: PERRLA, Conjunctiva & lids normal, EOMI; Negative: Sclera icteric ENT Exam: Positive: Atraumatic, Mucous membr. moist/pink, Pharynx Normal, Other ENT (copious hacking green mucus that she expectorates into tissue); Negative: Pharyngeal Edema, Nares Patent Neck Exam: Positive: Supple, Other (thick); Negative: JVD, thyromegaly, +2 carotid pulse wo bruit, Lymphadenopathy Chest Exam: Positive: Rales (bilateral posterior with clear apices), Rhonchi, Wheezing Heart Exam: Positive: Rate Normal, Regular Rhythm, Normal S1, Normal S2; Negative: Murmurs, Rubs Abdomen Exam: Positive: Normal bowel sounds, Soft, Tenderness, Other (morbid biopsy); Negative: Hepatospenomegaly, Mass Extremity Exam: Positive: Normal pulses; Negative: Clubbing, Cyanosis, Edema, Tenderness, Swelling Skin Exam: Positive: Nl turgor and temperature; Negative: Rash, Breakdown, Lesion Neuro Exam: Positive: Normal Speech, Strength at 5/5 X4 ext, Normal Tone, Sensation Intact, Cranial Nerves 3-12 NL Psych Exam: Positive: Mental status NL, Mood NL, Oriented x 3 Assessment /Plan Assessment 53 yo woman with a history of smoking, COPD, FELI non compliant with CPAP, morbid obesity with a history of 3 weeks of an increasingly productive cough, episodic fever, chills with leukocytosis, hypoxemia and chest xray with RML and RLL opacities c/w community acquired pneumonia now on ceftriaxone/azithromycin with pending blood and sputum cultures, with supporting COPD nebs and oxygen therapy, while continuing all her other medications. Community acquired pneumonia: CXR with RML and RLL opacities, started on empiric ceftriaxone 2g Q24, and azithromycin IV hypoxemia, continue oxygen therapy to goal 88-92% in patient with COPD follow up blood and sputum cultures procalcitonin urine legionella and strep antigens incentive spirometry Hypoxia hypoxic to 80% at rest on room air without any distress or tachypnea. This suggests that patient probably has chronic hypoxia will get ABG to see if she has CO2 retention also or not patient does have FELI but probably also has Obesity hypoventilation and chronic respiratory failure. doing OK on 1 liter at rest. will continue to try to wean off oxygen COPD with probable chronic respiratory failure with hypoxia and hypercarbia as has elevated bicarb in blood ans hypoxia without any overt symptoms. ordered ABG. duonebs Q6H while awake albuterol nebs Q4H PRN for wheezing FELI: refusing CPAP will wear nasal canula Smoking: discussed quitting at length for 10 min as it is contributing to a poor pulmonary reserve Will think about quitting, has cut back while she has been ill nicotine patch at 14mg/24h Morbid obesity: discussed how it is negative affecting her pulmonary status and her sleep and that the high likelihood that she may have a combination of FELI and obesity hypoventilation syndrome, which negative effect the heart and functional status in general a1c was 5.5 today will defer nutrition to liaise with PCP as an outpatient CHF: coreg 6.25 BID lasix 160 BID lisinopril 10 QD Aldactone 25 QD Hypokalemia replaced will recheck int the pm. Hyperlipidemia: pravastatin 40 QD Chronic pain: Tramadol 50 Q8H Metaxolone GERD: protonix 40 QD Psych: Citalopram 40 History of papillary thyroid CA s/p thyroidectomy: continue synthroid DVT prophylaxis: Lovenox Diet: cardiac Plan/VTE VTE Prophylaxis Ordered?: Yes VS, I&O, 24H, Fishbone Vital Signs/I&O Vital Signs Date Time Temp Pulse Resp B/P (MAP) Pulse Ox O2 Delivery O2 Flow Rate FiO2 02/17/19 13:09 76 134/84 (101) 91 Nasal Cannula 1.0 02/17/19 11:09 97.8 16 I&O- Last 24 Hours up to 6 AM 02/17/19 06:00 Intake Total 1790 ml Output Total 1200 ml Balance 590 ml Laboratory Data 24H LABS Laboratory Tests 2 02/17/19 06:28: Nucleated Red Blood Cells % (auto) 0.0, Anion Gap 5L, Glomerular Filtration Rate > 60.0, Calcium Level 8.5 CBC/BMP Laboratory Tests 02/16/19 15:28 02/17/19 06:28 Microbiology Microbiology 02/15/19 Blood Culture - Preliminary, Resulted No growth after 24 hours . All specim... 02/15/19 Gram Stain - Final, Resulted 02/15/19 Sputum Culture - Preliminary, Resulted Yeast Like Organism 02/15/19 Blood Culture - Preliminary, Resulted No Growth after 48 hours. All Specime... MINNIE STREETER MD Feb 17, 2019 13:36
[2019-02-17 14:26] LABS: ABG BASE EXCESS 4.1 (-2.0-2.0); ABG HCO3 30.4 MEQ/L (22.0-26.0); ABG O2 SATURATION 89.6 % (95.0-99.0); ABG PARTIAL PRESSURE CO2 52.4 mmHg (35.0-45.0); ABG PARTIAL PRESSURE O2 59.6 mmHg (75.0-100.0); ABG STANDARD HCO3 27.9 MEQ/L (22.0-26.0); ABG TOTAL CO2 32.1 MEQ/L (22.0-29.0); ABG pH (ARTERIAL) 7.382 UNITS (7.350-7.450)
[2019-02-17] MEDS ORDERED: cefTRIAXone SOD 2 GM in D5W MINI-BAG PLUS 50 ML IV SCH (15:00)
[2019-02-17] MEDS ORDERED: AZITHROMYCIN INJ 500 MG, VIAL MATE ADAPTER 1 EACH in D5W 250 ML IV SCH (16:00)
[2019-02-17] MEDS: PRAVASTATIN 20 MG TAB PO SCH (20:47)
[2019-02-17] MEDS: PANTOPRAZOLE 40MG TAB (PROTONIX) PO SCH (20:47)
[2019-02-17 22:00] VITALS: BP 110/82
[2019-02-17] MEDS: ACETAMINOPHEN TAB 650MG DOSE (2X325MG) PO PRN (22:02)
[2019-02-18] MEDS: IPRATROPIUM 0.5MG/ALBUTEROL 2.5MG INH SOL UD 3ML (DUONEB)(J7620) NEB SCH ×3 (02:00→14:07)
[2019-02-18 06:00] VITALS: BP 139/89
[2019-02-18 06:32] LABS: HEMATOCRIT 42.7 % (36.0-47.0); HEMOGLOBIN 13.8 g/dl (12.0-15.5); MEAN CORPUSCULAR HEMOGLOBIN 30.5 pg (27.0-33.0); MEAN CORPUSCULAR HGB CONC 32.3 g/dl (32.0-36.5); MEAN CORPUSCULAR VOLUME 94.3 fl (80.0-96.0); PLATELET COUNT, AUTOMATED 336 10^3/uL (150-450); RED BLOOD COUNT 4.53 10^6/uL (4.00-5.40); WHITE BLOOD COUNT 9.8 10^3/uL (4.0-10.0)
[2019-02-18] MEDS: LEVOTHYROXINE 125MCG TABLET (0.125MG) PO SCH (06:33)
[2019-02-18] MEDS: METAXALONE 800 MG TABLET PO SCH (06:33)
[2019-02-18] MEDS: traMADol 50 MG TAB PO SCH (06:34)
[2019-02-18 07:04] LABS: BLOOD UREA NITROGEN 11 MG/DL (7-18); CALCIUM LEVEL 8.7 MG/DL (8.5-10.1); CARBON DIOXIDE LEVEL 32 MEQ/L (21-32); CHLORIDE LEVEL 105 MEQ/L (98-107); CREATININE FOR GFR 0.92 MG/DL (0.55-1.30); GLOMERULAR FILTRATION RATE > 60.0 (>51); GLUCOSE, FASTING 97 MG/DL (70-100); POTASSIUM SERUM 3.3 MEQ/L (3.5-5.1); SODIUM LEVEL 142 MEQ/L (136-145)
[2019-02-18] MEDS: ENOXAPARIN 40 MG/0.4 ML SYRINGE (J1650) SC SCH (08:48)
[2019-02-18] MEDS: POTASSIUM CHLORIDE 10 MEQ SR TABLET PO SCH (08:48)
[2019-02-18] MEDS: carBAMazepine XR 200 MG TAB PO SCH (08:53)
[2019-02-18] MEDS: SPIRONOLACTONE 25 MG TAB PO SCH (08:53)
[2019-02-18] MEDS: LISINOPRIL 10 MG TAB PO SCH (08:53)
[2019-02-18] MEDS: CitaloPRAM (CeleXA) 20 MG TAB PO SCH (08:53)
[2019-02-18] MEDS: FUROSEMIDE 80 MG TAB PO SCH (08:53)
[2019-02-18 08:54] VITALS: BP 130/77
[2019-02-18] MEDS: CARVedilol 6.25 MG TAB PO SCH (08:54)
[2019-02-18] MEDS: NICOTINE 14 MG/24 HR TRANSDERMAL TD SCH (08:55)
[2019-02-18 10:41] VITALS: BP 122/61
[2019-02-18] MEDS ORDERED: PROV108A INH (13:38)
[2019-02-19 00:07] LABS: BODY FLUID CULTURE Not Indicated (.); LEGIONELLA ANTIGEN URINE Negative (Negative); ORGANISM ID Not indicated. (.); SPECIMEN SOURCE Urine (.); URINE STREP PNEUMONIAE ANTIGEN Negative (Negative)
--- NOTE | 2019-02-19 16:02 | DS.PDOC ---
Discharge Summary General Date of Admission Feb 15, 2019 at 15:56 Date of Discharge 02/18/19 Discharge Summary PROCEDURES PERFORMED DURING STAY: [None]. DISCHARGE DIAGNOSES: community acquired hemophillus influenzae pneumonia chronic respiratory faiure with hypoxia dn hypercarbia obesity hypoventilation FELI non compliant with CPAP COPD possibly pulmonary hypertension Morbid obesity CHF unspecified type GIRD Hyperlipidemia depression chronic pain Hypokalemia History of papillary thyroid CA s/p thyroidectomy Smoker COMPLICATIONS/CHIEF COMPLAINT: Rll Pneumonia; Rml Pneumonia. HISTORY OF PRESENT ILLNESS: See history and physical HOSPITAL COURSE: 53 yo woman with a history of smoking, COPD, FELI non compliant with CPAP, morbid obesity with a history of 3 weeks of an increasingly productive cough, episodic fever, chills with leukocytosis, hypoxemia and chest xray with RML and RLL opacities c/w community acquired pneumonia was on ceftriaxone/azithromycin then changed to cefdinir and azithromycin. In hospital noted to be persistently hypoxemic to 80% 83% at rest without any symptoms in room air. ABG showed chronic respiratory failure with hypoxia and hypercarbia. Community acquired pneumonia: CXR with RML and RLL opacities, continue Cefdinir and azithromycin. hypoxemia, continue oxygen therapy to goal 88-92% follow up blood negative till date. Sputum grew hemophillus inflenzae urine Legionella and strep antigens negative incentive spirometry Hypoxia hypoxic to 80% at rest on room air without any distress or tachypnea. This suggests that patient probably has chronic hypoxia patient does have EFLI but probably also has Obesity hypoventilation and chronic respiratory failure. doing OK on 1 liter at rest. Chronic respiratory failure with hypoxia and hypercarbia and possibly severe pulinary hypertension. probably a combination of Obesity hypoventilation, untreated FELI and COPD vs chronic asthma needs referral to pulmonary. have prescribed patient home oxygen which is is unhappy about using as says she does not feel any short of breath even if her O2 is 80%. COPD duonebs Q6H while awake albuterol nebs Q4H PRN for wheezing needs to see pulmonary FELI: Had sleep study done with dr mcgill this year but did not go for a follow up for fitting the CPAP machine discussed the improtance of getting the machine fitted and to use it with daughter and patient. Smoking: discussed quitting at length for 10 min as it is contributing to a poor pulmonary reserve Will think about quitting, has cut back while she has been ill Morbid obesity: discussed how it is negative affecting her pulmonary status and her sleep and that the high likelihood that she may have a combination of FELI and obesity hypoventilation syndrome, which negative effect the heart and functional status in general a1c was 5.5 today will defer nutrition to liaise with PCP as an outpatient CHF: coreg 6.25 BID lasix 160 BID lisinopril 10 QD Aldactone 25 QD Hypokalemia replaced will recheck int the pm. Hyperlipidemia: pravastatin 40 QD Chronic pain: Tramadol 50 Q8H Metaxolone GERD: protonix 40 QD Psych: Citalopram 40 History of papillary thyroid CA s/p thyroidectomy: continue synthroid DISCHARGE MEDICATIONS: Please see below. ALLERGIES: Please see below. PHYSICAL EXAMINATION ON DISCHARGE: VITAL SIGNS: Please see below. General Exam: Positive: Alert, Cooperative, No Acute Distress, Other (Morbidly obese) Eye Exam: Positive: PERRLA, Conjunctiva & lids normal, EOMI; Negative: Sclera icteric ENT Exam: Positive: Atraumatic, Mucous membr. moist/pink, Pharynx Normal, Other ENT (copious hacking green mucus that she expectorates into tissue); Negative: Pharyngeal Edema, Nares Patent Neck Exam: Positive: Supple, Other (thick); Negative: JVD, thyromegaly, +2 carotid pulse wo bruit, Lymphadenopathy Chest Exam: Positive: Rales (bilateral posterior with clear apices), Rhonchi, Wheezing Heart Exam: Positive: Rate Normal, Regular Rhythm, Normal S1, Normal S2; Negative: Murmurs, Rubs Abdomen Exam: Positive: Normal bowel sounds, Soft, Tenderness, Other (morbid biopsy); Negative: Hepatospenomegaly, Mass Extremity Exam: Positive: Normal pulses; Negative: Clubbing, Cyanosis, Edema, Tenderness, Swelling Skin Exam: Positive: Nl turgor and temperature; Negative: Rash, Breakdown, Lesion Neuro Exam: Positive: Normal Speech, Strength at 5/5 X4 ext, Normal Tone, Sensation Intact, Cranial Nerves 3-12 NL Psych Exam: Positive: Mental status NL, Mood NL, Oriented x 3 LABORATORY DATA: Please see below. ACTIVITY: [As tolerated]. DIET: As tolerated DISPOSITION: 01 Home, Self-Care. DISCHARGE INSTRUCTIONS: Follow up PMD in 1 week Needs referral for sleep study Needs referral to pulmonary for chronic respiratory failure. DISCHARGE CONDITION: [Stable]. TIME SPENT ON DISCHARGE: 40 minutes. Vital Signs/I&Os Vital Signs Date Time Temp Pulse Resp B/P (MAP) Pulse Ox O2 Delivery O2 Flow Rate FiO2 02/18/19 11:35 89 Nasal Cannula 2.0 02/18/19 10:41 98.3 72 24 122/61 (81) I&O- Last 24 Hours up to 6 AM 02/19/19 06:00 Intake Total 900 ml Balance 900 ml Laboratory Data CBC/BMP Item Value Date Time White Blood Count 9.8 10^3/uL 02/18/19 0616 Red Blood Count 4.53 10^6/uL 02/18/19 0616 Hemoglobin 13.8 g/dl 02/18/19 0616 Hematocrit 42.7 % 02/18/19 0616 Mean Corpuscular Volume 94.3 fl 02/18/19 0616 Mean Corpuscular Hemoglobin 30.5 pg 02/18/19 0616 Mean Corpuscular Hemoglobin Concent 32.3 g/dl 02/18/19 0616 Red Cell Distribution Width 15.4 % H 02/18/19 0616 Platelet Count 336 10^3/uL 02/18/19 0616 Sodium Level 142 MEQ/L 02/18/19 0616 Potassium Level 3.3 MEQ/L L 02/18/19 0616 Chloride Level 105 MEQ/L 02/18/19 0616 Carbon Dioxide Level 32 MEQ/L 02/18/19 0616 Anion Gap 5 MEQ/L L 02/18/19 0616 Blood Urea Nitrogen 11 MG/DL 02/18/19 0616 Creatinine 0.92 MG/DL 02/18/19 0616 Glomerular Filtration Rate > 60.0 02/18/19 0616 Fasting Glucose 97 MG/DL 02/18/19 0616 Calcium Level 8.7 MG/DL 02/18/19 0616 Microbiology Microbiology 02/15/19 Blood Culture - Preliminary, Resulted No Growth after 72 hours. All specime... 02/15/19 Gram Stain - Final, Complete 02/15/19 Sputum Culture - Final, Complete Haemophilus Influenzae Yeast Like Organism 02/15/19 Blood Culture - Preliminary, Resulted No Growth after 72 hours. All specime... Discharge Medications Scheduled Azithromycin (Azithromycin) 500 Mg Tablet, 500 MG PO DAILY Carbamazepine (Carbamazepine ER) 400 Mg Tab.er.12h, 800 MG PO BID, (Reported) Carvedilol (Carvedilol) 6.25 Mg Tablet, 6.25 MG PO BID, (Reported) Cefdinir (Cefdinir) 300 Mg Capsule, 300 MG PO BID Citalopram Hydrobromide (Citalopram HBr) 40 Mg Tablet, 40 MG PO DAILY, (Reported) Furosemide (Furosemide) 80 Mg Tablet, 160 MG PO BID, (Reported) Ipratropium/Albuterol Sulfate (Iprat-Albut 0.5-3(2.5) mg/3 ml) 3 Ml Ampul.neb, 1 VIAL NEB BID Levothyroxine Sodium (Levothyroxine Sodium) 125 Mcg Tablet, 125 MCG PO DAILY, (Reported) Lisinopril (Lisinopril) 10 Mg Tablet, 10 MG PO DAILY, (Reported) Melatonin (Melatonin) 5 Mg Tablet, 5 MG PO QHS, (Reported) Metaxalone (Metaxalone) 800 Mg Tablet, 800 MG PO Q8H, (Reported) Pantoprazole Sodium (Pantoprazole Sodium) 40 Mg Tablet.dr, 40 MG PO QHS, (Reported) Potassium Chloride (Klor-Con M10) 10 Meq Tab.er.prt, 10 MEQ PO DAILY Pravastatin Sodium (Pravastatin Sodium) 40 Mg Tablet, 40 MG PO QHS, (Reported) Spironolactone (Spironolactone) 25 Mg Tablet, 25 MG PO BID, (Reported) Tapentadol HCl (Nucynta) 75 Mg Tablet, 75 MG PO Q8H, (Reported) Scheduled PRN Acetaminophen (Tylenol) 325 Mg Tablet, 650 MG PO QHS PRN for PAIN, (Reported) Albuterol Sulfate (Proventil Hfa) 6.7 Gm Hfa.aer.ad, 2 PUFF INH Q4H PRN for WHEEZING Fluticasone Propionate (Flonase Allergy Relief) 9.9 Ml [place].susp, 2 SPRAY NA DAILY PRN for ALLERGIES, (Reported) Allergies Coded Allergies: No Known Allergies (Unverified , 02/15/19) MINNIE STREETER MD Feb 19, 2019 16:02
== END 2019-02-18 14:06 | disposition home or self-care (01) | DRG 194 ==
LOC: M ED 12:27 → M ED INP 15:56 → M MSPAV 18:38
PROVIDERS: ADMIT Internal Medicine; ATTEND Internal Medicine Nephrology
DX: J14 Pneumonia due to Hemophilus influenzae (principal); J44.0 Chronic obstructive pulmonary disease with (acute) lower respiratory infection; Z68.42 Body mass index [BMI] 45.0-49.9, adult; E66.2 Morbid (severe) obesity with alveolar hypoventilation; J96.11 Chronic respiratory failure with hypoxia; J96.12 Chronic respiratory failure with hypercapnia; I50.9 Heart failure, unspecified; I11.0 Hypertensive heart disease with heart failure; K21.9 Gastro-esophageal reflux disease without esophagitis; F32.9 Major depressive disorder, single episode, unspecified; F17.200 Nicotine dependence, unspecified, uncomplicated; E78.5 Hyperlipidemia, unspecified; G47.33 Obstructive sleep apnea (adult) (pediatric); Z91.19 Patient's noncompliance with other medical treatment and regimen; I27.20 Pulmonary hypertension, unspecified; E87.6 Hypokalemia; G89.29 Other chronic pain; Z85.850 Personal history of malignant neoplasm of thyroid; Z79.899 Other long term (current) drug therapy

== ENCOUNTER → 2019-02-15 | Outpatient (CLI) | payer MEDICARE ==
[~2019-02-15] MED LIST changes: +ACET-907 PO; +CARB400T4 PO; +CARV6.25 PO; +CITA40TA4 PO; +FLON1SPR; +FLUTISP INH; +FURO80TA2 PO; +IPRA0.00 NEB; +LEVO125T4 PO; +LISI10TA4 PO; +MELA1TAB9 PO; +META1TAB22 PO; +NUCY75TA11 PO; +PANT-23 PO; +PANT40TA3 PO; +PRAV40TA2 PO; +PROV108A INH
--- NOTE | 2019-02-15 12:01 | REP ---
Chest x-ray: Two views. History: Cough. Comparison chest x-ray: July 17, 2017. Findings: There are surgical clips in the soft tissues of the neck bilaterally consistent with previous thyroidectomy. There are some increased markings overlying the heart on the lateral film and overlying the spine on the lateral film suggesting infiltrate. This is difficult to localize on the frontal view but may be in the right middle lobe and lower lobe. Remaining lung valentin are clear. Heart is not enlarged. Pleural angles are sharp. Impression: Infiltrates in the middle lobe and lower lobe distribution on lateral film, probably right-sided; consistent with pneumonia. Otherwise no acute disease. Electronically Signed by Nic Morel MD 02/15/2019 11:52 A
== END ==
LOC: M RAD 11:36
PROVIDERS: ATTEND Nurse Practitioner Adult Health
DX: R91.8 Other nonspecific abnormal finding of lung field (principal); R05 Cough

== ENCOUNTER → 2019-02-26 | Outpatient (CLI) | payer MEDICARE ==
[~2019-02-26] MED LIST changes: +ACET-907 PO; +AZIT500T5 PO; +CARB400T4 PO; +CARV6.25 PO; +CEFD300CAP PO; +CITA40TA4 PO; +FLON1SPR; +FLUTISP INH; +FURO80TA2 PO; +IPRA0.00 NEB; +KLOR10TA76 PO; +LEVO125T4 PO; +LISI10TA4 PO; +MELA1TAB9 PO; +META1TAB22 PO; +NUCY75TA11 PO; +PANT-23 PO; +PANT40TA3 PO; +PRAV40TA2 PO; +PROV108A INH
--- NOTE | 2019-02-26 15:16 | REP ---
REASON FOR EXAM: History of community acquired pneumonia. COMPARISON: 02/15/2019. The patchy basilar opacities seen on the prior exam particularly in the right middle and lower lobe have cleared. The lung valentin are clear and the pleural angles are sharp. The cardiomediastinal silhouette is unchanged. The osseous structures are stable and intact. IMPRESSION: No acute cardiopulmonary disease. Findings as described above. Electronically Signed by Walter Craig DO 02/26/2019 03:29 P
== END ==
LOC: M RAD 11:59
PROVIDERS: ATTEND Nurse Practitioner Adult Health
DX: J14 Pneumonia due to Hemophilus influenzae (principal); F17.210 Nicotine dependence, cigarettes, uncomplicated
CPT/HCPCS: 71046; 99406; 99495; G0463

== ENCOUNTER → 2019-06-18 | Outpatient (CLI) | payer MEDICARE ==
--- NOTE | 2019-06-18 13:40 | REPPI ---
RIGHT FOOT, FOUR VIEWS: Four views of the right foot performed. There is no acute fracture or dislocation. There is mild joint space narrowing and subchondral sclerosis at the first metatarsal phalangeal joint. I see no other significant finding. IMPRESSION: Mild degenerative changes first metatarsal phalangeal joint. Electronically Signed by Leonidas Keene MD 06/22/2019 03:54 P
[2019-06-18 15:36] LABS: HEMOGLOBIN 13.7 g/dl (12.0-15.5); MEAN CORPUSCULAR HEMOGLOBIN 29.8 pg (27.0-33.0); MEAN CORPUSCULAR HGB CONC 31.9 g/dl (32.0-36.5); MEAN CORPUSCULAR VOLUME 93.7 fl (80.0-96.0); PLATELET COUNT, AUTOMATED 354 10^3/uL (150-450); RED BLOOD COUNT 4.59 10^6/uL (4.00-5.40); WHITE BLOOD COUNT 11.1 10^3/uL (4.0-10.0)
[2019-06-18 15:41] LABS: ALBUMIN 4.3 GM/DL (3.2-5.2); BILIRUBIN,TOTAL 0.2 MG/DL (0.2-1.0); CALCIUM LEVEL 8.7 MG/DL (8.5-10.1); CREATININE FOR GFR 1.1 MG/DL (0.55-1.30); GLOMERULAR FILTRATION RATE 54.9 (>51); POTASSIUM SERUM 4.6 MEQ/L (3.5-5.1); TOTAL PROTEIN 8.5 GM/DL (6.4-8.2); URIC ACID 5.8 MG/DL (2.6-6.0)
[2019-06-18 16:22] LABS: ERYTHROCYTE SEDIMENTATION RATE 30 mm/hr (0-30)
== END ==
LOC: M PLAIMG 12:00
PROVIDERS: ATTEND Nurse Practitioner Family
DX: M19.071 Primary osteoarthritis, right ankle and foot (principal); M79.671 Pain in right foot
CPT/HCPCS: 36415; 73630; 80053; 84550; 85027; 85652; G0463

== ENCOUNTER → 2019-08-25 | Outpatient (REF) | payer MEDICARE ==
[~2019-08-25] MED LIST changes: +CYCL-707 PO; -CYCL10TA PO; +OXYC-1 PO; -OXYC15TA76 PO
[2019-08-25 18:38] LABS: BLOOD UREA NITROGEN 21 MG/DL (7-18); CARBON DIOXIDE LEVEL 38 MEQ/L (21-32); CHLORIDE LEVEL 97 MEQ/L (98-107); CREATININE FOR GFR 0.93 MG/DL (0.55-1.30); GLOMERULAR FILTRATION RATE > 60.0 (>51); GLUCOSE, FASTING 78 MG/DL (70-100); MAGNESIUM LEVEL 2.6 MG/DL (1.8-2.4); POTASSIUM SERUM 4.2 MEQ/L (3.5-5.1); SODIUM LEVEL 138 MEQ/L (136-145)
[2019-08-25 19:49] LABS: TOTAL T3 73.6 NG/DL (60.0-181.0)
== END ==
LOC: M SFHCPLAZ 16:35
PROVIDERS: ATTEND Internal Medicine
DX: R63.5 Abnormal weight gain (principal); I11.0 Hypertensive heart disease with heart failure
CPT/HCPCS: 80048; 83735; 84439; 84443; 84480; G0463

== ENCOUNTER → 2019-11-22 | Outpatient (CLI) | payer MEDICARE, OTHER ==
[~2019-11-22] MED LIST changes: +PANT40TA29 PO; -PANT40TA3 PO
--- NOTE | 2019-12-24 15:16 | SLEEPCENT ---
DATE: 11/22/2019 Nocturnal polysomnography was performed for the titration of pressure therapy in this patient with obstructive sleep apnea syndrome, apnea-hypopnea index of 40. For testing, patient was fit with a [employer] Brevida Nasal Pillows device of medium size. There was 4 of water pressure applied to the circuit, and the lights were extinguished. There was 6 hours and 38 minutes of data reviewed. There were 384.5 minutes of sleep identified. Sleep latency was short at 1.5 minutes. REM latency was mildly prolonged at 135 minutes. Sleep architecture was good with evidence of REM rebound in the mid portion of the study. Overall sleep efficiency was 97.1%. The patient's electrocardiogram showed a sinus rhythm with an average heart rate of 68 beats per minute. EEG showed normal waveforms for wake and sleep. Respiratory events were best palliated with CPAP at a pressure of 13. This pressure was reached late in the study. Some snoring was noted despite CPAP. Despite optimal CPAP pressure, oxygen desaturations prompted the addition of supplemental oxygen through the CPAP circuit. Best sleep was seen during this study on a CPAP pressure of 13 with 4 liters of oxygen bled through the system. Some limb activity was appreciated. Limb movement arousal index was 3.6. IMPRESSION: Obstructive sleep apnea syndrome (G47.33). RECOMMENDATION: Nightly use of pressure therapy at 13 cm of water with 4 liters of oxygen bled through the system. Given the severity of the patient's disease, if clinical response is not forthcoming, a second titration night may be necessary given the persistence of snoring and hypoventilatory events late in the study. MTDD
== END ==
LOC: M SLEEP 20:00
PROVIDERS: ATTEND Physician Assistant
DX: G47.33 Obstructive sleep apnea (adult) (pediatric) (principal)

== ENCOUNTER → 2019-11-26 | Outpatient (REF) | payer MEDICARE, OTHER ==
[2020-01-23 23:15] LABS: ALBUMIN 4.2 GM/DL (3.2-5.2); BILIRUBIN,TOTAL 0.2 MG/DL (0.2-1.0); CREATININE FOR GFR 1.05 MG/DL (0.55-1.30); GLOMERULAR FILTRATION RATE 57.7 (>51); HEMOGLOBIN A1c 6.2 %; POTASSIUM SERUM 4.3 MEQ/L (3.5-5.1); THYROID STIMULATING HORMONE 9.45 uIU/ML (0.358-3.740); TOTAL PROTEIN 8.5 GM/DL (6.4-8.2)
== END ==
LOC: M SFHCPLAZ 09:52
PROVIDERS: ATTEND Nurse Practitioner Adult Health
DX: I10 Essential (primary) hypertension (principal); E89.0 Postprocedural hypothyroidism; Z68.43 Body mass index [BMI] 50.0-59.9, adult
CPT/HCPCS: 36415; 80053; 83036; 84443; G0463

== ENCOUNTER → 2019-12-16 | Outpatient (CLI) | payer MEDICARE, OTHER ==
[2019-12-16 15:58] LABS: HEMATOCRIT 39.5 % (36.0-47.0); HEMOGLOBIN 12.6 g/dl (12.0-15.5); MEAN CORPUSCULAR HEMOGLOBIN 30.2 pg (27.0-33.0); MEAN CORPUSCULAR HGB CONC 31.9 g/dl (32.0-36.5); MEAN CORPUSCULAR VOLUME 94.7 fl (80.0-96.0); PLATELET COUNT, AUTOMATED 326 10^3/uL (150-450); RED BLOOD COUNT 4.17 10^6/uL (4.00-5.40); WHITE BLOOD COUNT 9.7 10^3/uL (4.0-10.0)
[2019-12-16 16:33] LABS: ALBUMIN 3.7 GM/DL (3.2-5.2); ALT/SGPT 25 U/L (12-78); BILIRUBIN,TOTAL 0.1 MG/DL (0.2-1.0); BLOOD UREA NITROGEN 17 MG/DL (7-18); CALCIUM LEVEL 8.4 MG/DL (8.5-10.1); CARBAMAZEPINE (TEGRETOL) LEVEL 12.3 UG/ML (4.0-10.0); CARBON DIOXIDE LEVEL 36 MEQ/L (21-32); CHLORIDE LEVEL 96 MEQ/L (98-107); FREE T4 0.64 NG/DL (0.76-1.46); GLOMERULAR FILTRATION RATE > 60.0 (>51); GLUCOSE, FASTING 75 MG/DL (70-100); POTASSIUM SERUM 4.2 MEQ/L (3.5-5.1); SODIUM LEVEL 137 MEQ/L (136-145); TOTAL PROTEIN 7.9 GM/DL (6.4-8.2)
== END ==
LOC: M PLALAB 13:17
PROVIDERS: ATTEND Family Medicine
DX: G90.8 Other disorders of autonomic nervous system (principal); Z79.899 Other long term (current) drug therapy

== ENCOUNTER → 2020-02-17 | Outpatient (CLI) | payer MEDICARE ==
--- NOTE | 2020-02-17 14:42 | REP ---
INDICATION: SOLITARY PULMONARY NODULE. COMPARISON: None. TECHNIQUE: Low-dose CT lung screening 11/19/2019, chest x-ray 02/26/2019, CT 11/22/2009 FINDINGS: Study again shows an 8 mm nodule in the left upper lobe on image 46 today. There are no other nodules, a parenchymal lung masses or acute infiltrates. There is some minor dependent atelectatic change in the deep sulci of the lower lung zones right greater than left. No effusion, pleural thickening, pleural plaque or calcified plaque nor apical pleural scarring. No pneumothorax. Heart is not enlarged. There is no pericardial thickening or effusion. Calcified aortic arch noted without aneurysm. No pathologic sized mediastinal or hilar adenopathy. No aortic aneurysm identified. There is a tiny hiatal hernia. Sternum, manubrium, medial clavicles, visualized portions scapulae and humeral heads as well as ribs were all unremarkable and no fracture or destructive lesion seen. Spine shows a diffuse degenerative change syndesmophytes and marginal osteophytes but no compression deformity or destructive lesion. The upper abdominal organs included show no acute finding. There is evidence of old granulomatous disease in the liver with some calcifications and a few calcifications in a lymph node adjacent to the pancreatic head and anterior to the vena cava as a calcified node. Spleen is unremarkable. The upper poles kidneys and adrenal glands intact. IMPRESSION: 1. Stable appearance 8 mm nodule in the perihilar left lung, and upon my review of a now available study on 11/22/2009 that nodule measured about 7 mm. This is a nonaggressive benign finding and needs no further follow-up. No other significant or acute finding. <Electronically signed by Loi Hull > 02/17/20 [id number]
== END ==
LOC: M RAD 12:49
PROVIDERS: ATTEND Physician Assistant
DX: R91.1 Solitary pulmonary nodule (principal)

== ENCOUNTER → 2020-11-08 | Outpatient (CLI) | payer MEDICARE ==
[~2020-11-08] MED LIST changes: +LISI10TA22 PO; -LISI10TA4 PO
[2020-11-08 10:22] LABS: BASO # 0.1 10^3/uL (0.0-0.2); BASO % 0.7 % (0.0-1.0); EOS # 0.2 10^3/uL (0.0-0.5); EOS % 2.8 % (0.0-3.0); HEMATOCRIT 40.4 % (36.0-47.0); HEMOGLOBIN 12.5 g/dl (12.0-15.5); LYMPH # 1.8 10^3/uL (1.5-5.0); LYMPH % 20.9 % (24.0-44.0); MEAN CORPUSCULAR HEMOGLOBIN 29.1 pg (27.0-33.0); MEAN CORPUSCULAR HGB CONC 30.9 g/dl (32.0-36.5); MEAN CORPUSCULAR VOLUME 94.2 fl (80.0-96.0); MONO # 0.6 10^3/uL (0.0-0.8); MONO % 6.7 % (2.0-8.0); NEUTROPHILS # 5.8 10^3/uL (1.5-8.5); NEUTROPHILS % 68.3 % (36.0-66.0); PLATELET COUNT, AUTOMATED 338 10^3/uL (150-450); RED BLOOD COUNT 4.29 10^6/uL (4.00-5.40); WHITE BLOOD COUNT 8.5 10^3/uL (4.0-10.0)
[2020-11-08 10:55] LABS: ALBUMIN 4.1 GM/DL (3.2-5.2); ALT/SGPT 31 U/L (12-78); BILIRUBIN,TOTAL 0.3 MG/DL (0.2-1.0); BLOOD UREA NITROGEN 17 MG/DL (7-18); CALCIUM LEVEL 8.7 MG/DL (8.5-10.1); CARBON DIOXIDE LEVEL 37 MEQ/L (21-32); CHLORIDE LEVEL 97 MEQ/L (98-107); CHOLESTEROL LEVEL 252 MG/DL (<200); CHOLESTEROL RISK RATIO 4.941 (<5); CPK CREATINE PHOSPHOKINASE 67 U/L (26-192); CREATININE FOR GFR 0.98 MG/DL (0.55-1.30); FERRITIN 29 NG/ML (8-252); FREE T4 0.71 NG/DL (0.76-1.46); GLOMERULAR FILTRATION RATE > 60.0 (>51); GLUCOSE, FASTING 139 MG/DL (70-100); HDL CHOLESTEROL 51 MG/DL (>40); LDL CHOLESTEROL 161 MG/DL (<100); MAGNESIUM LEVEL 2.6 MG/DL (1.8-2.4); NON-HDL-C 201 MG/DL; NT-PRO BNP 80 PG/ML (<125); POTASSIUM SERUM 4.5 MEQ/L (3.5-5.1); PTH INTACT 99.1 PG/ML (18.5-88.0); SODIUM LEVEL 138 MEQ/L (136-145); TOTAL 25(OH) VITAMIN D 22.2 NG/ML (30.0-100.0); TRIGLYCERIDES LEVEL 198 MG/DL (<150); VITAMIN B12 LEVEL 587 PG/ML (247-911)
[2020-11-08 11:20] LABS: HEMOGLOBIN A1c 6.4 %
[2020-11-09 11:14] LABS: INSULIN LEVEL 37.2 uIU/mL (2.6-24.9); THRYOGLOBULIN ANTIBODIES (ATA) < 1.0 IU/mL (0.0-0.9); THYROGLOBULIN QUANTITATIVE < 0.1 ng/mL (1.5-38.5)
== END ==
LOC: M PLALAB 08:22
PROVIDERS: ATTEND Family Medicine
DX: C73 Malignant neoplasm of thyroid gland (principal); I50.30 Unspecified diastolic (congestive) heart failure; E78.2 Mixed hyperlipidemia; E55.9 Vitamin D deficiency, unspecified; E66.01 Morbid (severe) obesity due to excess calories

== ENCOUNTER → 2020-11-24 | Outpatient (CLI) | payer MEDICARE ==
--- NOTE | 2020-11-24 12:23 | REP ---
INDICATION: FOLLICULAR THYROID CA. COMPARISON: There are no postsurgical examinations for comparison. TECHNIQUE: Real-time sonographic evaluation of the postsurgical neck. FINDINGS: There is no evidence of residual thyroid tissue or lymphadenopathy in the central neck. There is no evidence of lymphadenopathy or a mass in either right or left cervical lymph node chains. IMPRESSION: No ultrasonographic evidence of an abnormality. <Electronically signed by Walter Craig > 11/24/20 [id number]
== END ==
LOC: M RAD 11:35
PROVIDERS: ATTEND Family Medicine
DX: C73 Malignant neoplasm of thyroid gland (principal)

== ENCOUNTER → 2020-12-28 | Outpatient (CLI) | payer MEDICARE ==
[~2020-12-28] MED LIST changes: -KLOR10TA76 PO; +POTA-136 PO
[2020-12-28 14:38] LABS: CALCIUM LEVEL 9.1 MG/DL (8.5-10.1); CREATININE FOR GFR 1.04 MG/DL (0.55-1.30); FREE T4 0.79 NG/DL (0.76-1.46); GLOMERULAR FILTRATION RATE 58.1 (>51); POTASSIUM SERUM 4.2 MEQ/L (3.5-5.1); PTH INTACT 89.5 PG/ML (18.5-88.0); THYROID STIMULATING HORMONE 0.91 uIU/ML (0.358-3.740); TOTAL 25(OH) VITAMIN D 30.1 NG/ML (30.0-100.0)
== END ==
LOC: M PLALAB 09:40
PROVIDERS: ATTEND Family Medicine
DX: E55.9 Vitamin D deficiency, unspecified (principal); C73 Malignant neoplasm of thyroid gland; Z79.51 Long term (current) use of inhaled steroids; Z79.2 Long term (current) use of antibiotics
CPT/HCPCS: 36415; 80069; 82306; 83970; 84439; 84443; G0463

== ENCOUNTER → 2021-01-01 | Outpatient (CLI) | payer MEDICARE ==
--- NOTE | 2021-01-01 15:10 | REP ---
INDICATION: BREAST CANCER SCREEN. COMPARISON: Multiple prior screening examinations, the most recent, TECHNIQUE: Digital screening (2D) mammography was performed bilaterally in the CC and MLO projections. Additionally, breast tomosynthesis (3D mammography) was performed bilaterally in the CC and MLO projections. FINDINGS: The patient is a 55-year-old with no personal or family history of breast cancer. The patient has no history of breast surgery and has no specific breast complaints this time. The Volpara volumetric breast density pattern is B, there are scattered areas of fibroglandular density. There are stable benign intramammary lymph nodes, on the left. There are no suspicious calcifications, areas of architectural distortion or developing asymmetry is in either breast. There is no significant change since the prior exam.. IMPRESSION: BIRADS/ACR category 2: Benign finding. This patient's Tyrer-Cuzick lifetime breast cancer risk assessment score is 6.8%. This mammogram was interpreted with the aid of an FDA-approved computer-aided detection system. The patient states she has not had a clinical breast exam in over a year. The patient letter being requested is M2. RECOMMENDATION: Repeat screening mammography recommended 1 year (for women over 40). <Electronically signed by Ajay Ward > 01/01/21 [id number]
--- NOTE | 2021-01-01 15:40 | DEXAMM ---
INDICATION: OSTEOPENIA. COMPARISON: Comparison study August 09, 2013. TECHNIQUE: Bone density was measured using dual-energy x-ray absorptionmetry (DEXA). FINDINGS: AP SPINE L1-L4 BMD 1.365 g/cm2 Young Adult T-Score 1.4 Age Matched Z-Score 2.4. LT FEMUR, TOTAL BMD 1.157 g/cm2 Young Adult T-Score 1.2 Age Matched Z-Score 2.0. LT NECK BMD 1.107 g/cm2 Young Adult T-Score 0.5 Age Matched Z-Score 1.6. RT FEMUR, TOTAL BMD 1.182 g/cm2 Young Adult T-Score 1.4 Age Matched Z-Score 2.2. RT NECK BMD 1.187 g/cm2 Young Adult T-Score 1.1 Age Matched Z-Score 2.2. IMPRESSION: There is normal bone density of the spine. There is normal bone density of the left hip. There is normal bone density of the right hip. The density of the spine has increased 11.1% since the initial exam on July 09, 2013. The density of the left hip has decreased 9.6% since initial exam on August 09, 2013. The density of the right hip has decreased 6.5% since the initial exam on August 09, 2013. FOLLOW-UP: Recommendation for the next bone density exam: 5-10 years. <Electronically signed by Gaetano Morel > 01/01/21 [id number]
== END ==
LOC: M WHC 12:47
PROVIDERS: ATTEND Family Medicine
DX: Z12.31 Encounter for screening mammogram for malignant neoplasm of breast (principal); M85.89 Other specified disorders of bone density and structure, multiple sites

== ENCOUNTER → 2021-03-22 | Outpatient (CLI) | payer MEDICARE ==
[~2021-03-22] MED LIST changes: -CITA40TA4 PO; +CITA40TA7 PO
[2021-03-22 14:38] LABS: HEMOGLOBIN A1c 5.7 %
[2021-03-22 15:03] LABS: BILIRUBIN,TOTAL 0.3 MG/DL (0.2-1.0); C REACTIVE PROTEIN QUANTITATIV 1.53 MG/DL (0.00-0.30); CALCIUM LEVEL 9.1 MG/DL (8.5-10.1); CARBAMAZEPINE (TEGRETOL) LEVEL 13.7 UG/ML (4.0-10.0); CHOLESTEROL RISK RATIO 3.27 (<5); CREATININE FOR GFR 1.02 MG/DL (0.55-1.30); FREE T4 0.93 NG/DL (0.76-1.46); GLOMERULAR FILTRATION RATE 59.5 (>51); POTASSIUM SERUM 4.6 MEQ/L (3.5-5.1); THYROID STIMULATING HORMONE 0.226 uIU/ML (0.358-3.740); TOTAL PROTEIN 8.3 GM/DL (6.4-8.2)
[2021-03-23 08:09] LABS: H PYLORI SERUM QUANT IgG ABY 0.72 (0.00-0.79); INSULIN LEVEL 19.9 uIU/mL (2.6-24.9)
== END ==
LOC: M PLALAB 10:53
PROVIDERS: ATTEND Family Medicine
DX: E78.2 Mixed hyperlipidemia (principal); E11.9 Type 2 diabetes mellitus without complications; G90.512 Complex regional pain syndrome I of left upper limb; I50.30 Unspecified diastolic (congestive) heart failure; Z79.899 Other long term (current) drug therapy; Z23 Encounter for immunization
CPT/HCPCS: 36415; 80053; 80061; 80156; 80307; 82550; 82728; 83036; 83525; 83880; 84439; 84443; 86140; 86677; 90682; G0008; G0463

== ENCOUNTER → 2021-04-02 | Outpatient (CLI) | payer MEDICARE | LOC: M RAD 12:13 | PROVIDERS: ATTEND Family Medicine | DX: Z12.2 Encounter for screening for malignant neoplasm of respiratory organs (principal); Z87.891 Personal history of nicotine dependence; R91.1 Solitary pulmonary nodule ==

== ENCOUNTER → 2021-06-26 | Outpatient (CLI) | payer MEDICARE, OTHER ==
[2021-06-26 13:06] LABS: BASO # 0.1 10^3/uL (0.0-0.2); BASO % 0.7 % (0.0-1.0); EOS # 0.2 10^3/uL (0.0-0.5); EOS % 2.5 % (0.0-3.0); HEMATOCRIT 40.3 % (36.0-47.0); HEMOGLOBIN 12.8 g/dl (12.0-15.5); LYMPH # 2.1 10^3/uL (1.5-5.0); LYMPH % 23.2 % (24.0-44.0); MEAN CORPUSCULAR HEMOGLOBIN 28.1 pg (27.0-33.0); MEAN CORPUSCULAR HGB CONC 31.8 g/dl (32.0-36.5); MEAN CORPUSCULAR VOLUME 88.4 fl (80.0-96.0); MONO # 0.6 10^3/uL (0.0-0.8); NEUTROPHILS % 65.9 % (36.0-66.0); PLATELET COUNT, AUTOMATED 317 10^3/uL (150-450); RED BLOOD COUNT 4.56 10^6/uL (4.00-5.40); WHITE BLOOD COUNT 9.1 10^3/uL (4.0-10.0)
[2021-06-26 13:53] LABS: ALBUMIN 4.2 GM/DL (3.2-5.2); ALT/SGPT 25 U/L (12-78); BILIRUBIN,TOTAL 0.2 MG/DL (0.2-1.0); BLOOD UREA NITROGEN 17 MG/DL (7-18); CALCIUM LEVEL 9.4 MG/DL (8.5-10.1); CARBAMAZEPINE (TEGRETOL) LEVEL 10.5 UG/ML (4.0-10.0); CARBON DIOXIDE LEVEL 35 MEQ/L (21-32); CHLORIDE LEVEL 102 MEQ/L (98-107); CREATININE FOR GFR 0.93 MG/DL (0.55-1.30); FREE T4 0.81 NG/DL (0.76-1.46); GLOMERULAR FILTRATION RATE > 60.0 (>51); GLUCOSE, FASTING 87 MG/DL (70-100); NT-PRO BNP 148 PG/ML (<125); POTASSIUM SERUM 3.9 MEQ/L (3.5-5.1); SODIUM LEVEL 141 MEQ/L (136-145); THYROID STIMULATING HORMONE 0.367 uIU/ML (0.358-3.740); TOTAL PROTEIN 8.1 GM/DL (6.4-8.2)
[2021-06-26 15:14] LABS: HEMOGLOBIN A1c 5.9 %
[2021-06-29 12:50] LABS: ALBUMIN 4.38 GM/DL (3.29-5.55); ALBUMIN % 54.1 % (55.8-66.1); ALPHA-1-GLOBULIN % 4.4 % (2.9-4.9); ALPHA-1-GLOBULINS 0.36 GM/DL (0.17-0.41); ALPHA-2-GLOBULINS 0.91 GM/DL (0.42-0.99); ALPHA-2-GLOBULINS % 11.2 % (7.1-11.8); BETA-1-GLOBULINS 0.47 GM/DL (0.28-0.60); BETA-1-GLOBULINS % 5.8 % (4.7-7.2); BETA-2-GLOBULINS 0.46 GM/DL (0.19-0.55); BETA-2-GLOBULINS % 5.7 % (3.2-6.5); GAMMA GLOBULIN % 18.8 % (11.1-18.8); GAMMA GLOBULINS 1.52 GM/DL (0.65-1.58)
== END ==
LOC: M PLALAB 10:49
PROVIDERS: ATTEND Family Medicine
DX: D50.9 Iron deficiency anemia, unspecified (principal); I11.0 Hypertensive heart disease with heart failure; E11.9 Type 2 diabetes mellitus without complications; C73 Malignant neoplasm of thyroid gland; G90.512 Complex regional pain syndrome I of left upper limb; I50.30 Unspecified diastolic (congestive) heart failure

== ENCOUNTER → 2021-08-22 | Outpatient (CLI) | payer MEDICARE ==
[2021-08-22 10:24] LABS: BASO % 0.5 % (0.0-1.0); EOS # 0.2 10^3/uL (0.0-0.5); EOS % 2.6 % (0.0-3.0); HEMATOCRIT 38.5 % (36.0-47.0); HEMOGLOBIN 12.1 g/dl (12.0-15.5); LYMPH # 2.2 10^3/uL (1.5-5.0); MEAN CORPUSCULAR HEMOGLOBIN 28.2 pg (27.0-33.0); MEAN CORPUSCULAR HGB CONC 31.4 g/dl (32.0-36.5); MEAN CORPUSCULAR VOLUME 89.7 fl (80.0-96.0); MONO # 0.5 10^3/uL (0.0-0.8); MONO % 5.6 % (2.0-8.0); NEUTROPHILS # 5.8 10^3/uL (1.5-8.5); PLATELET COUNT, AUTOMATED 353 10^3/uL (150-450); RED BLOOD COUNT 4.29 10^6/uL (4.00-5.40); WHITE BLOOD COUNT 8.8 10^3/uL (4.0-10.0)
[2021-08-22 10:29] LABS: CARBAMAZEPINE (TEGRETOL) LEVEL 9.3 UG/ML (4.0-10.0); MAGNESIUM LEVEL 2.8 MG/DL (1.8-2.4)
[2021-08-22 10:43] LABS: HEMOGLOBIN A1c 5.6 %
[2021-08-24 18:07] LABS: INSULIN LEVEL 34.6 uIU/mL (2.6-24.9)
== END ==
LOC: M PLALAB 07:46
PROVIDERS: ATTEND Family Medicine
DX: E11.9 Type 2 diabetes mellitus without complications (principal)

== ENCOUNTER → 2022-01-21 | Outpatient (CLI) | payer MEDICARE ==
[~2022-01-21] MED LIST changes: +ALBU6.7H6 INH; -PROV108A INH
[2022-01-21 13:54] LABS: ALT/SGPT 32 U/L (12-78); BILIRUBIN,TOTAL 0.4 MG/DL (0.2-1.0); BLOOD UREA NITROGEN 24 MG/DL (7-18); CALCIUM LEVEL 9.1 MG/DL (8.5-10.1); CARBON DIOXIDE LEVEL 31 MEQ/L (21-32); CHLORIDE LEVEL 104 MEQ/L (98-107); CHOLESTEROL LEVEL 147 MG/DL (<200); CHOLESTEROL RISK RATIO 2.826 (<5); CREATININE FOR GFR 1.06 MG/DL (0.55-1.30); FREE T4 0.95 NG/DL (0.76-1.46); GLOMERULAR FILTRATION RATE 56.7 (>51); GLUCOSE, FASTING 102 MG/DL (70-100); HDL CHOLESTEROL 52 MG/DL (>40); LDL CHOLESTEROL 76 MG/DL (<100); NON-HDL-C 95 MG/DL; NT-PRO BNP 93 PG/ML (<125); POTASSIUM SERUM 4.5 MEQ/L (3.5-5.1); SODIUM LEVEL 140 MEQ/L (136-145); THYROID STIMULATING HORMONE 0.025 uIU/ML (0.358-3.740); TRIGLYCERIDES LEVEL 96 MG/DL (<150)
[2022-01-21 14:31] LABS: HEMOGLOBIN A1c 5.6 %
[2022-01-21 15:28] LABS: PTH INTACT 68.6 PG/ML (18.5-88.0); TOTAL 25(OH) VITAMIN D 50.9 NG/ML (30.0-100.0)
[2022-01-22 07:09] LABS: APOLIPOPROTEIN B/A-1 RATIO 0.4 ratio (0.0-0.6)
== END ==
LOC: M PLALAB 10:05
PROVIDERS: ATTEND Family Medicine
DX: E66.2 Morbid (severe) obesity with alveolar hypoventilation (principal); E55.9 Vitamin D deficiency, unspecified; E11.9 Type 2 diabetes mellitus without complications; K76.0 Fatty (change of) liver, not elsewhere classified

== ENCOUNTER → 2022-01-24 | Outpatient (CLI) | payer MEDICARE | LOC: M WHC 12:34 | PROVIDERS: ATTEND Family Medicine | DX: Z12.31 Encounter for screening mammogram for malignant neoplasm of breast (principal) ==

== ENCOUNTER 2022-05-01 18:14 | Inpatient (IN) | payer MEDICARE ==
[~2022-05-01] VITALS: Ht 165.1 cm; Wt 133.2 kg
[~2022-05-01 18:14] MED LIST changes: -ALBU8.5H INH; -BACL10TA2 PO; -D-50CAP PO; -DULO20CA27 PO; -METF-838 PO; -ROSU40TA4 PO; -SYNT175T2 PO
[2022-05-01] MEDS ORDERED: NS 500 ML IV ONE (19:05)
[2022-05-01] MEDS: NS 1,000 ML IV SCH ×2 (19:31→23:00)
[2022-05-01 19:40] LABS: APPEARANCE, URINE MANUAL CLEAR (CLEAR); COLOR, URINE MANUAL YELLOW (YELLOW)
[2022-05-01 19:42] LABS: BASO # 0.1 10^3/uL (0.0-0.2); BASO % 0.4 % (0.0-1.0); BILIRUBIN, URINE MANUAL NEGATIVE (NEGATIVE); EOS # 0.2 10^3/uL (0.0-0.5); EOS % 1.7 % (0.0-3.0); GLUCOSE, URINE (UA) MANUAL NEGATIVE (NEGATIVE); HEMATOCRIT 35.5 % (36.0-47.0); HEMOGLOBIN 11.5 g/dl (12.0-15.5); KETONE, URINE MANUAL NEGATIVE (NEGATIVE); LYMPH # 2.1 10^3/uL (1.5-5.0); LYMPH % 16.8 % (24.0-44.0); MEAN CORPUSCULAR HEMOGLOBIN 28.5 pg (27.0-33.0); MEAN CORPUSCULAR HGB CONC 32.4 g/dl (32.0-36.5); MEAN CORPUSCULAR VOLUME 88.1 fl (80.0-96.0); NEUTROPHILS % 72.7 % (36.0-66.0); NITRITE, URINE MANUAL NEGATIVE (NEGATIVE); PLATELET COUNT, AUTOMATED 272 10^3/uL (150-450); PROTEIN, URINE MANUAL NEGATIVE (NEGATIVE); RED BLOOD COUNT 4.03 10^6/uL (4.00-5.40); UROBILINOGEN, URINE MANUAL NORMAL (NORMAL); WHITE BLOOD COUNT 12.4 10^3/uL (4.0-10.0)
[2022-05-01 19:43] LABS: BLOOD URINE MANUAL NEGATIVE (NEGATIVE); LEUKOCYTE ESTERASE, URINE MAN TRACE (NEGATIVE)
[2022-05-01 20:07] LABS: CALCIUM LEVEL 8.8 MG/DL (8.5-10.1); CREATININE FOR GFR 4.17 MG/DL (0.55-1.30); GLOMERULAR FILTRATION RATE 11.7 (>51); POTASSIUM SERUM 5.8 MMOL/L (3.5-5.1)
[2022-05-01 20:20] LABS: BACTERIA, URINE MOD AMOUNT; HYALINE CAST, URINE NONE SEEN /lpf (0-1); RBC, URINE 0-1 /hpf (0-3); SQUAMOUS EPITHELIAL CELL URINE LARGE AMOUNT /hpf (SMALL AMT)
[2022-05-01] MEDS: INSULIN LISPRO (NovoLOG) PER UNIT SC SCH (21:00)
[2022-05-01] MEDS: CARVedilol 6.25 MG TAB PO SCH (21:00)
[2022-05-01] MEDS ORDERED: DULO20CA27 PO (21:24)
[2022-05-01] MEDS ORDERED: METF-838 PO (21:24)
[2022-05-01] MEDS ORDERED: D-50CAP PO (21:24)
[2022-05-01] MEDS ORDERED: ALBU8.5H INH (21:24)
[2022-05-01] MEDS ORDERED: BACL10TA2 PO (21:24)
[2022-05-01] MEDS ORDERED: SYNT175T2 PO (21:24)
[2022-05-01] MEDS ORDERED: FURO80TA2 PO (21:24)
[2022-05-01] MEDS ORDERED: ROSU40TA4 PO (21:24)
[2022-05-01] MEDS ORDERED: HOME MED LIST COMPLETE! XX SCH (21:30)
[2022-05-01] MEDS ORDERED: NS 1,000 ML IV ONE (21:40)
[2022-05-01] MEDS ORDERED: MOM 30ML SUSPENSION UDC PO PRN (22:05)
[2022-05-01] MEDS ORDERED: RAMELTEON 8 MG TAB (ROZEREM) PO PRN (22:05)
[2022-05-01] MEDS ORDERED: ACETAMINOPHEN TAB 650MG DOSE (2X325MG) PO PRN (22:05)
[2022-05-01] MEDS ORDERED: DEXTROSE 50% 50ML SYRINGE IV PRN (22:10)
[2022-05-01] MEDS ORDERED: GLUCOSE 4GM CHEW TABLET PO PRN (22:10)
[2022-05-01] MEDS ORDERED: GLUCAGON INJ 1MG VIAL SC PRN (22:10)
[2022-05-01] MEDS: PANTOPRAZOLE 40MG TAB (PROTONIX) PO SCH (23:00)
[2022-05-01] MEDS: DULoxetine 20MG CAP (CYMBALTA) PO SCH (23:00)
[2022-05-01] MEDS: BACLOFEN 10 MG TAB PO SCH (23:00)
[2022-05-02] MEDS: NS 1,000 ML IV SCH ×3 (03:05→16:09)
[2022-05-02] MEDS: LEVOTHYROXINE 25MCG TABLET (0.025MG) PO SCH (06:26)
[2022-05-02] MEDS: LEVOTHYROXINE 150MCG TABLET (0.15MG) PO SCH (06:26)
[2022-05-02] MEDS: HEPARIN SOD (PORCINE) 5000UNITS/ML 1ML VIAL/SYRINGE SC SCH ×3 (06:27→22:13)
[2022-05-02 06:51] LABS: HEMATOCRIT 32.2 % (36.0-47.0); HEMOGLOBIN 10.4 g/dl (12.0-15.5); MEAN CORPUSCULAR HEMOGLOBIN 28.4 pg (27.0-33.0); MEAN CORPUSCULAR HGB CONC 32.3 g/dl (32.0-36.5); PLATELET COUNT, AUTOMATED 224 10^3/uL (150-450); RED BLOOD COUNT 3.66 10^6/uL (4.00-5.40); WHITE BLOOD COUNT 9.9 10^3/uL (4.0-10.0)
[2022-05-02 07:18] LABS: ALBUMIN 3.6 G/DL (3.2-5.2); BILIRUBIN,TOTAL 0.3 MG/DL (0.3-1.2); CALCIUM LEVEL 8.1 MG/DL (8.5-10.1); CREATININE FOR GFR 3.25 MG/DL (0.55-1.30); GLOMERULAR FILTRATION RATE 15.6 (>51); POTASSIUM SERUM 5.1 MMOL/L (3.5-5.1); TOTAL PROTEIN 6.8 G/DL (5.7-8.2)
[2022-05-02] MEDS: INSULIN LISPRO (NovoLOG) PER UNIT SC SCH ×5 (08:47→20:28)
[2022-05-02] MEDS: CARVedilol 6.25 MG TAB PO SCH ×2 (08:51→21:00)
[2022-05-02] MEDS: ROSUVASTATIN 10 MG TAB (CRESTOR) PO SCH (08:54)
[2022-05-02] MEDS: DULoxetine 20MG CAP (CYMBALTA) PO SCH (08:54)
[2022-05-02] MEDS: BACLOFEN 10 MG TAB PO SCH ×3 (08:54→22:15)
[2022-05-02 16:00] VITALS: BP 98/56
[2022-05-02 21:00] VITALS: BP 96/62
[2022-05-02 22:00] VITALS: BP 97/53
[2022-05-02] MEDS: NYSTATIN 100,000 UNITS/GM TOPICAL PWD 15GM TOP SCH (22:07)
[2022-05-02] MEDS: PANTOPRAZOLE 40MG TAB (PROTONIX) PO SCH (22:15)
[2022-05-03] MEDS: DULoxetine 20MG CAP (CYMBALTA) PO SCH ×2 (00:44→09:35)
[2022-05-03 01:00] VITALS: BP_SYST 90; BP_SYST 92; BP_DIAS 48; BP_DIAS 52
[2022-05-03 06:00] VITALS: BP 96/48
[2022-05-03] MEDS: LEVOTHYROXINE 150MCG TABLET (0.15MG) PO SCH (06:06)
[2022-05-03] MEDS: LEVOTHYROXINE 25MCG TABLET (0.025MG) PO SCH (06:07)
[2022-05-03] MEDS: HEPARIN SOD (PORCINE) 5000UNITS/ML 1ML VIAL/SYRINGE SC SCH (06:07)
[2022-05-03] MEDS: INSULIN LISPRO (NovoLOG) PER UNIT SC SCH (07:30)
[2022-05-03 08:02] LABS: CALCIUM LEVEL 8.6 MG/DL (8.5-10.1); CREATININE FOR GFR 1.91 MG/DL (0.55-1.30); GLOMERULAR FILTRATION RATE 28.7 (>51); POTASSIUM SERUM 5.3 MMOL/L (3.5-5.1)
[2022-05-03 08:32] LABS: HEMATOCRIT 32.6 % (36.0-47.0); HEMOGLOBIN 10.4 g/dl (12.0-15.5); MEAN CORPUSCULAR HEMOGLOBIN 28.6 pg (27.0-33.0); MEAN CORPUSCULAR HGB CONC 31.9 g/dl (32.0-36.5); MEAN CORPUSCULAR VOLUME 89.6 fl (80.0-96.0); PLATELET COUNT, AUTOMATED 218 10^3/uL (150-450); RED BLOOD COUNT 3.64 10^6/uL (4.00-5.40); WHITE BLOOD COUNT 7.5 10^3/uL (4.0-10.0)
[2022-05-03] MEDS ORDERED: NYSTATIN 100,000 UNITS/GM TOPICAL PWD 15GM TOP SCH (09:00)
[2022-05-03] MEDS ORDERED: CitaloPRAM (CeleXA) 20 MG TAB PO SCH (09:00)
[2022-05-03] MEDS: CARVedilol 6.25 MG TAB PO SCH (09:00)
[2022-05-03] MEDS: BACLOFEN 10 MG TAB PO SCH (09:35)
[2022-05-03] MEDS: ROSUVASTATIN 10 MG TAB (CRESTOR) PO SCH (09:35)
[2022-05-03] MEDS: NYSTATIN 100,000 UNITS/GM TOPICAL PWD 15GM TOP SCH (09:36)
[2022-05-03] MEDS ORDERED: LASI80TA3 PO (10:25)
== END 2022-05-03 11:45 | disposition home or self-care (01) | DRG 683 ==
LOC: M ED 18:14 → M ED INP 22:03 → ENRESERV 05-02 14:24 → M MSPAV 05-02 16:04
PROVIDERS: ADMIT Family Medicine; ATTEND Internal Medicine
DX: N17.9 Acute kidney failure, unspecified (principal); I13.0 Hypertensive heart and chronic kidney disease with heart failure and stage 1 through stage 4 chronic kidney disease, or unspecified chronic kidney disease; I50.32 Chronic diastolic (congestive) heart failure; J96.11 Chronic respiratory failure with hypoxia; Z68.42 Body mass index [BMI] 45.0-49.9, adult; J44.9 Chronic obstructive pulmonary disease, unspecified; G47.00 Insomnia, unspecified; D64.9 Anemia, unspecified; E66.01 Morbid (severe) obesity due to excess calories; E11.22 Type 2 diabetes mellitus with diabetic chronic kidney disease; N18.31 Chronic kidney disease, stage 3a; E87.5 Hyperkalemia; E11.42 Type 2 diabetes mellitus with diabetic polyneuropathy; E86.0 Dehydration; G47.33 Obstructive sleep apnea (adult) (pediatric); Z90.89 Acquired absence of other organs; Z87.891 Personal history of nicotine dependence; I95.1 Orthostatic hypotension; E03.9 Hypothyroidism, unspecified; Z79.890 Hormone replacement therapy; Z79.84 Long term (current) use of oral hypoglycemic drugs; Z79.899 Other long term (current) drug therapy; Z99.81 Dependence on supplemental oxygen

== ENCOUNTER → 2022-05-01 | Outpatient (CLI) | payer MEDICARE ==
[~2022-05-01] MED LIST changes: +ALBU8.5H INH; +BACL10TA2 PO; +D-50CAP PO; +DULO20CA27 PO; +METF-838 PO; +ROSU40TA4 PO; +SYNT175T2 PO
[2022-05-01 15:26] LABS: BASO % 0.4 % (0.0-1.0); EOS # 0.2 10^3/uL (0.0-0.5); HEMATOCRIT 37.2 % (36.0-47.0); HEMOGLOBIN 11.9 g/dl (12.0-15.5); LYMPH % 18.4 % (24.0-44.0); MEAN CORPUSCULAR HEMOGLOBIN 28.7 pg (27.0-33.0); MEAN CORPUSCULAR VOLUME 89.6 fl (80.0-96.0); MONO # 0.8 10^3/uL (0.0-0.8); MONO % 6.8 % (2.0-8.0); NEUTROPHILS % 72.1 % (36.0-66.0); PLATELET COUNT, AUTOMATED 294 10^3/uL (150-450); RED BLOOD COUNT 4.15 10^6/uL (4.00-5.40); WHITE BLOOD COUNT 11.1 10^3/uL (4.0-10.0)
[2022-05-01 15:55] LABS: ERYTHROCYTE SEDIMENTATION RATE 80 mm/hr (0-30)
[2022-05-01 15:56] LABS: MAGNESIUM LEVEL 2.7 MG/DL (1.8-2.4)
[2022-05-01 15:58] LABS: ALBUMIN 4.3 G/DL (3.2-5.2); BILIRUBIN,TOTAL 0.4 MG/DL (0.3-1.2); C REACTIVE PROTEIN QUANTITATIV 0.4 MG/DL (<1.0); CALCIUM LEVEL 9.4 MG/DL (8.5-10.1); CREATININE FOR GFR 3.99 MG/DL (0.55-1.30); GLOMERULAR FILTRATION RATE 12.3 (>51); POTASSIUM SERUM 5.6 MMOL/L (3.5-5.1); TOTAL PROTEIN 7.9 G/DL (5.7-8.2)
[2022-05-01 16:00] LABS: THYROID STIMULATING HORMONE 0.008 uIU/ML (0.55-4.78)
[2022-05-01 16:01] LABS: FREE T4 1.78 NG/DL (0.89-1.76)
== END ==
LOC: M PLALAB 14:13
PROVIDERS: ATTEND Physician Assistant
DX: R05.1 Acute cough (principal); R53.1 Weakness; I50.30 Unspecified diastolic (congestive) heart failure; R53.83 Other fatigue

== ENCOUNTER → 2022-05-23 | Outpatient (CLI) | payer MEDICARE ==
[~2022-05-23] MED LIST changes: +ALBU8.5H INH; +BACL10TA2 PO; +D-50CAP PO; +DULO20CA27 PO; +LASI80TA3 PO; +METF-838 PO; +ROSU40TA4 PO; +SYNT175T2 PO
[2022-05-23 17:37] LABS: BASO # 0.1 10^3/uL (0.0-0.2); BASO % 0.5 % (0.0-1.0); EOS # 0.2 10^3/uL (0.0-0.5); EOS % 1.6 % (0.0-3.0); HEMATOCRIT 37.8 % (36.0-47.0); HEMOGLOBIN 12.2 g/dl (12.0-15.5); LYMPH # 2.9 10^3/uL (1.5-5.0); LYMPH % 20.4 % (24.0-44.0); MEAN CORPUSCULAR HEMOGLOBIN 28.4 pg (27.0-33.0); MEAN CORPUSCULAR HGB CONC 32.3 g/dl (32.0-36.5); MEAN CORPUSCULAR VOLUME 87.9 fl (80.0-96.0); MONO % 7.1 % (2.0-8.0); NEUTROPHILS # 9.9 10^3/uL (1.5-8.5); PLATELET COUNT, AUTOMATED 399 10^3/uL (150-450); WHITE BLOOD COUNT 14.1 10^3/uL (4.0-10.0)
[2022-05-23 18:09] LABS: BILIRUBIN,TOTAL 0.4 MG/DL (0.3-1.2); CALCIUM LEVEL 9.8 MG/DL (8.5-10.1); CREATININE FOR GFR 1.16 MG/DL (0.55-1.30); FREE T4 1.91 NG/DL (0.89-1.76); GLOMERULAR FILTRATION RATE 51.1 (>51); MAGNESIUM LEVEL 2.2 MG/DL (1.8-2.4); POTASSIUM SERUM 3.6 MMOL/L (3.5-5.1); THYROID STIMULATING HORMONE 0.008 uIU/ML (0.55-4.78); TOTAL PROTEIN 7.6 G/DL (5.7-8.2)
== END ==
LOC: M PLALAB 16:18
PROVIDERS: ATTEND Family Medicine
DX: I10 Essential (primary) hypertension (principal); E66.2 Morbid (severe) obesity with alveolar hypoventilation; D50.9 Iron deficiency anemia, unspecified

== ENCOUNTER → 2022-06-12 | Outpatient (CLI) | payer MEDICARE ==
[2022-06-12 17:31] LABS: BASO # 0.1 10^3/uL (0.0-0.2); BASO % 0.4 % (0.0-1.0); EOS # 0.4 10^3/uL (0.0-0.5); HEMOGLOBIN 11.8 g/dl (12.0-15.5); LYMPH # 3.5 10^3/uL (1.5-5.0); MEAN CORPUSCULAR HEMOGLOBIN 28.2 pg (27.0-33.0); MEAN CORPUSCULAR HGB CONC 31.1 g/dl (32.0-36.5); MEAN CORPUSCULAR VOLUME 90.9 fl (80.0-96.0); MONO # 1.1 10^3/uL (0.0-0.8); MONO % 6.2 % (2.0-8.0); NEUTROPHILS # 12.1 10^3/uL (1.5-8.5); NEUTROPHILS % 70.5 % (36.0-66.0); PLATELET COUNT, AUTOMATED 367 10^3/uL (150-450); RED BLOOD COUNT 4.18 10^6/uL (4.00-5.40); WHITE BLOOD COUNT 17.2 10^3/uL (4.0-10.0)
[2022-06-12 17:45] LABS: ALBUMIN 3.5 G/DL (3.2-5.2); CALCIUM LEVEL 8.9 MG/DL (8.5-10.1); CREATININE FOR GFR 1.11 MG/DL (0.55-1.30); GLOMERULAR FILTRATION RATE 53.7 (>51); PHOSPHORUS LEVEL 4.5 MG/DL (2.5-4.9); POTASSIUM SERUM 4.3 MMOL/L (3.5-5.1)
[2022-06-12 17:48] LABS: THYROID STIMULATING HORMONE 0.008 uIU/ML (0.55-4.78)
== END ==
LOC: M PLALAB 16:18
PROVIDERS: ATTEND Internal Medicine Cardiovascular Disease
DX: I50.32 Chronic diastolic (congestive) heart failure (principal); I11.0 Hypertensive heart disease with heart failure; D72.829 Elevated white blood cell count, unspecified; E03.9 Hypothyroidism, unspecified

== ENCOUNTER → 2022-06-14 | Outpatient (CLI) | payer MEDICARE | LOC: M RAD 15:56 | PROVIDERS: ATTEND Family Medicine | DX: Z12.2 Encounter for screening for malignant neoplasm of respiratory organs (principal); Z87.891 Personal history of nicotine dependence; R91.1 Solitary pulmonary nodule; I70.0 Atherosclerosis of aorta; I25.10 Atherosclerotic heart disease of native coronary artery without angina pectoris ==

== ENCOUNTER → 2022-08-20 | Outpatient (CLI) | payer MEDICARE ==
[~2022-08-20] MED LIST changes: +FLUT50SP17 INH; -FLUTISP INH
[2022-08-20 17:45] LABS: BASO # 0.1 10^3/uL (0.0-0.2); BASO % 0.5 % (0.0-1.0); EOS # 0.4 10^3/uL (0.0-0.5); EOS % 2.8 % (0.0-3.0); HEMOGLOBIN 12.6 g/dl (12.0-15.5); LYMPH % 21.5 % (24.0-44.0); MEAN CORPUSCULAR HGB CONC 31.5 g/dl (32.0-36.5); MEAN CORPUSCULAR VOLUME 85.7 fl (80.0-96.0); MONO # 0.9 10^3/uL (0.0-0.8); MONO % 6.4 % (2.0-8.0); NEUTROPHILS # 9.5 10^3/uL (1.5-8.5); NEUTROPHILS % 68.4 % (36.0-66.0); PLATELET COUNT, AUTOMATED 348 10^3/uL (150-450); RED BLOOD COUNT 4.67 10^6/uL (4.00-5.40); WHITE BLOOD COUNT 13.8 10^3/uL (4.0-10.0)
[2022-08-20 18:09] LABS: ALBUMIN 4.2 G/DL (3.2-5.2); BILIRUBIN,TOTAL 0.3 MG/DL (0.3-1.2); CALCIUM LEVEL 9.3 MG/DL (8.5-10.1); CREATININE FOR GFR 1.18 MG/DL (0.55-1.30); FREE T4 1.39 NG/DL (0.89-1.76); GLOMERULAR FILTRATION RATE 49.9 (>51); POTASSIUM SERUM 4.7 MMOL/L (3.5-5.1); TOTAL PROTEIN 7.7 G/DL (5.7-8.2)
[2022-08-20 18:10] LABS: THYROID STIMULATING HORMONE 0.008 uIU/ML (0.55-4.78)
== END ==
LOC: M PLALAB 15:05
PROVIDERS: ATTEND Physician Assistant
DX: J01.90 Acute sinusitis, unspecified (principal); R05.1 Acute cough; R53.81 Other malaise; R53.83 Other fatigue; C73 Malignant neoplasm of thyroid gland

== ENCOUNTER → 2022-09-13 | Outpatient (CLI) | payer MEDICARE | LOC: M PLAIMG 15:09 | PROVIDERS: ATTEND Physician Assistant | DX: M19.071 Primary osteoarthritis, right ankle and foot (principal) ==

== ENCOUNTER → 2022-10-02 | Outpatient (REF) | payer MEDICARE | LOC: M SFHCWAGY 10:19 | PROVIDERS: ATTEND Nurse Practitioner Family | DX: Z12.4 Encounter for screening for malignant neoplasm of cervix (principal) | CPT/HCPCS: 87624; G0123 ==

== ENCOUNTER → 2022-10-10 | Outpatient (CLI) | payer MEDICARE | LOC: M PLAIMG 11:12 | PROVIDERS: ATTEND Family Medicine | DX: M47.816 Spondylosis without myelopathy or radiculopathy, lumbar region (principal); M43.17 Spondylolisthesis, lumbosacral region ==

== ENCOUNTER → 2022-12-05 | Outpatient (CLI) | payer MEDICARE ==
[2022-12-05 16:02] LABS: BASO # 0.1 10^3/uL (0.0-0.2); BASO % 0.5 % (0.0-1.0); EOS # 0.3 10^3/uL (0.0-0.5); EOS % 2.3 % (0.0-3.0); HEMATOCRIT 43.6 % (36.0-47.0); HEMOGLOBIN 13.9 g/dl (12.0-15.5); LYMPH # 2.5 10^3/uL (1.5-5.0); LYMPH % 22.4 % (24.0-44.0); MEAN CORPUSCULAR HEMOGLOBIN 26.6 pg (27.0-33.0); MEAN CORPUSCULAR HGB CONC 31.9 g/dl (32.0-36.5); MEAN CORPUSCULAR VOLUME 83.5 fl (80.0-96.0); MONO # 0.7 10^3/uL (0.0-0.8); MONO % 6.3 % (2.0-8.0); NEUTROPHILS # 7.6 10^3/uL (1.5-8.5); NEUTROPHILS % 68.1 % (36.0-66.0); PLATELET COUNT, AUTOMATED 369 10^3/uL (150-450); RED BLOOD COUNT 5.22 10^6/uL (4.00-5.40); WHITE BLOOD COUNT 11.1 10^3/uL (4.0-10.0)
[2022-12-05 16:29] LABS: HEMOGLOBIN A1c 5.3 % (4.0-6.0)
[2022-12-05 16:32] LABS: ALBUMIN 4.2 G/DL (3.2-5.2); BILIRUBIN,TOTAL 0.6 MG/DL (0.3-1.2); CHOLESTEROL RISK RATIO 3.3 (<5); CREATININE FOR GFR 1.29 MG/DL (0.55-1.30); HDL CHOLESTEROL 35.1 MG/DL (>40); LDL CHOLESTEROL 56.1 MG/DL (<100); NON-HDL-C 80.9 MG/DL; TOTAL PROTEIN 8.1 G/DL (5.7-8.2)
[2022-12-05 16:33] LABS: FERRITIN 48.2 NG/ML (7.3-270.7); FREE T4 1.83 NG/DL (0.89-1.76); THYROID STIMULATING HORMONE 0.008 uIU/ML (0.55-4.78)
== END ==
LOC: M PLALAB 13:04
PROVIDERS: ATTEND Family Medicine
DX: D50.9 Iron deficiency anemia, unspecified (principal); I11.0 Hypertensive heart disease with heart failure; E78.2 Mixed hyperlipidemia; E11.9 Type 2 diabetes mellitus without complications; I50.30 Unspecified diastolic (congestive) heart failure

== ENCOUNTER → 2023-01-20 | Outpatient (CLI) | payer MEDICARE ==
[2023-01-20 09:10] LABS: IONIZED CALCIUM 4.8 MG/DL (4.5-5.3)
[2023-01-20 09:24] LABS: HEMATOCRIT 38.9 % (36.0-47.0); HEMOGLOBIN 12.7 g/dl (12.0-15.5); MEAN CORPUSCULAR HEMOGLOBIN 27.4 pg (27.0-33.0); MEAN CORPUSCULAR HGB CONC 32.6 g/dl (32.0-36.5); PLATELET COUNT, AUTOMATED 295 10^3/uL (150-450); RED BLOOD COUNT 4.63 10^6/uL (4.00-5.40); WHITE BLOOD COUNT 8.4 10^3/uL (4.0-10.0)
[2023-01-20 09:48] LABS: ALBUMIN 3.7 G/DL (3.2-5.2); ALKALINE PHOSPHATASE 64 U/L (46-116); ALT/SGPT 27 U/L (7.0-40); AST/SGOT 15 U/L (<34); BILIRUBIN,TOTAL 0.4 MG/DL (0.3-1.2); BLOOD UREA NITROGEN 23 MG/DL (9-23); CALCIUM LEVEL 9.3 MG/DL (8.5-10.1); CARBON DIOXIDE LEVEL 32 MMOL/L (20-31); CHLORIDE LEVEL 107 MMOL/L (98-107); CHOLESTEROL LEVEL 130 MG/DL (<200); CHOLESTEROL RISK RATIO 3.17 (<5); CREATININE FOR GFR 0.95 MG/DL (0.55-1.30); GLOMERULAR FILTRATION RATE > 60.0 (>51); GLUCOSE, FASTING 99 MG/DL (60-100); HDL CHOLESTEROL 40.9 MG/DL (>40); IRON (FE) 74 UG/DL (50-170); LDL CHOLESTEROL 68.9 MG/DL (<100); NON-HDL-C 89.1 MG/DL; PERCENT SATURATION 19.7 % (13.2-45.0); POTASSIUM SERUM 4.1 MMOL/L (3.5-5.1); SODIUM LEVEL 145 MMOL/L (136-145); TOTAL IRON BINDING CAPACITY 376 UG/DL (250-425); TOTAL PROTEIN 7.2 G/DL (5.7-8.2); TRIGLYCERIDES LEVEL 101 MG/DL (<150)
[2023-01-20 09:49] LABS: FOLATE > 24.0 NG/ML (>5.4)
[2023-01-20 09:50] LABS: TOTAL 25(OH) VITAMIN D 73.9 NG/ML (20.0-100.0); VITAMIN B12 LEVEL 645 PG/ML (211-911)
== END ==
LOC: M LAB 08:03 → M PLALAB 08:03
PROVIDERS: ATTEND Physician Assistant
DX: E66.01 Morbid (severe) obesity due to excess calories (principal)

== ENCOUNTER → 2023-02-20 | Outpatient (CLI) | payer MEDICARE | LOC: M WHC 09:49 | PROVIDERS: ATTEND Family Medicine | DX: Z12.39 Encounter for other screening for malignant neoplasm of breast (principal); M85.80 Other specified disorders of bone density and structure, unspecified site ==

== ENCOUNTER → 2023-03-17 | Outpatient (CLI) | payer MEDICARE, MEDICAID | LOC: M WHC 10:38 | PROVIDERS: ATTEND Family Medicine | DX: Z12.31 Encounter for screening mammogram for malignant neoplasm of breast (principal); M85.89 Other specified disorders of bone density and structure, multiple sites; Z80.41 Family history of malignant neoplasm of ovary; Z80.0 Family history of malignant neoplasm of digestive organs ==

== ENCOUNTER → 2023-05-02 | Outpatient (CLI) | payer MEDICARE, MEDICAID ==
[~2023-05-02] MED LIST changes: -FLUT50SP17 INH; +FLUTISP INH
[2023-05-02 07:26] LABS: BASO # 0.1 10^3/uL (0.0-0.2); BASO % 0.5 % (0.0-1.0); EOS # 0.4 10^3/uL (0.0-0.5); EOS % 3.4 % (0.0-3.0); HEMATOCRIT 41.9 % (36.0-47.0); HEMOGLOBIN 13.1 g/dl (12.0-15.5); LYMPH # 2.3 10^3/uL (1.5-5.0); LYMPH % 22.1 % (24.0-44.0); MEAN CORPUSCULAR HEMOGLOBIN 26.8 pg (27.0-33.0); MEAN CORPUSCULAR HGB CONC 31.3 g/dl (32.0-36.5); MEAN CORPUSCULAR VOLUME 85.9 fl (80.0-96.0); MONO # 0.6 10^3/uL (0.0-0.8); MONO % 6.3 % (2.0-8.0); NEUTROPHILS # 6.9 10^3/uL (1.5-8.5); NEUTROPHILS % 67.4 % (36.0-66.0); PLATELET COUNT, AUTOMATED 294 10^3/uL (150-450); RED BLOOD COUNT 4.88 10^6/uL (4.00-5.40); WHITE BLOOD COUNT 10.2 10^3/uL (4.0-10.0)
[2023-05-02 07:58] LABS: ALBUMIN 3.7 G/DL (3.2-5.2); BILIRUBIN,TOTAL 0.5 MG/DL (0.3-1.2); CALCIUM LEVEL 9.3 MG/DL (8.5-10.1); CREATININE FOR GFR 1.23 MG/DL (0.55-1.30); GLOMERULAR FILTRATION RATE 47.6 (>51); POTASSIUM SERUM 4.6 MMOL/L (3.5-5.1); PTH INTACT 87.2 PG/ML (18.5-88.0); TOTAL PROTEIN 7.3 G/DL (5.7-8.2)
[2023-05-02 07:59] LABS: FERRITIN 27.3 NG/ML (7.3-270.7); FREE T4 1.39 NG/DL (0.89-1.76); THYROID STIMULATING HORMONE 0.008 uIU/ML (0.55-4.78)
[2023-05-02 08:00] LABS: TOTAL 25(OH) VITAMIN D 75.6 NG/ML (20.0-100.0)
== END ==
LOC: M LAB 06:31
PROVIDERS: ATTEND Family Medicine
DX: I50.32 Chronic diastolic (congestive) heart failure (principal); D50.9 Iron deficiency anemia, unspecified; I11.9 Hypertensive heart disease without heart failure; Z79.899 Other long term (current) drug therapy

== ENCOUNTER → 2023-05-02 | Outpatient (CLI) | payer MEDICARE, MEDICAID | LOC: M EKG 06:34 | PROVIDERS: ATTEND Physician Assistant | DX: E66.01 Morbid (severe) obesity due to excess calories (principal) ==

== ENCOUNTER → 2023-05-05 | Outpatient (CLI) | payer MEDICARE | LOC: M WHC 16:03 | PROVIDERS: ATTEND Family Medicine | DX: Z12.39 Encounter for other screening for malignant neoplasm of breast (principal) ==

== ENCOUNTER → 2023-06-24 | Outpatient (CLI) | payer MEDICARE ==
[~2023-06-24] MED LIST changes: -MELA1TAB9 PO; +MELA5TAB58 PO
[2023-06-24 10:20] LABS: BASO # 0.1 10^3/uL (0.0-0.2); BASO % 0.9 % (0.0-1.0); EOS # 0.2 10^3/uL (0.0-0.5); EOS % 3.3 % (0.0-3.0); HEMOGLOBIN 13.1 g/dl (12.0-15.5); LYMPH # 1.9 10^3/uL (1.5-5.0); LYMPH % 27.5 % (24.0-44.0); MEAN CORPUSCULAR HEMOGLOBIN 28.1 pg (27.0-33.0); MONO # 0.6 10^3/uL (0.0-0.8); NEUTROPHILS # 4.2 10^3/uL (1.5-8.5); NEUTROPHILS % 59.9 % (36.0-66.0); PLATELET COUNT, AUTOMATED 292 10^3/uL (150-450); RED BLOOD COUNT 4.66 10^6/uL (4.00-5.40)
[2023-06-24 10:49] LABS: ALBUMIN 3.6 G/DL (3.2-5.2); ALKALINE PHOSPHATASE 68 U/L (46-116); ALT/SGPT 14 U/L (7.0-40); AST/SGOT 12 U/L (<34); BILIRUBIN,TOTAL 0.4 MG/DL (0.3-1.2); BLOOD UREA NITROGEN 12 MG/DL (9-23); CALCIUM LEVEL 8.3 MG/DL (8.5-10.1); CARBON DIOXIDE LEVEL 28 MMOL/L (20-31); CHLORIDE LEVEL 110 MMOL/L (98-107); FERRITIN 36.3 NG/ML (7.3-270.7); GLOMERULAR FILTRATION RATE > 60.0 (>51); GLUCOSE, FASTING 89 MG/DL (60-100); MAGNESIUM LEVEL 2.2 MG/DL (1.8-2.4); SODIUM LEVEL 142 MMOL/L (136-145); TOTAL PROTEIN 6.6 G/DL (5.7-8.2)
[2023-06-24 10:50] LABS: THYROID STIMULATING HORMONE 0.087 uIU/ML (0.55-4.78)
[2023-06-24 10:51] LABS: FREE T4 1.13 NG/DL (0.89-1.76); VITAMIN B12 LEVEL 1214 PG/ML (211-911)
== END ==
LOC: M PLALAB 06:47
PROVIDERS: ATTEND Family Medicine
DX: D50.9 Iron deficiency anemia, unspecified (principal); C73 Malignant neoplasm of thyroid gland; I50.32 Chronic diastolic (congestive) heart failure

== ENCOUNTER → 2023-07-04 | Outpatient (CLI) | payer MEDICARE, MEDICAID | LOC: M RAD 08:29 | PROVIDERS: ATTEND Family Medicine | DX: Z12.2 Encounter for screening for malignant neoplasm of respiratory organs (principal); Z87.891 Personal history of nicotine dependence ==

== ENCOUNTER 2023-08-03 21:28 | Emergency (ER) | payer MEDICARE, MEDICAID ==
[~2023-08-03] VITALS: Ht 165.1 cm; Wt 119.7 kg
[2023-08-04 00:04] LABS: BLOOD UREA NITROGEN 11 MG/DL (9-23); CALCIUM LEVEL 9.2 MG/DL (8.3-10.6); CARBON DIOXIDE LEVEL 25 MMOL/L (20-31); CHLORIDE LEVEL 109 MMOL/L (98-107); CREATININE FOR GFR 0.96 MG/DL (0.55-1.30); GLOMERULAR FILTRATION RATE > 60.0 (>45); GLUCOSE, FASTING 100 MG/DL (74-106); POTASSIUM SERUM 4.2 MMOL/L (3.5-5.1); SODIUM LEVEL 140 MMOL/L (136-145)
[2023-08-04 00:10] LABS: BASO # 0.1 10^3/uL (0.0-0.2); BASO % 0.5 % (0.0-1.0); EOS # 0.3 10^3/uL (0.0-0.5); EOS % 1.9 % (0.0-3.0); HEMATOCRIT 42.3 % (36.0-47.0); HEMOGLOBIN 13.9 g/dl (12.0-15.5); LYMPH # 2.6 10^3/uL (1.5-5.0); LYMPH % 19.7 % (24.0-44.0); MEAN CORPUSCULAR HEMOGLOBIN 28.7 pg (27.0-33.0); MEAN CORPUSCULAR HGB CONC 32.9 g/dl (32.0-36.5); MEAN CORPUSCULAR VOLUME 87.4 fl (80.0-96.0); MONO # 0.7 10^3/uL (0.0-0.8); MONO % 5.4 % (2.0-8.0); NEUTROPHILS # 9.5 10^3/uL (1.5-8.5); NEUTROPHILS % 72.1 % (36.0-66.0); PLATELET COUNT, AUTOMATED 258 10^3/uL (150-450); RED BLOOD COUNT 4.84 10^6/uL (4.00-5.40); WHITE BLOOD COUNT 13.2 10^3/uL (4.0-10.0)
[2023-08-04 00:20] VITALS: BP 134/98; TEMP 97.6; O2SAT 97
== END 2023-08-04 00:47 | disposition home or self-care (01) ==
LOC: M ED 21:28
DX: S09.90XA Unspecified injury of head, initial encounter (principal); W10.8XXA Fall (on) (from) other stairs and steps, initial encounter; Y92.009 Unspecified place in unspecified non-institutional (private) residence as the place of occurrence of the external cause; Y93.9 Activity, unspecified; Y99.9 Unspecified external cause status; N20.0 Calculus of kidney; M43.17 Spondylolisthesis, lumbosacral region; K02.9 Dental caries, unspecified; Z87.891 Personal history of nicotine dependence; Z79.899 Other long term (current) drug therapy

== ENCOUNTER → 2023-09-10 | Outpatient (CLI) | payer MEDICARE, MEDICAID ==
[~2023-09-10] MED LIST changes: +CARB400T11 PO; -CARB400T4 PO; -ROSU40TA4 PO; +ROSU40TA63 PO
[2023-09-10 07:34] LABS: BASO # 0.1 10^3/uL (0.0-0.2); BASO % 0.6 % (0.0-1.0); EOS # 0.3 10^3/uL (0.0-0.5); EOS % 3.3 % (0.0-3.0); HEMATOCRIT 40.5 % (36.0-47.0); HEMOGLOBIN 13.5 g/dl (12.0-15.5); LYMPH # 2.4 10^3/uL (1.5-5.0); LYMPH % 26.6 % (24.0-44.0); MEAN CORPUSCULAR HEMOGLOBIN 29.8 pg (27.0-33.0); MEAN CORPUSCULAR HGB CONC 33.3 g/dl (32.0-36.5); MEAN CORPUSCULAR VOLUME 89.4 fl (80.0-96.0); MONO # 0.7 10^3/uL (0.0-0.8); MONO % 7.9 % (2.0-8.0); NEUTROPHILS # 5.4 10^3/uL (1.5-8.5); NEUTROPHILS % 61.4 % (36.0-66.0); PLATELET COUNT, AUTOMATED 279 10^3/uL (150-450); RED BLOOD COUNT 4.53 10^6/uL (4.00-5.40); WHITE BLOOD COUNT 8.9 10^3/uL (4.0-10.0)
[2023-09-10 08:00] LABS: TOTAL IRON BINDING CAPACITY 321 UG/DL (250-425)
[2023-09-10 08:01] LABS: ALBUMIN 3.7 G/DL (3.2-5.2); ALKALINE PHOSPHATASE 74 U/L (46-116); ALT/SGPT 16 U/L (7.0-40); AST/SGOT 9 U/L (<34); BILIRUBIN,TOTAL 0.3 MG/DL (0.3-1.2); BLOOD UREA NITROGEN 24 MG/DL (9-23); CALCIUM LEVEL 9.3 MG/DL (8.3-10.6); CARBON DIOXIDE LEVEL 29 MMOL/L (20-31); CHLORIDE LEVEL 110 MMOL/L (98-107); CHOLESTEROL LEVEL 97 MG/DL (<200); CHOLESTEROL RISK RATIO 3.06 (<5); CREATININE FOR GFR 0.91 MG/DL (0.55-1.30); GLOMERULAR FILTRATION RATE > 60.0 (>45); GLUCOSE, FASTING 99 MG/DL (74-106); HDL CHOLESTEROL 31.6 MG/DL (>40); IRON (FE) 36 UG/DL (50-170); LDL CHOLESTEROL 48.6 MG/DL (<100); NON-HDL-C 65.4 MG/DL; PERCENT SATURATION 11.2 % (13.2-45.0); POTASSIUM SERUM 4.8 MMOL/L (3.5-5.1); SODIUM LEVEL 142 MMOL/L (136-145); TOTAL PROTEIN 6.8 G/DL (5.7-8.2); TRIGLYCERIDES LEVEL 84 MG/DL (<150)
[2023-09-10 08:02] LABS: TOTAL 25(OH) VITAMIN D 53.6 NG/ML (20.0-100.0); VITAMIN B12 LEVEL 474 PG/ML (211-911)
== END ==
LOC: M LAB 06:30
PROVIDERS: ATTEND Physician Assistant
DX: Z98.84 Bariatric surgery status (principal)

== ENCOUNTER → 2023-09-11 | Outpatient (REF) | payer MEDICARE, MEDICAID | LOC: M SFHCPLAZ 16:56 | PROVIDERS: ATTEND Family Medicine | DX: D50.9 Iron deficiency anemia, unspecified (principal); C73 Malignant neoplasm of thyroid gland; I50.32 Chronic diastolic (congestive) heart failure; E55.9 Vitamin D deficiency, unspecified ==

== ENCOUNTER → 2023-12-23 | Outpatient (CLI) | payer MEDICARE, MEDICAID ==
[~2023-12-23] MED LIST changes: -ROSU40TA63 PO; +ROSU40TA81 PO
[2023-12-23 11:16] LABS: HEMATOCRIT 44.8 % (36.0-47.0); HEMOGLOBIN 14.4 g/dl (12.0-15.5); MEAN CORPUSCULAR HEMOGLOBIN 30.4 pg (27.0-33.0); MEAN CORPUSCULAR HGB CONC 32.1 g/dl (32.0-36.5); MEAN CORPUSCULAR VOLUME 94.5 fl (80.0-96.0); PLATELET COUNT, AUTOMATED 303 10^3/uL (150-450); RED BLOOD COUNT 4.74 10^6/uL (4.00-5.40); WHITE BLOOD COUNT 7.7 10^3/uL (4.0-10.0)
[2023-12-23 11:25] LABS: TOTAL IRON BINDING CAPACITY 320 UG/DL (250-425)
[2023-12-23 11:26] LABS: ALBUMIN 4.1 G/DL (3.2-5.2); ALKALINE PHOSPHATASE 78 U/L (46-116); ALT/SGPT 18 U/L (7.0-40); AST/SGOT 14 U/L (<34); BILIRUBIN,TOTAL 0.3 MG/DL (0.3-1.2); BLOOD UREA NITROGEN 10 MG/DL (9-23); CALCIUM LEVEL 9.2 MG/DL (8.3-10.6); CARBON DIOXIDE LEVEL 28 MMOL/L (20-31); CHLORIDE LEVEL 105 MMOL/L (98-107); CHOLESTEROL LEVEL 193 MG/DL (<200); CHOLESTEROL RISK RATIO 3.75 (<5); GLOMERULAR FILTRATION RATE > 60.0 (>45); GLUCOSE, FASTING 81 MG/DL (74-106); HDL CHOLESTEROL 51.4 MG/DL (>40); IRON (FE) 63 UG/DL (50-170); LDL CHOLESTEROL 115.6 MG/DL (<100); NON-HDL-C 141.6 MG/DL; PERCENT SATURATION 19.7 % (13.2-45.0); POTASSIUM SERUM 3.7 MMOL/L (3.5-5.1); SODIUM LEVEL 140 MMOL/L (136-145); TOTAL PROTEIN 7.6 G/DL (5.7-8.2); TRIGLYCERIDES LEVEL 130 MG/DL (<150)
[2023-12-23 11:31] LABS: TOTAL 25(OH) VITAMIN D 54.8 NG/ML (20.0-100.0); VITAMIN B12 LEVEL 895 PG/ML (211-911)
== END ==
LOC: M PLALAB 07:10
PROVIDERS: ATTEND Physician Assistant
DX: Z98.84 Bariatric surgery status (principal)

== ENCOUNTER → 2023-12-23 | Outpatient (CLI) | payer MEDICARE, MEDICAID ==
[2023-12-23 11:17] LABS: BASO # 0.1 10^3/uL (0.0-0.2); EOS # 0.2 10^3/uL (0.0-0.5); EOS % 2.8 % (0.0-3.0); HEMATOCRIT 44.4 % (36.0-47.0); HEMOGLOBIN 14.4 g/dl (12.0-15.5); LYMPH % 24.4 % (24.0-44.0); MEAN CORPUSCULAR HEMOGLOBIN 30.8 pg (27.0-33.0); MEAN CORPUSCULAR HGB CONC 32.4 g/dl (32.0-36.5); MEAN CORPUSCULAR VOLUME 94.9 fl (80.0-96.0); MONO # 0.5 10^3/uL (0.0-0.8); MONO % 6.3 % (2.0-8.0); NEUTROPHILS # 5.5 10^3/uL (1.5-8.5); NEUTROPHILS % 65.3 % (36.0-66.0); PLATELET COUNT, AUTOMATED 319 10^3/uL (150-450); RED BLOOD COUNT 4.68 10^6/uL (4.00-5.40); WHITE BLOOD COUNT 8.4 10^3/uL (4.0-10.0)
[2023-12-23 11:24] LABS: ALBUMIN 3.9 G/DL (3.2-5.2); BILIRUBIN,TOTAL 0.3 MG/DL (0.3-1.2); CALCIUM LEVEL 9.8 MG/DL (8.3-10.6); CREATININE FOR GFR 1.04 MG/DL (0.55-1.30); GLOMERULAR FILTRATION RATE 57.5 (>45); MAGNESIUM LEVEL 2.1 MG/DL (1.8-2.4); POTASSIUM SERUM 4.4 MMOL/L (3.5-5.1); TOTAL PROTEIN 7.5 G/DL (5.7-8.2)
[2023-12-23 11:25] LABS: FERRITIN 29.4 NG/ML (7.3-270.7); FREE T4 0.98 NG/DL (0.89-1.76); PTH INTACT 100.8 PG/ML (18.5-88.0)
[2023-12-23 11:26] LABS: THYROID STIMULATING HORMONE 0.232 uIU/ML (0.55-4.78); TOTAL 25(OH) VITAMIN D 49.3 NG/ML (20.0-100.0)
[2023-12-31 14:47] LABS: ALPHA 2-MACROGLOBULINS,QN 215 mg/dL (106-279); ALT (SGPT) P5P 13 U/L (6-29); APOLIPOPROTEIN A-1 177 mg/dL (101-198); BILIRUBIN, TOTAL 0.3 mg/dL (0.2-1.2); FIBROSIS SCORE 0.06; FIBROSIS STAGE NO FIBROSIS (F0); GGT 7 U/L (3-65); HAPTOGLOBIN 174 mg/dL (43-212); NECROINFLAM ACT GRADE NO ACTIVITY (A0); NECROINFLAM ACT SCORE 0.03
== END ==
LOC: M PLALAB 07:13
PROVIDERS: ATTEND Family Medicine
DX: D50.9 Iron deficiency anemia, unspecified (principal); C73 Malignant neoplasm of thyroid gland; I50.32 Chronic diastolic (congestive) heart failure; E55.9 Vitamin D deficiency, unspecified; K76.0 Fatty (change of) liver, not elsewhere classified; Z98.84 Bariatric surgery status

== ENCOUNTER → 2023-12-30 | Outpatient (CLI) | payer MEDICARE, MEDICAID | LOC: M PLAIMG 14:56 | DX: J20.9 Acute bronchitis, unspecified (principal) ==

== ENCOUNTER → 2023-12-30 | Outpatient (REF) | payer MEDICARE, MEDICAID | LOC: M SFHCPLAZ 14:38 | DX: J20.9 Acute bronchitis, unspecified (principal); Z53.9 Procedure and treatment not carried out, unspecified reason ==

== ENCOUNTER → 2024-01-06 | Outpatient (REF) | payer MEDICARE, MEDICAID | LOC: M SFHCPLAZ 14:20 | DX: L03.90 Cellulitis, unspecified (principal) ==

== ENCOUNTER → 2024-01-07 | Outpatient (REF) | payer MEDICARE, MEDICAID | LOC: M SFHCPLAZ 10:52 | DX: L03.90 Cellulitis, unspecified (principal) ==

== ENCOUNTER → 2024-01-27 | Outpatient (CLI) | payer MEDICARE, MEDICAID | LOC: M RAD 08:25 | DX: J40 Bronchitis, not specified as acute or chronic (principal); R91.8 Other nonspecific abnormal finding of lung field ==

== ENCOUNTER → 2024-03-01 | Outpatient (CLI) | payer MEDICARE, MEDICAID ==
[~2024-03-01] MED LIST changes: +META-10 PO; -META1TAB22 PO
[2024-03-01 14:48] LABS: BASO # 0.1 10^3/uL (0.0-0.2); BASO % 0.4 % (0.0-1.0); EOS # 0.3 10^3/uL (0.0-0.5); EOS % 1.8 % (0.0-3.0); HEMATOCRIT 43.7 % (36.0-47.0); HEMOGLOBIN 14.1 g/dl (12.0-15.5); LYMPH % 14.2 % (24.0-44.0); MEAN CORPUSCULAR HEMOGLOBIN 30.3 pg (27.0-33.0); MEAN CORPUSCULAR HGB CONC 32.3 g/dl (32.0-36.5); MEAN CORPUSCULAR VOLUME 93.8 fl (80.0-96.0); MONO # 1.4 10^3/uL (0.0-0.8); MONO % 9.8 % (2.0-8.0); NEUTROPHILS # 10.5 10^3/uL (1.5-8.5); NEUTROPHILS % 73.5 % (36.0-66.0); PLATELET COUNT, AUTOMATED 329 10^3/uL (150-450); RED BLOOD COUNT 4.66 10^6/uL (4.00-5.40); WHITE BLOOD COUNT 14.3 10^3/uL (4.0-10.0)
[2024-03-01 15:22] LABS: IRON (FE) 43 UG/DL (50-170); PERCENT SATURATION 12.7 % (13.2-45.0); TOTAL IRON BINDING CAPACITY 339 UG/DL (250-425)
[2024-03-01 15:23] LABS: ALBUMIN 3.7 G/DL (3.2-5.2); ALKALINE PHOSPHATASE 58 U/L (35-104); ALT/SGPT 31 U/L (7.0-40); AST/SGOT 16 U/L (<34); BILIRUBIN,TOTAL 0.4 MG/DL (0.3-1.2); BLOOD UREA NITROGEN 13 MG/DL (9-23); CALCIUM LEVEL 9.4 MG/DL (8.3-10.6); CARBON DIOXIDE LEVEL 27 MMOL/L (20-31); CHLORIDE LEVEL 106 MMOL/L (98-107); CHOLESTEROL LEVEL 153 MG/DL (<200); CHOLESTEROL RISK RATIO 2.38 (<5); CREATININE FOR GFR 0.96 MG/DL (0.55-1.30); FERRITIN 55.7 NG/ML (7.3-270.7); FREE T4 0.94 NG/DL (0.89-1.76); GLOMERULAR FILTRATION RATE > 60.0 (>45); GLUCOSE, FASTING 79 MG/DL (74-106); HDL CHOLESTEROL 64.2 MG/DL (>40); LDL CHOLESTEROL 68.4 MG/DL (<100); NON-HDL-C 88.8 MG/DL; POTASSIUM SERUM 4.2 MMOL/L (3.5-5.1); PTH INTACT 79.5 PG/ML (18.5-88.0); SODIUM LEVEL 140 MMOL/L (136-145); THYROID STIMULATING HORMONE 0.341 uIU/ML (0.55-4.78); TOTAL PROTEIN 7.6 G/DL (5.7-8.2); TRIGLYCERIDES LEVEL 102 MG/DL (<150)
[2024-03-01 15:24] LABS: TOTAL 25(OH) VITAMIN D 36.1 NG/ML (20.0-100.0); VITAMIN B12 LEVEL 435 PG/ML (211-911)
== END ==
LOC: M PLALAB 11:34
PROVIDERS: ATTEND Family Medicine
DX: D50.9 Iron deficiency anemia, unspecified (principal); I50.32 Chronic diastolic (congestive) heart failure; E55.9 Vitamin D deficiency, unspecified; C73 Malignant neoplasm of thyroid gland; E78.2 Mixed hyperlipidemia

== ENCOUNTER → 2024-04-29 | Outpatient (CLI) | payer MEDICARE, MEDICAID ==
[2024-04-29 16:06] LABS: BASO # 0.2 10^3/uL (0.0-0.2); BASO % 0.8 % (0.0-1.0); EOS # 0.2 10^3/uL (0.0-0.5); HEMATOCRIT 37.5 % (36.0-47.0); HEMOGLOBIN 12.5 g/dl (12.0-15.5); LYMPH # 2.5 10^3/uL (1.5-5.0); LYMPH % 11.9 % (24.0-44.0); MEAN CORPUSCULAR HEMOGLOBIN 29.8 pg (27.0-33.0); MEAN CORPUSCULAR HGB CONC 33.3 g/dl (32.0-36.5); MEAN CORPUSCULAR VOLUME 89.3 fl (80.0-96.0); MONO # 1.3 10^3/uL (0.0-0.8); NEUTROPHILS % 79.7 % (36.0-66.0); PLATELET COUNT, AUTOMATED 275 10^3/uL (150-450); WHITE BLOOD COUNT 21.3 10^3/uL (4.0-10.0)
[2024-04-29 16:11] LABS: HEMOGLOBIN A1c 5.4 % (4.0-6.0)
[2024-04-29 16:57] LABS: ALBUMIN 3.4 G/DL (3.2-5.2); ALKALINE PHOSPHATASE 65 U/L (35-104); ALT/SGPT 28 U/L (7.0-40); AST/SGOT 17 U/L (<34); BILIRUBIN,TOTAL 0.7 MG/DL (0.3-1.2); BLOOD UREA NITROGEN 12 MG/DL (9-23); CALCIUM LEVEL 8.2 MG/DL (8.3-10.6); CARBON DIOXIDE LEVEL 30 MMOL/L (20-31); CHLORIDE LEVEL 103 MMOL/L (98-107); CREATININE FOR GFR 0.98 MG/DL (0.55-1.30); GLOMERULAR FILTRATION RATE > 60.0 (>45); GLUCOSE, FASTING 86 MG/DL (74-106); MAGNESIUM LEVEL 1.9 MG/DL (1.8-2.4); POTASSIUM SERUM 3.1 MMOL/L (3.5-5.1); SODIUM LEVEL 143 MMOL/L (136-145)
== END ==
LOC: M PLALAB 11:50
DX: E11.9 Type 2 diabetes mellitus without complications (principal); Z98.84 Bariatric surgery status

== ENCOUNTER → 2024-04-29 | Outpatient (REF) | payer MEDICARE, MEDICAID | LOC: M SFHCPLAZ 11:45 | DX: E11.9 Type 2 diabetes mellitus without complications (principal); Z98.84 Bariatric surgery status ==

== ENCOUNTER → 2024-04-30 | Outpatient (CLI) | payer MEDICARE, MEDICAID ==
[2024-04-30 11:17] LABS: PTH INTACT 126.6 PG/ML (18.5-88.0)
[2024-04-30 11:18] LABS: C REACTIVE PROTEIN QUANTITATIV 4.15 MG/DL (<1.0); RHEUMATOID FACTOR QUANT 7.5 IU/ML (<14)
[2024-05-04 10:17] LABS: ANA PATTERN Nuclear, Homogeneous (NEGATIVE); ANA SCREEN, IFA POSITIVE (NEGATIVE); ANA TITER 1:40 titer (<1:40)
== END ==
LOC: M PLALAB 08:50
DX: R68.81 Early satiety (principal)

== ENCOUNTER → 2024-04-30 | Outpatient (CLI) | payer MEDICARE, MEDICAID ==
[~2024-04-30] MED LIST changes: +ISOVUE-370 76% 100ML VIAL As Ordered ONE
== END ==
LOC: M RAD 09:22
DX: R68.81 Early satiety (principal); M43.16 Spondylolisthesis, lumbar region; N85.00 Endometrial hyperplasia, unspecified
CPT/HCPCS: 36415; 74177; 83970; 85652; 86038; 86039; 86140; 86431; Q9967

== ENCOUNTER → 2024-05-13 | Outpatient (CLI) | payer MEDICARE, MEDICAID ==
[~2024-05-13] MED LIST changes: -ISOVUE-370 76% 100ML VIAL As Ordered ONE
== END ==
LOC: M WHC 09:59
PROVIDERS: ATTEND Family Medicine
DX: Z12.31 Encounter for screening mammogram for malignant neoplasm of breast (principal); R92.313 Mammographic fatty tissue density, bilateral breasts

== ENCOUNTER → 2024-05-14 | Outpatient (CLI) | payer MEDICARE, MEDICAID ==
[2024-05-14 17:43] LABS: HEMATOCRIT 40.1 % (36.0-47.0); HEMOGLOBIN 12.8 g/dl (12.0-15.5); MEAN CORPUSCULAR HGB CONC 31.9 g/dl (32.0-36.5); MEAN CORPUSCULAR VOLUME 90.9 fl (80.0-96.0); PLATELET COUNT, AUTOMATED 335 10^3/uL (150-450); RED BLOOD COUNT 4.41 10^6/uL (4.00-5.40)
[2024-05-14 18:04] LABS: ALBUMIN 3.5 G/DL (3.2-5.2); BILIRUBIN,TOTAL 0.4 MG/DL (0.3-1.2); CALCIUM LEVEL 8.6 MG/DL (8.3-10.6); CREATININE FOR GFR 1.05 MG/DL (0.55-1.30); GLOMERULAR FILTRATION RATE 56.9 (>45); POTASSIUM SERUM 4.2 MMOL/L (3.5-5.1); TOTAL PROTEIN 7.3 G/DL (5.7-8.2)
== END ==
LOC: M PLALAB 15:12
DX: J40 Bronchitis, not specified as acute or chronic (principal)

== ENCOUNTER → 2024-05-18 | Outpatient (CLI) | payer MEDICARE, MEDICAID ==
[2024-05-18 07:20] LABS: IONIZED CALCIUM 4.4 MG/DL (4.5-5.3)
[2024-05-18 07:56] LABS: HEMATOCRIT 41.2 % (36.0-47.0); HEMOGLOBIN 13.4 g/dl (12.0-15.5); MEAN CORPUSCULAR HEMOGLOBIN 29.5 pg (27.0-33.0); MEAN CORPUSCULAR HGB CONC 32.5 g/dl (32.0-36.5); MEAN CORPUSCULAR VOLUME 90.5 fl (80.0-96.0); PLATELET COUNT, AUTOMATED 348 10^3/uL (150-450); RED BLOOD COUNT 4.55 10^6/uL (4.00-5.40); WHITE BLOOD COUNT 11.1 10^3/uL (4.0-10.0)
[2024-05-18 08:18] LABS: HEMOGLOBIN A1c 5.2 % (4.0-6.0)
[2024-05-18 08:24] LABS: IRON (FE) 55 UG/DL (50-170); PERCENT SATURATION 15.9 % (13.2-45.0); TOTAL IRON BINDING CAPACITY 346 UG/DL (250-425)
[2024-05-18 08:25] LABS: ALBUMIN 3.6 G/DL (3.2-5.2); ALKALINE PHOSPHATASE 67 U/L (35-104); ALT/SGPT 32 U/L (7.0-40); AST/SGOT 30 U/L (<34); BILIRUBIN,TOTAL 0.4 MG/DL (0.3-1.2); BLOOD UREA NITROGEN 16 MG/DL (9-23); CALCIUM LEVEL 9.1 MG/DL (8.3-10.6); CARBON DIOXIDE LEVEL 30 MMOL/L (20-31); CHLORIDE LEVEL 105 MMOL/L (98-107); CHOLESTEROL LEVEL 131 MG/DL (<200); CHOLESTEROL RISK RATIO 2.94 (<5); CREATININE FOR GFR 1.13 MG/DL (0.55-1.30); GLOMERULAR FILTRATION RATE 52.3 (>45); GLUCOSE, FASTING 96 MG/DL (74-106); HDL CHOLESTEROL 44.5 MG/DL (>40); LDL CHOLESTEROL 63.3 MG/DL (<100); NON-HDL-C 86.5 MG/DL; POTASSIUM SERUM 3.9 MMOL/L (3.5-5.1); SODIUM LEVEL 146 MMOL/L (136-145); TOTAL PROTEIN 7.4 G/DL (5.7-8.2); TRIGLYCERIDES LEVEL 116 MG/DL (<150)
[2024-05-18 08:26] LABS: FERRITIN 73.6 NG/ML (7.3-270.7); TOTAL 25(OH) VITAMIN D 44.4 NG/ML (20.0-100.0)
[2024-05-18 08:27] LABS: FOLATE > 24.00 NG/ML (>5.4); VITAMIN B12 LEVEL 599 PG/ML (211-911)
[2024-05-21 10:47] LABS: COPPER PLASMA 92 mcg/dL (70-175); SELENIUM PLASMA LEVEL 121 mcg/L (63-160); ZINC PLASMA 90 mcg/dL (60-130)
[2024-05-22 03:02] LABS: VITAMIN A, RETINOL LEVEL 73 mcg/dL (38-98)
[2024-05-23 17:27] LABS: VITAMIN B1 LEVEL WHOLE BLOOD 171 nmol/L (78-185)
== END ==
LOC: M LAB 06:38
PROVIDERS: ATTEND Physician Assistant
DX: Z98.84 Bariatric surgery status (principal); Z79.899 Other long term (current) drug therapy

== ENCOUNTER → 2024-05-24 | Outpatient (REF) | payer MEDICARE, MEDICAID | LOC: M SFHCPLAZ 16:29 | DX: J40 Bronchitis, not specified as acute or chronic (principal) ==

== ENCOUNTER → 2024-06-22 | Outpatient (CLI) | payer MEDICARE, MEDICAID ==
[2024-06-22 10:31] LABS: BASO # 0.1 10^3/uL (0.0-0.2); EOS # 0.2 10^3/uL (0.0-0.5); HEMATOCRIT 42.8 % (36.0-47.0); HEMOGLOBIN 13.9 g/dl (12.0-15.5); LYMPH # 2.1 10^3/uL (1.5-5.0); LYMPH % 26.6 % (24.0-44.0); MEAN CORPUSCULAR HEMOGLOBIN 29.2 pg (27.0-33.0); MEAN CORPUSCULAR HGB CONC 32.5 g/dl (32.0-36.5); MEAN CORPUSCULAR VOLUME 89.9 fl (80.0-96.0); MONO # 0.6 10^3/uL (0.0-0.8); MONO % 7.6 % (2.0-8.0); NEUTROPHILS # 4.9 10^3/uL (1.5-8.5); NEUTROPHILS % 61.5 % (36.0-66.0); PLATELET COUNT, AUTOMATED 298 10^3/uL (150-450); RED BLOOD COUNT 4.76 10^6/uL (4.00-5.40); WHITE BLOOD COUNT 7.9 10^3/uL (4.0-10.0)
[2024-06-22 10:36] LABS: ERYTHROCYTE SEDIMENTATION RATE 31 mm/hr (0-30)
[2024-06-22 11:03] LABS: PTH INTACT 131.8 PG/ML (18.5-88.0)
[2024-06-22 11:05] LABS: C REACTIVE PROTEIN QUANTITATIV < 0.50 MG/DL (<1.0); COMPLEMENT C3 140.4 MG/DL (90.0-170.0)
[2024-06-22 11:07] LABS: THYROID STIMULATING HORMONE 0.111 uIU/ML (0.55-4.78)
[2024-06-24 08:48] LABS: DRVV SCREEN 33.8 SECONDS
[2024-06-24 08:56] LABS: PTT LUPUS TYPE ANTICOAG SCREEN 0.89 (0-1.20)
[2024-06-24 16:52] LABS: ANA PATTERN Nuclear, Homogeneous (NEGATIVE); ANA SCREEN, IFA POSITIVE (NEGATIVE)
== END ==
LOC: M PLALAB 08:30
DX: R53.83 Other fatigue (principal); R05.3 Chronic cough

== ENCOUNTER → 2024-06-22 | Outpatient (REF) | payer MEDICARE, MEDICAID | LOC: M SFHCPLAZ 08:21 | DX: R53.83 Other fatigue (principal); R05.3 Chronic cough ==

== ENCOUNTER → 2024-06-25 | Outpatient (REF) | payer MEDICARE, MEDICAID | LOC: M SFHCPLAZ 10:46 | DX: R53.82 Chronic fatigue, unspecified (principal); J41.1 Mucopurulent chronic bronchitis ==

== ENCOUNTER → 2024-06-25 | Outpatient (CLI) | payer MEDICARE, MEDICAID ==
[2024-06-25 14:18] LABS: FREE T3 2.5 PG/ML (2.3-4.2)
[2024-06-25 14:21] LABS: PROCALCITONIN <0.04 ng/ml
[2024-06-26 14:07] LABS: VITAMIN D 1,25 DIHYDROXY 90.6 pg/mL (24.8-81.5)
== END ==
LOC: M PLALAB 11:15
DX: R53.82 Chronic fatigue, unspecified (principal); J41.1 Mucopurulent chronic bronchitis; E55.9 Vitamin D deficiency, unspecified

== ENCOUNTER → 2024-07-13 | Outpatient (CLI) | payer MEDICARE, MEDICAID | LOC: M RAD 13:52 | PROVIDERS: ATTEND Family Medicine | DX: Z87.891 Personal history of nicotine dependence (principal) ==

== ENCOUNTER → 2024-07-14 | Outpatient (REF) | payer MEDICARE, MEDICAID | LOC: M SFHCPLAZ 11:36 | PROVIDERS: ATTEND Family Medicine | DX: J45.20 Mild intermittent asthma, uncomplicated (principal) ==

== ENCOUNTER → 2024-07-27 | Outpatient (CLI) | payer MEDICARE, MEDICAID ==
[2024-07-27 14:02] LABS: BASO # 0.1 10^3/uL (0.0-0.2); BASO % 0.3 % (0.0-1.0); EOS # 0.1 10^3/uL (0.0-0.5); EOS % 0.8 % (0.0-3.0); HEMATOCRIT 43.7 % (36.0-47.0); HEMOGLOBIN 13.9 g/dl (12.0-15.5); LYMPH # 2.6 10^3/uL (1.5-5.0); LYMPH % 14.9 % (24.0-44.0); MEAN CORPUSCULAR HEMOGLOBIN 28.9 pg (27.0-33.0); MEAN CORPUSCULAR HGB CONC 31.8 g/dl (32.0-36.5); MEAN CORPUSCULAR VOLUME 90.9 fl (80.0-96.0); NEUTROPHILS # 13.6 10^3/uL (1.5-8.5); NEUTROPHILS % 77.6 % (36.0-66.0); PLATELET COUNT, AUTOMATED 320 10^3/uL (150-450); RED BLOOD COUNT 4.81 10^6/uL (4.00-5.40); WHITE BLOOD COUNT 17.5 10^3/uL (4.0-10.0)
[2024-07-27 14:12] LABS: FERRITIN 86.3 NG/ML (7.3-270.7); FREE T4 0.98 NG/DL (0.89-1.76)
[2024-07-27 14:13] LABS: THYROID STIMULATING HORMONE 0.203 uIU/ML (0.55-4.78)
[2024-07-27 14:14] LABS: ALBUMIN 3.8 G/DL (3.2-5.2); BILIRUBIN,TOTAL 0.6 MG/DL (0.3-1.2); CALCIUM LEVEL 8.8 MG/DL (8.3-10.6); CHOLESTEROL RISK RATIO 2.63 (<5); CREATININE FOR GFR 0.98 MG/DL (0.55-1.30); GLOMERULAR FILTRATION RATE 65.7 (>45); HDL CHOLESTEROL 55.8 MG/DL (>40); LDL CHOLESTEROL 63.6 MG/DL (<100); MAGNESIUM LEVEL 1.9 MG/DL (1.8-2.4); NON-HDL-C 91.2 MG/DL; POTASSIUM SERUM 3.9 MMOL/L (3.5-5.1); PTH INTACT 80.5 PG/ML (18.5-88.0); TOTAL 25(OH) VITAMIN D 29.8 NG/ML (20.0-100.0)
[2024-07-27 14:17] LABS: PROCALCITONIN 0.09 ng/ml
[2024-07-27 14:34] LABS: HEMOGLOBIN A1c 4.8 % (4.0-6.0)
== END ==
LOC: M PLAIMG 09:19
PROVIDERS: ATTEND Family Medicine
DX: R91.8 Other nonspecific abnormal finding of lung field (principal); D50.9 Iron deficiency anemia, unspecified; R05.1 Acute cough; I50.32 Chronic diastolic (congestive) heart failure; C73 Malignant neoplasm of thyroid gland; E78.2 Mixed hyperlipidemia; E55.9 Vitamin D deficiency, unspecified; E11.9 Type 2 diabetes mellitus without complications; J45.20 Mild intermittent asthma, uncomplicated

== ENCOUNTER → 2024-08-25 | Outpatient (CLI) | payer MEDICARE, MEDICAID | LOC: M PLAIMG 07:08 | PROVIDERS: ATTEND Family Medicine | DX: J18.9 Pneumonia, unspecified organism (principal) ==

== ENCOUNTER → 2024-10-13 | Outpatient (REF) | payer MEDICARE, MEDICAID ==
[~2024-10-13] MED LIST changes: -PRAV40TA2 PO; +PRAV40TA85 PO
== END ==
LOC: M SFHCPLAZ 10:22
PROVIDERS: ATTEND Family Medicine
DX: J18.9 Pneumonia, unspecified organism (principal)

== ENCOUNTER → 2024-10-20 | Outpatient (CLI) | payer MEDICARE, MEDICAID ==
[2024-10-20 10:37] LABS: BASO # 0.1 10^3/uL (0.0-0.2); BASO % 0.5 % (0.0-1.0); EOS # 0.3 10^3/uL (0.0-0.5); EOS % 2.6 % (0.0-3.0); LYMPH # 2.9 10^3/uL (1.5-5.0); LYMPH % 22.3 % (24.0-44.0); MONO # 0.6 10^3/uL (0.0-0.8); MONO % 4.6 % (2.0-8.0); NEUTROPHILS # 9.2 10^3/uL (1.5-8.5); NEUTROPHILS % 69.7 % (36.0-66.0); PLATELET COUNT, AUTOMATED 279 10^3/uL (150-450)
[2024-10-20 10:46] LABS: ALT/SGPT 42.0 U/L (7.0-40); AST/SGOT 32.0 U/L (<34); CALCIUM LEVEL 9.3 MG/DL (8.3-10.6); CARBON DIOXIDE LEVEL 28.0 MMOL/L (20-31); CHLORIDE LEVEL 105.0 MMOL/L (98-107); CHOLESTEROL LEVEL 146.0 MG/DL (<200); CHOLESTEROL RISK RATIO 2.29 (<5); CREATININE FOR GFR 1.0 MG/DL (0.55-1.30); FREE T4 1.05 NG/DL (0.89-1.76); GLOMERULAR FILTRATION RATE 64.1 (>45); LDL CHOLESTEROL 61.3 MG/DL (<100); MAGNESIUM LEVEL 2.1 MG/DL (1.8-2.4); NON-HDL-C 82.5 MG/DL; POTASSIUM SERUM 4.7 MMOL/L (3.5-5.1); PTH INTACT 99.8 PG/ML (18.5-88.0); SODIUM LEVEL 143.0 MMOL/L (136-145); TOTAL 25(OH) VITAMIN D 37.9 NG/ML (20.0-100.0); TRIGLYCERIDES LEVEL 106.0 MG/DL (<150); VITAMIN B12 LEVEL 376.0 PG/ML (211-911)
[2024-10-20 12:50] LABS: ESTIMATED AVERAGE GLUCOSE 114.0 MG/DL (60-110)
== END ==
LOC: M PLALAB 06:55
PROVIDERS: ATTEND Family Medicine
DX: D50.9 Iron deficiency anemia, unspecified (principal); E07.9 Disorder of thyroid, unspecified; E78.00 Pure hypercholesterolemia, unspecified

== ENCOUNTER → 2024-11-01 | Outpatient (CLI) | payer MEDICARE, MEDICAID ==
[~2024-11-01] MED LIST changes: +ISOVUE-370 76% 100 ML VIAL As Ordered ONE
== END ==
LOC: M RAD 14:06
PROVIDERS: ATTEND Family Medicine
DX: R91.1 Solitary pulmonary nodule (principal)
CPT/HCPCS: 71260; Q9967

== ENCOUNTER → 2024-11-02 | Outpatient (CLI) | payer MEDICARE, MEDICAID ==
[~2024-11-02] MED LIST changes: -ISOVUE-370 76% 100 ML VIAL As Ordered ONE
== END ==
LOC: M PLAIMG 14:14
PROVIDERS: ATTEND Family Medicine
DX: M47.816 Spondylosis without myelopathy or radiculopathy, lumbar region (principal)

== ENCOUNTER 2024-11-25 10:05 | Outpatient (CLI) | payer MEDICARE, MEDICAID ==
[~2024-11-25] VITALS: Ht 177.8 cm; Wt 117.7 kg
[~2024-11-25 10:05] MED LIST changes: +ALBUTEROL SULFATE 2.5 MG/0.5 ML INH CONCENTRATE NEB SOLN INH PRN; +EPINEPHrine INJ 1 MG/ML 1ML AMP IM PRN; +diphenhydrAMINE 50 MG/ML VIAL IV PRN
[2024-11-25 10:30] VITALS: BP 111/63; O2SAT 98
[2024-11-25] MEDS: IRON SUCROSE 500 MG in NS 250 ML OVER 4 HRS IV ONE (11:01)
[2024-11-25 12:00] VITALS: BP 126/74; O2SAT 97
[2024-11-25 13:00] VITALS: BP 107/65; O2SAT 100
[2024-11-25 15:02] VITALS: BP 115/70; O2SAT 96
== END 2024-11-25 15:10 | disposition home or self-care (01) ==
LOC: M INFU 10:05
PROVIDERS: ATTEND Family Medicine
DX: D50.9 Iron deficiency anemia, unspecified (principal)
CPT/HCPCS: 96365; 96366; J1756

== ENCOUNTER → 2024-12-02 | Outpatient (CLI) | payer MEDICARE, MEDICAID ==
[~2024-12-02] VITALS: Ht 177.8 cm; Wt 117.0 kg
[2024-12-02 11:10] VITALS: BP 120/67; O2SAT 96
[2024-12-02] MEDS: IRON SUCROSE 500 MG in NS 250 ML OVER 4 HRS IV ONE (11:28)
[2024-12-02 12:30] VITALS: BP 103/58; O2SAT 97
[2024-12-02 13:30] VITALS: BP 110/64; O2SAT 98
[2024-12-02 14:30] VITALS: BP 116/65; O2SAT 96
[2024-12-02 15:30] VITALS: BP 121/67; O2SAT 97
== END ==
LOC: M INFU 16:48
PROVIDERS: ATTEND Family Medicine
DX: D50.9 Iron deficiency anemia, unspecified (principal)
CPT/HCPCS: 96365; 96366; J1756

== ENCOUNTER → 2024-12-10 | Outpatient (CLI) | payer MEDICARE, MEDICAID ==
[~2024-12-10] MED LIST changes: -ALBUTEROL SULFATE 2.5 MG/0.5 ML INH CONCENTRATE NEB SOLN INH PRN; -EPINEPHrine INJ 1 MG/ML 1ML AMP IM PRN; -diphenhydrAMINE 50 MG/ML VIAL IV PRN
== END ==
LOC: M PLARAD 13:54
PROVIDERS: ATTEND Family Medicine
DX: M47.816 Spondylosis without myelopathy or radiculopathy, lumbar region (principal)

== ENCOUNTER → 2025-01-18 | Outpatient (CLI) | payer MEDICARE, MEDICAID ==
[2025-01-18 11:26] LABS: BASO # 0.1 10^3/uL (0.0-0.2); BASO % 1.2 % (0.0-1.0); EOS # 0.3 10^3/uL (0.0-0.5); EOS % 3.9 % (0.0-3.0); LYMPH # 3.1 10^3/uL (1.5-5.0); LYMPH % 41.2 % (24.0-44.0); MONO # 0.6 10^3/uL (0.0-0.8); MONO % 7.4 % (2.0-8.0); NEUTROPHILS # 3.4 10^3/uL (1.5-8.5); NEUTROPHILS % 46.0 % (36.0-66.0); PLATELET COUNT, AUTOMATED 306 10^3/uL (150-450)
[2025-01-18 14:27] LABS: ESTIMATED AVERAGE GLUCOSE 111.0 MG/DL (60-110)
[2025-01-18 14:53] LABS: ALT/SGPT 57.0 U/L (7.0-40); AST/SGOT 40.0 U/L (<34); CALCIUM LEVEL 8.8 MG/DL (8.3-10.6); CARBON DIOXIDE LEVEL 30.0 MMOL/L (20-31); CHLORIDE LEVEL 104.0 MMOL/L (98-107); CHOLESTEROL LEVEL 149.0 MG/DL (<200); CHOLESTEROL RISK RATIO 2.24 (<5); CREATININE FOR GFR 1.06 MG/DL (0.55-1.30); FREE T4 1.07 NG/DL (0.89-1.76); GLOMERULAR FILTRATION RATE 59.8 (>45); LDL CHOLESTEROL 61.9 MG/DL (<100); MAGNESIUM LEVEL 2.2 MG/DL (1.8-2.4); NON-HDL-C 82.5 MG/DL; POTASSIUM SERUM 4.1 MMOL/L (3.5-5.1); PTH INTACT 138.9 PG/ML (18.5-88.0); SODIUM LEVEL 143.0 MMOL/L (136-145); TOTAL 25(OH) VITAMIN D 37.6 NG/ML (20.0-100.0); TRIGLYCERIDES LEVEL 103.0 MG/DL (<150); VITAMIN B12 LEVEL 555.0 PG/ML (211-911)
== END ==
LOC: M PLALAB 07:09
PROVIDERS: ATTEND Family Medicine
DX: D50.9 Iron deficiency anemia, unspecified (principal); I50.32 Chronic diastolic (congestive) heart failure; E78.2 Mixed hyperlipidemia; E55.9 Vitamin D deficiency, unspecified; C73 Malignant neoplasm of thyroid gland; E11.9 Type 2 diabetes mellitus without complications; K76.0 Fatty (change of) liver, not elsewhere classified